=== PATIENT | male | born 1990 | race Caucasian/White ===

== ENCOUNTER 2016-06-24 23:31 | Inpatient (IN) | payer BC, OTHER ==
[~2016-06-24] VITALS: Ht 165.1 cm; Wt 85.9 kg
[~2016-06-24 23:31] MED LIST: FOLI800T PO
[2016-06-24] MEDS ORDERED: CEFTRIAXONE SOD INJ 1 GM ADDVIAL IV STA (23:57)
[2016-06-24] MEDS ORDERED: SODIUM CHLORIDE 0.9% 1000ML 1,000 ML IV STA (23:57)
[2016-06-25] VITALS (11 sets, daily range): BP systolic 73–119; BP diastolic 44–70; PULSE 95–119; TEMP 36.9–38.2; O2SAT 95–99; Ht 165.1 cm; Wt 85.9 kg
[2016-06-25 01:38] LABS: HEMATOCRIT 24.1 % (42-52); MEAN CELL VOLUME 95.3 fL (80-100)
[2016-06-25 01:39] LABS: MEAN CORPUSCULAR HEMOGLOBIN 32.4 pg (25-34); PLATELET COUNT 212 K/uL (130-400)
[2016-06-25 01:40] LABS: MEAN PLATELET VOLUME 10.2 fL (7.4-10.4); RED BLOOD COUNT 2.53 M/uL (4.7-6.1)
[2016-06-25 01:42] LABS: ALKALINE PHOSPHATASE 59 U/L (45-117); ALT/SGPT 25 U/L (12-78); AST/SGOT 57 U/L (15-37); BLOOD UREA NITROGEN 17 mg/dl (7-18); BUN/CREATININE RATIO 16.7 (10-20); C-REACTIVE PROTEIN 7.83 mg/dl (0-0.29); CALCIUM 8.1 mg/dl (8.5-10.1); CARBON DIOXIDE 24 mmol/L (21-32); CHLORIDE 102 mmol/L (98-107); GLUCOSE 110 mg/dl (70-99); POTASSIUM 3.4 mmol/L (3.5-5.1); SODIUM 134 mmol/L (136-145)
[2016-06-25] MEDS ORDERED: IBUPROFEN 800 MG TAB PO STA (01:48)
[2016-06-25] MEDS ORDERED: IBUPROFEN 200 MG TAB ONE (01:49)
[2016-06-25] MEDS ORDERED: IBUPROFEN 600 MG TAB ONE (01:49)
[2016-06-25] MEDS ORDERED: PIPERACILLIN/TAZOBACTAM 3.375 GM/100ML D5W IV STA (01:51)
[2016-06-25 02:07] LABS: ANISOCYTOSIS PRESENT; BASO % 0.2 %; BASO ABS # 0.04 K/uL (0-0.2); COMPLETE YES; EOS % 0.2 %; HOWELL-JOLLY BODIES OCCASIONAL; IG% 0.6 %; LYMPH % 13.2 %; MONO % 11.1 %; NEUT % 74.7 %; POLYCHROMASIA 3+; SPHEROCYTE 3+; VACUOLIZATION 1+
[2016-06-25] MEDS ORDERED: PIPERACILL/TAZOBAC IV 3.375 GM in DEXTROSE 5% 100ML IV STA (02:08)
--- NOTE | 2016-06-25 02:26 | EMERGENCY ROOM VISIT NOTE ---
History Report prepared by Dilcia: Kofi Sanders Under the Supervision of: Dr. Jeffrey Steiner D.O. First contact with patient: 23:49 Chief Complaint: FEVER Stated Complaint: FEVER,WEAKNESS,HEMOLIC ANEMIA History of Present Illness The patient is a 25 year old male who presents to the Emergency Room with complaints of a persistent fever beginning 2 days ago. The patient reports his symptoms have worsened today. He notes that he has hemolytic anemia. He notes having weakness, sore throat, swollen lymph nodes, and sharp pain near his sternum when drinking water. The patient denies having any abdominal pain. He adds that he had a blister on his lip that cut, and he did not cover it until today. He believes it may have become infected. The patient notes he is jaundice on a regular basis, and that it is worse now that he is sick. Source of History: patient Onset: this evening Position: other (global) Quality: other (fever) Timing: other (persistent) Associated Symptoms: + chest pain (upon drinking water), + sorethroat, + weakness, No abdominal pain Note: The patient reports being jaundice. Review of Systems See HPI for pertinent positives & negatives. A total of 10 systems reviewed and were otherwise negative. Past Medical & Surgical Medical Problems: (1) History of hemolytic anemia (2) History of hereditary spherocytosis Family History No pertinent family history stated. Social History Smoking Status: Never Smoker Marital Status: single Occupation Status: student Current/Historical Medications Scheduled Folic Acid (Folic Acid), 800 MCG PO DAILY Allergies Coded Allergies: No Known Allergies (Unverified , 06/25/16) Physical Exam Vital Signs Date Time Temp Pulse Resp B/P Pulse Ox O2 Delivery O2 Flow Rate FiO2 06/25/16 01:46 39.5 06/25/16 01:42 127 20 112/57 96 Room Air 06/25/16 00:01 139 06/24/16 23:37 38.3 141 20 106/41 99 Room Air Physical Exam CONSTITUTIONAL/VITAL SIGNS: Reviewed / noted above. GENERAL: Non-toxic in appearance. INTEGUMENTARY: Warm, dry, and Nitro. HEAD: Normocephalic. EYES: scleral icterus noted. ENT/OROPHARYNX: clear and moist. THROAT: Mild erythematous with few small exudates. LYMPHADENOPATHY/NECK: Is supple without lymphadenopathy or meningismus. RESPIRATORY: Lungs clear and equal. CARDIOVASCULAR: Tachycardic. GI/ABDOMEN: Soft and nontender. No organomegaly or pulsatile mass. No rebound or guarding. Normal bowel sounds. EXTREMITIES: Warm and well perfused. BACK: No CVA tenderness. NEUROLOGICAL: Intact without focal deficits. PSYCHIATRIC: normal affect. MUSCULOSKELETAL: Normally developed with good muscle tone. SKIN: Jaundice. Medical Decision & Procedures ER Provider Diagnostic Interpretation: X ray results and stated below per my interpretation: CHEST X-RAY: No acute disease; no pneumothorax; no pneumonia. Laboratory Results 06/25/16 01:00 Red Blood Count 2.53, Mean Corpuscular Volume 95.3, Mean Corpuscular Hemoglobin 32.4, Mean Corpuscular Hemoglobin Concent 34.0, Mean Platelet Volume 10.2, Neutrophils (%) (Auto) 74.7, Lymphocytes (%) (Auto) 13.2, Monocytes (%) (Auto) 11.1, Eosinophils (%) (Auto) 0.2, Basophils (%) (Auto) 0.2, Neutrophils # (Auto ) 19.31, Lymphocytes # (Auto) 3.40, Monocytes # (Auto) 2.86, Eosinophils # (Auto ) 0.04, Basophils # (Auto) 0.04 06/25/16 01:00 Test 06/25/16 00:10 06/25/16 01:00 Influenza Type A Antigen Neg for Influ A (NEG) Influenza Type B Antigen Neg for Influ B (NEG) White Blood Count 25.80 K/uL (4.8-10.8) Red Blood Count 2.53 M/uL (4.7-6.1) Hemoglobin 8.2 g/dL (14.0-18.0) Hematocrit 24.1 % (42-52) Mean Corpuscular Volume 95.3 fL (80-100) Mean Corpuscular Hemoglobin 32.4 pg (25-34) Mean Corpuscular Hemoglobin Concent 34.0 g/dl (32-36) Platelet Count 212 K/uL (130-400) Mean Platelet Volume 10.2 fL (7.4-10.4) Neutrophils (%) (Auto) 74.7 % Lymphocytes (%) (Auto) 13.2 % Monocytes (%) (Auto) 11.1 % Eosinophils (%) (Auto) 0.2 % Basophils (%) (Auto) 0.2 % Neutrophils # (Auto) 19.31 K/uL (1.4-6.5) Lymphocytes # (Auto) 3.40 K/uL (1.2-3.4) Monocytes # (Auto) 2.86 K/uL (0.11-0.59) Eosinophils # (Auto) 0.04 K/uL (0-0.5) Basophils # (Auto) 0.04 K/uL (0-0.2) RDW Standard Deviation 68.3 fL (36.4-46.3) RDW Coefficient of Variation 20.4 % (11.5-14.5) Immature Granulocyte % (Auto) 0.6 % Immature Granulocyte # (Auto) 0.15 K/uL (0.00-0.02) Nucleated RBC Absolute Count (auto) 0.21 K/uL (0-0) Nucleated Red Blood Cells % 0.8 % Toxic Vacuolation 1+ Polychromasia 3+ Anisocytosis PRESENT Spherocytes 3+ Pappenheimer Bodies 3+ Messina-Cotati Bodies OCCASIONAL Anion Gap 8.0 mmol/L (3-11) Est Creatinine Clear Calc Drug Dose 118.1 ml/min Estimated GFR () 122.4 Estimated GFR (Non- 105.6 BUN/Creatinine Ratio 16.7 (10-20) Lactic Acid Level 0.9 mmol/L (0.4-2.0) Calcium Level 8.1 mg/dl (8.5-10.1) Total Bilirubin 11.8 mg/dl (0.2-1) Direct Bilirubin 1.8 mg/dl (0-0.2) Aspartate Amino Transf (AST/SGOT) 57 U/L (15-37) Alanine Aminotransferase (ALT/SGPT) 25 U/L (12-78) Alkaline Phosphatase 59 U/L (45-117) Total Creatine Kinase 42 U/L (39-308) Creatine Kinase MB < 0.5 ng/ml (0.5-3.6) Creatine Kinase MB Ratio (0-3.0) C-Reactive Protein 7.83 mg/dl (0-0.29) Total Protein 6.9 gm/dl (6.4-8.2) Albumin 4.1 gm/dl (3.4-5.0) Monoscreen NEG (NEG) Laboratory results as stated above per my review. Medications Administered Medications (Trade) Dose Ordered Sig/Juan Pablo Route Start Time Stop Time Status Last Admin Dose Admin Sodium Chloride (Nss 1000ml) 1,000 ml @ 999 mls/hr Q1H1M STAT IV 06/24/16 23:57 06/25/16 00:57 DC 06/25/16 00:15 999 MLS/HR Ceftriaxone Sodium (Rocephin Inj) 1 gm NOW STAT IV 06/24/16 23:57 06/25/16 00:00 DC 06/25/16 00:59 1 GM Ibuprofen (Advil Tab) 200 mg STK-MED ONCE .ROUTE 06/25/16 01:49 06/25/16 01:50 DC 06/25/16 01:53 200 MG Ibuprofen 600 mg 600 mg STK-MED ONCE .ROUTE 06/25/16 01:49 06/25/16 01:50 DC 06/25/16 01:53 600 MG Piperacillin Sod/ Tazobactam Sod/ Dextrose (Zosyn Iv/D5 100ml) 115 ml @ 230 mls/hr NOW STAT IV 06/25/16 02:08 06/25/16 02:37 06/25/16 02:22 230 MLS/HR ECG Indication: other (fever) Rate (beats per minute): 134 Rhythm: sinus tachycardia Findings: T-wave inversion (Inferior), no acute ischemic change, no ectopy ED Course 2350: Previous medical records were reviewed. The patient was evaluated in room A9B. A complete history and physical examination was performed. 2357: Ordered Rocephin Inj 1 gm IV, and NSS 1,000 ml @ 999 mls/hr IV. 0148: Ordered Ibuprofen 800 mg PO. 0151: Ordered Zosyn Iv 3.375 gm IV. 0208: Ordered Piperacillin Sod/Tazobactam Sod 3.375 gm/Dextrose 115 ml @ 230 mls /hr Protocol IV. 0220: Discussed the patient's case with Dr. Major. The patient will be evaluated for further treatment and disposition. 0225: On reevaluation, the patient is hemodynamically stable. I discussed the results and findings with the patient. He verbalized agreement of the treatment plan. I spoke with Dr. Major of the [facility]. The patient will be evaluated for further management and care. Medical Decision Differential includes viral illness, influenza, streptococcal pharyngitis, meningitis, pneumonia, sinusitis, UTI, pyelonephritis, otitis media. This is a 25-year-old male who presents to the ED with a chief complaint of a fever. The patient states that he has a history of hereditary spherocytosis. He states that he has noticed some increase in jaundice. He reports a blister on his lower lip. The patient states that his nose and his throat felt little swollen and he has a slight sore throat. The patient reports that his hemoglobin is usually around 11.5-12.5. The patient feels like he is having anemia symptoms. His temperatures here is 38.3. His heart rate was 141. His exam reveals tachycardia. His throat is mildly erythematous with a few small exudates. Strep test was negative. He does have some mild anterior lymphadenopathy. Exam was otherwise unremarkable. EKG shows a sinus tach at a rate of 134. There are some inferior T-wave inversions. White blood cell count was 25.8. Hemoglobin is 8.2. Flu swab was negative. Chest x-ray did not show acute disease. Lactate was normal. I spoke with the hospitalist, who will see the patient for further inpatient evaluation and care. The patient was treated with IV Rocephin, IV Zosyn and IV fluids. He was given by mouth Motrin. Consults Time Called: 214 Consulting Physician: Dr. Major, [facility] [place] Returned Call: [phone] Discussed the patient's case with Dr. Major. The patient will be evaluated for further treatment and disposition. Impression Primary Impression: Fever Additional Impressions: Anemia Sepsis History of hereditary spherocytosis Scribe Attestation The scribe's documentation has been prepared under my direction and personally reviewed by me in its entirety. I confirm that the note above accurately reflects all work, treatment, procedures, and medical decision making performed by me. Departure Information Referrals No Doctor, Assigned (PCP) Patient Instructions [facility] Problem Qualifiers Primary Impression: Fever Fever type: fever of unknown origin following delivery Qualified Codes: O86.4 - Pyrexia of unknown origin following delivery
[2016-06-25] MEDS ORDERED: ACETAMINOPHEN 325 MG TAB PO PRN (02:45)
[2016-06-25] MEDS ORDERED: ZOLPIDEM TARTRATE 5 MG TAB PO PRN (02:45)
[2016-06-25] MEDS ORDERED: VANCOMYCIN INJ 1,000 MG in SODIUM CHLORIDE 0.9% 250ML 250 ML IV STA (02:48)
[2016-06-25] MEDS ORDERED: LEVALBUTEROL/IPRATROPIUM NEB INH SCH (03:00)
[2016-06-25] MEDS ORDERED: ONDANSETRON INJ 2 MG/ML 2 ML VIAL IV PRN (03:00)
[2016-06-25] MEDS ORDERED: LEVALBUTEROL 1.25MG/0.5ML NEB INH PRN (03:15)
[2016-06-25] MEDS ORDERED: IPRATROPIUM BROMIDE NEB SOLN 0.02% 2.5 ML VIAL INH PRN (03:15)
[2016-06-25] MEDS ORDERED: VANCOMYCIN INJ 2,200 MG in SODIUM CHLORIDE 0.9% 500ML 500 ML IV SCH (04:00)
[2016-06-25] MEDS ORDERED: PIPERACILL/TAZOBAC CONSULT ACTIVE PRN (04:00)
[2016-06-25] MEDS ORDERED: VANCOMYCIN CONSULT ACTIVE PRN (04:00)
[2016-06-25] MEDS: METHYLPREDNISOLONE IV 60 MG in SYRINGE 0 ML IV SCH ×4 (04:34→22:37)
--- NOTE | 2016-06-25 05:08 | History and Physical ---
History & Physical Date & Time of Service: Jun 25, 2016 at 04:56 Chief Complaint: Hx Of Hereditary Spherocytosis, Sirs Primary Care Physician: Imelda Medrano D.O. History of Present Illness Source: patient The patient is a 25-year-old male with a history of hereditary spherocytosis and hemolytic anemia, who noted a temperature, sore throat, generalized weakness , swollen lymph nodes and a lower lip lesion at began about 2 days prior to arrival. He is also noted epigastric area discomfort when drinking water, but does not have generalized abdominal pain or nausea or vomiting. The lesion on his lip initially began as what he thought was a blister, which he manipulated and is concerned is become secondarily infected. He does note that he has baseline jaundice, which typically gets worse when he is sick. Social History Smoking Status: Never Smoker Smokeless Tobacco Use: No Alcohol Use: none Drug Use: none Marital Status: single Occupational Status: student Multi-Drug Resistant Organisms History of MDRO: No Allergies Coded Allergies: No Known Allergies (Unverified , 06/25/16) Home Medications Scheduled Folic Acid (Folic Acid), 800 MCG PO DAILY Review of Systems The patient denies chest pain, palpitations, shortness of breath, cough, lower extremity swelling, vision change, hearing change, weight change, nausea, vomiting, abdominal pain, pelvic pain, blood in urine or stool, dysuria, urinary frequency or urgency, headache, memory loss, rash, abnormal bruising or bleeding, imbalance, focal weakness, numbness or tingling in arms or legs, arthralgias or myalgias, back or neck pain. The review of systems is otherwise negative other than for that already noted above, and at least 10 systems have been reviewed. Physical Exam Vital Signs Date Time Temp Pulse Resp B/P Pulse Ox O2 Delivery O2 Flow Rate FiO2 06/25/16 03:37 117 98 06/25/16 03:07 119 06/25/16 02:21 121 23 96 06/25/16 02:16 124 22 96 06/25/16 02:11 127 21 96 06/25/16 02:01 126 23 96 06/25/16 01:58 106/52 06/25/16 01:56 125 19 98 06/25/16 01:51 130 23 98 06/25/16 01:46 39.5 06/25/16 01:46 135 22 97 06/25/16 01:42 127 20 112/57 96 Room Air 06/25/16 01:41 127 23 112/57 96 06/25/16 01:36 130 96 06/25/16 01:31 133 96 06/25/16 01:21 131 22 97 06/25/16 01:16 128 23 98 06/25/16 01:11 125 23 98 06/25/16 01:06 128 22 98 06/25/16 01:01 128 24 97 06/25/16 00:56 130 21 99 06/25/16 00:51 129 23 06/25/16 00:46 129 22 97 06/25/16 00:41 130 20 100 06/25/16 00:36 128 22 99 06/25/16 00:31 126 20 97 06/25/16 00:26 126 21 97 06/25/16 00:21 130 22 95 06/25/16 00:16 131 23 96 06/25/16 00:11 129 23 97 06/25/16 00:06 134 24 97 06/25/16 00:01 139 06/25/16 00:01 134 23 06/24/16 23:56 137 21 95 06/24/16 23:51 142 24 06/24/16 23:37 38.3 141 20 106/41 99 Room Air The patient is awake, well-developed and adequately nourished, alert and oriented 3, appears jaundiced, normocephalic and atraumatic, lying in bed and in no acute distress. HEENT--PERRL, EOMI, mucous membranes and oropharynx dry. Scleral icterus Neck--supple, no JVD or bruits, thyroid normal, trachea midline, no adenopathy. Heart--normal S1 and S2, no extra beats, no murmurs, rubs or gallops. Lungs--clear bilaterally with good air movement, no respiratory distress, no accessory muscle use. Abdomen--normal bowel sounds and soft, nontender and nondistended, no hernias or masses, no organomegaly. Extremities--no cyanosis, clubbing or edema. There are good distal pulses b/l. Dermatologic--normal skin turgor, jaundiced, warm and dry, no abnormal lymph nodes, no rash. Neurologic--cranial nerves II through XII grossly intact, motor and sensory examination normal. Rheumatologic--normal range of motion, nontender, muscles and joints. Psychiatric--normal affect. Diagnostics Laboratory Results Results Past 24 Hours Test 06/25/16 00:10 06/25/16 01:00 06/25/16 03:45 Range/Units Influenza Type A Antigen Neg for Influ A NEG Influenza Type B Antigen Neg for Influ B NEG White Blood Count 25.80 4.8-10.8 K/uL Red Blood Count 2.53 4.7-6.1 M/uL Hemoglobin 8.2 14.0-18.0 g/dL Hematocrit 24.1 42-52 % Mean Corpuscular Volume 95.3 80-100 fL Mean Corpuscular Hemoglobin 32.4 25-34 pg Mean Corpuscular Hemoglobin Concent 34.0 32-36 g/dl Platelet Count 212 130-400 K/uL Mean Platelet Volume 10.2 7.4-10.4 fL Neutrophils (%) (Auto) 74.7 % Lymphocytes (%) (Auto) 13.2 % Monocytes (%) (Auto) 11.1 % Eosinophils (%) (Auto) 0.2 % Basophils (%) (Auto) 0.2 % Neutrophils # (Auto) 19.31 1.4-6.5 K/uL Lymphocytes # (Auto) 3.40 1.2-3.4 K/uL Monocytes # (Auto) 2.86 0.11-0.59 K/uL Eosinophils # (Auto) 0.04 0-0.5 K/uL Basophils # (Auto) 0.04 0-0.2 K/uL RDW Standard Deviation 68.3 36.4-46.3 fL RDW Coefficient of Variation 20.4 11.5-14.5 % Immature Granulocyte % (Auto) 0.6 % Immature Granulocyte # (Auto) 0.15 0.00-0.02 K/uL Nucleated RBC Absolute Count (auto) 0.21 0-0 K/uL Nucleated Red Blood Cells % 0.8 % Toxic Vacuolation 1+ Polychromasia 3+ Anisocytosis PRESENT Spherocytes 3+ Pappenheimer Bodies 3+ Messina-Mcintire Bodies OCCASIONAL Sodium Level 134 136-145 mmol/L Potassium Level 3.4 3.5-5.1 mmol/L Chloride Level 102 98-107 mmol/L Carbon Dioxide Level 24 21-32 mmol/L Anion Gap 8.0 3-11 mmol/L Blood Urea Nitrogen 17 7-18 mg/dl Creatinine 1.00 0.60-1.40 mg/dl Est Creatinine Clear Calc Drug Dose 118.1 ml/min Estimated GFR () 122.4 Estimated GFR (Non- 105.6 BUN/Creatinine Ratio 16.7 10-20 Random Glucose 110 70-99 mg/dl Lactic Acid Level 0.9 0.4-2.0 mmol/L Calcium Level 8.1 8.5-10.1 mg/dl Total Bilirubin 11.8 0.2-1 mg/dl Direct Bilirubin 1.8 0-0.2 mg/dl Aspartate Amino Transf (AST/SGOT) 57 15-37 U/L Alanine Aminotransferase (ALT/SGPT) 25 12-78 U/L Alkaline Phosphatase 59 45-117 U/L Total Creatine Kinase 42 39-308 U/L Creatine Kinase MB < 0.5 0.5-3.6 ng/ml Creatine Kinase MB Ratio 0-3.0 C-Reactive Protein 7.83 0-0.29 mg/dl Total Protein 6.9 6.4-8.2 gm/dl Albumin 4.1 3.4-5.0 gm/dl Monoscreen NEG NEG Microbiology Results 06/25/16 Blood Culture, Received Pending 06/24/16 Blood Culture, Received Pending EKG EKG shows sinus tachycardia at 134 bpm, with T-wave inversions in leads 3 and aVF. Impression Assessment and Plan Hemolytic anemia, history of hereditary spherocytosis, worsening jaundice by history, with febrile illness, and SIRS--the patient will be admitted, placed on Solu-Medrol 60 mg IV every 6 hours, vancomycin IV per renal dosing, Zosyn 3.375 mg IV every 6 hours. We'll consult infectious disease and hematology. Continue folic acid 800 g by mouth daily. He does still have his spleen. EKG with signs of inferior ischemia, with normal cardiac enzymes, with probable supply demand mismatch--the patient be admitted to the telemetry unit, for serial cardiac enzymes, cardiac rhythm monitoring and a 2-D echocardiogram with Dopplers. We'll consult cardiology see patient. We'll give patient potassium chloride 40 mEq by mouth, to correct potassium level of 3.4. Level of Care Telemetry Advanced Directives Existing Advance Directive: No Existing Living Will: No Existing Power of Performance Test Engineer: No Resuscitation Status FULL RESUSCITATION VTE Prophylaxis VTE Risk Assessment Done? Y/N: Yes Risk Level: Moderate Social Service Consult None Apply
[2016-06-25] MEDS: PIPERACILL/TAZOBAC IV 3.375 GM in DEXTROSE 5% 100ML 100 ML IV SCH ×3 (06:18→22:37)
--- NOTE | 2016-06-25 06:39 | DIAGNOSTIC IMAGING REPORT ---
CHEST ONE VIEW PORTABLE CLINICAL HISTORY: Fever and sepsis COMPARISON STUDY: 02/06/2015 FINDINGS: The cardiac and mediastinal contours are normal. There is no evidence of focal pulmonary consolidation. There is no evidence of failure. No pleural effusions are visualized.[ IMPRESSION: No active disease in the chest. Electronically signed by: Zachariah Messina M.D. 06/25/2016 6:38 AM Dictated Date/Time: 06/25/2016 6:38 AM
--- NOTE | 2016-06-25 06:49 | Pharmacy Progress Note ---
Pharmacy Antibiotic Consult Date of Service: Jun 25, 2016. Pharmacy Dosing Scope Pharmacy is consulted to initiate Vancomycin IV dosing therapy, order appropriate labs and adjust drug dose/frequency. Subjective The patient is a 25 year old male admitted on Jun 25, 2016 at 02:44. Objective Height (Feet): 5 Height (Inches): 5.00 Weight (Kilograms): 89.500 Lab Results (24hrs): Laboratory Tests Test 06/25/16 01:00 BUN/Creatinine Ratio 16.7 Blood Urea Nitrogen 17 mg/dl Creatinine 1.00 mg/dl White Blood Count 25.80 K/uL Red Blood Count 2.53 M/uL Hemoglobin 8.2 g/dL Hematocrit 24.1 % Mean Corpuscular Volume 95.3 fL Mean Corpuscular Hemoglobin 32.4 pg Mean Corpuscular Hemoglobin Concent 34.0 g/dl Platelet Count 212 K/uL Mean Platelet Volume 10.2 fL Neutrophils (%) (Auto) 74.7 % Lymphocytes (%) (Auto) 13.2 % Monocytes (%) (Auto) 11.1 % Eosinophils (%) (Auto) 0.2 % Basophils (%) (Auto) 0.2 % Neutrophils # (Auto) 19.31 K/uL Lymphocytes # (Auto) 3.40 K/uL Monocytes # (Auto) 2.86 K/uL Eosinophils # (Auto) 0.04 K/uL Basophils # (Auto) 0.04 K/uL Micro Results: * Blood and throat cultures are pending Recent Pertinent Medications * Pt is also receiving Zosyn 3.375gm IV every 8 hours and Levaquin 500mg IV every 24 hours Assessment & Plan Loading dose: 2200mg (~ 25mg/kg) then 1350mg (~ 15mg/kg) IV every 10 hours. Goal trough level estimate: between 15-18 mcg/mL. Trough level is ordered for 1000 on 06/26/16. Pharmacy will continue to follow and will adjust dose/frequency as necessary. Thank you
[2016-06-25] MEDS: LEVALBUTEROL 1.25MG/0.5ML NEB INH SCH ×3 (07:12→19:55)
[2016-06-25] MEDS: IPRATROPIUM BROMIDE NEB SOLN 0.02% 2.5 ML VIAL INH SCH ×3 (07:12→19:54)
[2016-06-25] MEDS: FoLIC ACID TAB 400 MCG TAB PO SCH (07:56)
[2016-06-25] MEDS: LEVOFLOXACIN / D5W 500 MG in PREMIXED IN D5W 100 ML IV SCH (09:51)
[2016-06-25 09:53] LABS: HEMATOCRIT 22.5 % (42-52); MEAN CELL VOLUME 97.4 fL (80-100); MEAN CORPUSCULAR HEMOGLOBIN 32.5 pg (25-34); MEAN CORPUSCULAR HGB CONC 33.3 g/dl (32-36); MEAN PLATELET VOLUME 10.4 fL (7.4-10.4); PLATELET COUNT 186 K/uL (130-400); RED BLOOD COUNT 2.31 M/uL (4.7-6.1); WHITE BLOOD COUNT 19.79 K/uL (4.8-10.8)
[2016-06-25 10:29] LABS: BLOOD UREA NITROGEN 14 mg/dl (7-18); BUN/CREATININE RATIO 14.6 (10-20); CALCIUM 8.5 mg/dl (8.5-10.1); CARBON DIOXIDE 21 mmol/L (21-32); CHLORIDE 105 mmol/L (98-107); CREATININE 0.99 mg/dl (0.60-1.40); GLUCOSE 198 mg/dl (70-99); POTASSIUM 3.5 mmol/L (3.5-5.1); SODIUM 138 mmol/L (136-145)
[2016-06-25 10:30] LABS: ANISOCYTOSIS PRESENT; BASO % 0.1 %; BASO ABS # 0.01 K/uL (0-0.2); COMPLETE YES; IG% 0.3 %; LYMPH ABS # 1.39 K/uL (1.2-3.4); MONO % 1.8 %; NEUT % 90.8 %; POLYCHROMASIA 3+; SPHEROCYTE 3+
--- NOTE | 2016-06-25 11:03 | CARDIOLOGY CONSULTATION ---
DATE OF CONSULTATION: 06/25/2016 DATE OF CONSULTATION: 06/25/2016. REASON FOR CONSULTATION: Abnormal EKG. CONSULTATION REQUESTED BY: Dr. Major. HISTORY OF PRESENT ILLNESS: Mr. Brumfield is a pleasant 25-year-old with a history of hereditary spherocytosis, who was admitted overnight in the setting of persistent fevers, weakness and sore throat. He was noted to be anemic, jaundiced and on EKG there was suggestion of inferior T-waves. Cardiology consulted for further management recommendations regarding abnormal EKG. The patient has no significant cardiac history or family history of premature coronary artery disease or sudden cardiac . At baseline he is active, exercising frequently without chest pain, palpitations , presyncope. He has had hemolytic anemia diagnosed since he was 11, episodes of anemia and hemohemolysis in the past have been precipitated by illness. Currently, the patient states that noticed fevers approximately 2 days ago with gradual progression of weakness and sore throat as well as swelling in his lymph nodes. He denied any marivel chest pain. He did feel a sharp discomfort near his sternum when he was drinking water. He also noted a small cut on his lip which he feels has progressed in the setting of this illness. Upon reaching the Emergency Department, the patient was initially in sinus tachycardia with heart rates to the 130s. He was febrile to a temperature of 39.5. His lab work was remarkable for a white blood cell count of 25, a hemoglobin of 8.2 and an elevated total bilirubin of 11.8. He had a chest x-ray which showed no acute cardiopulmonary process and an EKG which showed sinus tachycardia with T-wave inversions inferior leads. Initial CK-MB was negative. He was admitted to telemetry overnight, was started on IV fluids and broad spectrum antibiotics as well as IV steroids. This morning patient states he is feeling better. His heart rate has trended down to the 90s. He continues to deny any significant chest pain, palpitations or presyncope. PAST MEDICAL HISTORY: Hereditary spherocytosis. SOCIAL HISTORY: He is a never smoker, drinks on occasion. 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 ALLERGIES: He has no known drug allergies. HOME MEDICATIONS: Include folic acid. REVIEW OF SYSTEMS: A 10-point review of systems completed and otherwise negative unless listed in HPI. PHYSICAL EXAMINATION: VITAL SIGNS: Temperature 37.8, pulse 95, blood pressure 100/66, satting 99% on room air. GENERAL: The patient appears comfortable in no acute distress. HEAD, EYES, EARS, NOSE, AND THROAT: Sclerae are mildly icteric. Oropharynx is clear. Mucous membranes are moist. He has mild lymphadenopathy in his neck, but otherwise supple. He has no jugular venous distention. LUNGS: Clear to auscultation bilaterally. HEART: Tachycardic but regular with no appreciable murmurs, rubs or gallops. ABDOMEN: Soft, nontender, nondistended with positive bowel sounds, no hepatosplenomegaly. SKIN: He is jaundiced, but no other significant rashes or lesions. He has intact distal pulses. NEUROLOGIC: Cranial nerves II-XII are grossly intact. PSYCHIATRIC: Alert and oriented x3 with normal appropriate mood and affect. Chest x-ray showed no active disease. Labs as discussed in the HPI. ECHOCARDIOGRAM: Echo reviewed at bedside which showed preserved LV function with no significant valvular pathology and no regional wall motion abnormalities. Telemetry reviewed, sinus tachycardia with no other significant arrhythmia. IMPRESSION AND PLAN: 1. Hereditary spherocytosis with anemia. 2. Sepsis. 3. Inferior T-wave inversions on EKG. 4. Sinus tachycardia. Overall from a cardiovascular standpoint low suspicion that EKG findings represent hemodynamically significant coronary disease in this 25 year old. No evidence of acute coronary syndrome. Have reviewed patient's echo today at bedside and no regional wall motion abnormalities or significant valvular pathology. From a cardiac standpoint, would continue to treat possible infectious source as well as anemia. No further cardiac workup necessary at this time. If new issues arise, we will revisit but otherwise cardiology to follow from a distance. Thank you for allowing us to participate in the care of this patient. Please contact with any questions. CARLOS
--- NOTE | 2016-06-25 14:16 | Oncology Consultation ---
Oncology/Heme Consultation Date of Consultation: Jun 25, 2016. Attending Physician: Isaias Ricks D.O. 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 He describes that at the age of 10 he needed a transfusion in a second transfusion was given at the age of 12 because of anemia and presumed hemolysis. He has been told that he has hereditary spherocytosis. His care at [facility] has been primarily at [facility]. He can't recall seeing a particular incinerator attendant in the past however he states that he has seen some hematologists in that from time to time there is the speculation that a splenectomy may be needed. He is status post cholecystectomy a few years ago for gallstones. He states that no one else in the family has HS that he is aware of. He is now admitted with a febrile process. He states that he felt he was getting anemic a few days ago and he has grown more jaundiced he feels. He denies shortness of breath however he does feel that he has some lung congestion. His urine has been a little darker than usual. He denies any abdominal pain. Past Medical/Surgical History Medical Problems: (1) Anemia Status: Acute (2) Fever Status: Acute (3) Sepsis Status: Acute Social History Smoking Status: Never Smoker Smokeless Tobacco Use: No Alcohol Use: none Drug Use: none Marital Status: single Occupation Status: student Allergies Coded Allergies: No Known Allergies (Unverified , 06/25/16) Home Medications Scheduled Folic Acid (Folic Acid), 800 MCG PO DAILY Current Inpatient Medications Current Inpatient Medications Medications (Trade) Dose Ordered Sig/Juan Pablo Route Start Time Stop Time Status Last Admin Dose Admin Acetaminophen (Tylenol Tab) 650 mg Q4H PRN PO 06/25/16 02:45 07/25/16 02:44 06/25/16 04:48 650 MG Zolpidem Tartrate (Ambien Tab) 5 mg HSZ PRN PO 06/25/16 02:45 07/25/16 02:44 Folic Acid 800 mcg 800 mcg QAM PO 06/25/16 09:00 07/25/16 08:59 06/25/16 07:56 800 MCG Piperacillin Sod/ Tazobactam Sod 3.375 gm/Dextrose 115 ml @ 28 mls/hr Q8H IV 06/25/16 06:30 07/05/16 06:29 06/25/16 06:18 28 MLS/HR Methylprednisolone Sodium Succinate/ Syringe (Solu-Medrol IV/ Syringe) 0.96 ml @ 1.5 mls/min Q6H IV 06/25/16 04:30 07/25/16 04:29 06/25/16 09:51 1.5 MLS/MIN Ondansetron HCl 4 mg 4 mg Q6H PRN IV 06/25/16 03:00 07/25/16 02:59 Levofloxacin/Prmx (Levaquin / D5W/ Premixed D5W) 100 ml @ 100 mls/hr Q24H IV 06/25/16 08:00 07/05/16 07:59 06/25/16 09:51 100 MLS/HR Ipratropium [place] (Atrovent 0.02% 0.5MG/2.5ML Neb) 0.5 mg Q6R INH 06/25/16 09:00 07/25/16 08:59 06/25/16 07:12 0.5 MG Levalbuterol (Xopenex 1.25MG/ 0.5ML Neb) 1.25 mg Q6R INH 06/25/16 09:00 07/25/16 08:59 06/25/16 07:12 1.25 MG Ipratropium [place] (Atrovent 0.02% 0.5MG/2.5ML Neb) 0.5 mg Q2H PRN INH 06/25/16 03:15 07/25/16 03:14 Levalbuterol (Xopenex 1.25MG/ 0.5ML Neb) 1.25 mg Q2H PRN INH 06/25/16 03:15 07/25/16 03:14 Piperacillin Sod/ Tazobactam Sod (Consult) 1 ea UD PRN N/A 06/25/16 04:00 07/25/16 03:59 Vancomycin HCl 1 ea 1 ea UD PRN N/A 06/25/16 04:00 07/25/16 03:59 Vancomycin HCl/ Sodium Chloride (Vancomycin Inj/ Nss 250ml) 277 ml @ 125 mls/hr Q10H IV 06/25/16 14:30 07/05/16 14:29 Review of Systems Constitutional: Negative for weight loss, or night sweats, Eyes: Negative for event change of vision ENT: Negative for epistaxis, nasal discharge, sore throat, or deafness Cardiovascular: Negative for chest pain, palpitations, dizziness, diaphoresis Respiratory: Negative for new shortness of breath,hemoptysis, has had a nonproductive cough Gastrointestinal: Negative for diarrhea, hematemesis, melena, nausea, vomiting , or dyspepsia Integumentary (skin): Negative for rash or jaundice discoloration Genitourinary: Negative for urinary frequency, hematuria, or dysuria Neurological: Negative for weakness, seizure activity, headache, or dizziness Lymphatic/Hematologic: Negative for petechiae, bleeding or new adenopathy Musculoskeletal: Negative for new joint or back pain Allergic/Immunologic: Negative for unusual rash or pruritis. Physical Exam Date Time Temp Pulse Resp B/P Pulse Ox O2 Delivery O2 Flow Rate FiO2 06/25/16 12:28 36.9 98 16 105/64 97 Room Air 06/25/16 08:00 Room Air 06/25/16 07:58 37.0 108 16 100/66 95 Room Air 06/25/16 07:12 95 20 99 Room Air 06/25/16 03:57 38.2 113 17 117/70 97 Room Air 06/25/16 03:37 117 98 06/25/16 03:07 119 06/25/16 02:21 121 23 96 06/25/16 02:16 124 22 96 06/25/16 02:11 127 21 96 06/25/16 02:01 126 23 96 06/25/16 01:58 106/52 06/25/16 01:56 125 19 98 06/25/16 01:51 130 23 98 06/25/16 01:46 39.5 06/25/16 01:46 135 22 97 06/25/16 01:42 127 20 112/57 96 Room Air 06/25/16 01:41 127 23 112/57 96 06/25/16 01:36 130 96 06/25/16 01:31 133 96 06/25/16 01:21 131 22 97 06/25/16 01:16 128 23 98 06/25/16 01:11 125 23 98 06/25/16 01:06 128 22 98 06/25/16 01:01 128 24 97 06/25/16 00:56 130 21 99 06/25/16 00:51 129 23 06/25/16 00:46 129 22 97 06/25/16 00:41 130 20 100 06/25/16 00:36 128 22 99 06/25/16 00:31 126 20 97 06/25/16 00:26 126 21 97 06/25/16 00:21 130 22 95 06/25/16 00:16 131 23 96 06/25/16 00:11 129 23 97 06/25/16 00:06 134 24 97 06/25/16 00:01 139 06/25/16 00:01 134 23 06/24/16 23:56 137 21 95 06/24/16 23:51 142 24 06/24/16 23:37 38.3 141 20 106/41 99 Room Air Constitutional: vitals are stable. Jaundiced appearing young man Eyes: Eyes are JUVENCIO EOMI without conjuctival erythema or icterus. ENT: External examination was negative for masses. Neck: Negative for masses or palpable thyromegaly Respiratory: Lung sounds were generally clear bilaterally Cardiovascular: Heart was RRR without significant murmur, gallops or rubs Gastrointestinal: No palpable hepatomegaly the spleen is palpable approximate 4 cm below the left costal margin and nontender Lymphatic system: there was no palpable peripheral lymphadenopathy Musculoskeletal System: The musculoskeletal system seemed concordant with age. Skin: The skin was negative for jaundice. Neurologic exam: The exam was negative for any focal findings. Deep tendon reflexes were equal and symmetrical. Psychiatric exam: Was essentially negative with normal mood and effect. Extremities: Negative for edema erythema Laboratory Results Last 24 Hours Test 06/25/16 00:10 06/25/16 01:00 06/25/16 03:45 06/25/16 09:10 Influenza Type A Antigen Neg for Influ A Influenza Type B Antigen Neg for Influ B White Blood Count 25.80 K/uL 19.79 K/uL Red Blood Count 2.53 M/uL 2.31 M/uL Hemoglobin 8.2 g/dL 7.5 g/dL Hematocrit 24.1 % 22.5 % Mean Corpuscular Volume 95.3 fL 97.4 fL Mean Corpuscular Hemoglobin 32.4 pg 32.5 pg Mean Corpuscular Hemoglobin Concent 34.0 g/dl 33.3 g/dl Platelet Count 212 K/uL 186 K/uL Mean Platelet Volume 10.2 fL 10.4 fL Neutrophils (%) (Auto) 74.7 % 90.8 % Lymphocytes (%) (Auto) 13.2 % 7.0 % Monocytes (%) (Auto) 11.1 % 1.8 % Eosinophils (%) (Auto) 0.2 % 0.0 % Basophils (%) (Auto) 0.2 % 0.1 % Neutrophils # (Auto) 19.31 K/uL 17.98 K/uL Lymphocytes # (Auto) 3.40 K/uL 1.39 K/uL Monocytes # (Auto) 2.86 K/uL 0.36 K/uL Eosinophils # (Auto) 0.04 K/uL 0.00 K/uL Basophils # (Auto) 0.04 K/uL 0.01 K/uL RDW Standard Deviation 68.3 fL 75.2 fL RDW Coefficient of Variation 20.4 % 21.5 % Immature Granulocyte % (Auto) 0.6 % 0.3 % Immature Granulocyte # (Auto) 0.15 K/uL 0.05 K/uL Nucleated RBC Absolute Count (auto) 0.21 K/uL 0.13 K/uL Nucleated Red Blood Cells % 0.8 % 0.7 % Toxic Vacuolation 1+ Polychromasia 3+ 3+ Anisocytosis PRESENT PRESENT Spherocytes 3+ 3+ Pappenheimer Bodies 3+ 1+ [place] Bodies OCCASIONAL Sodium Level 134 mmol/L 138 mmol/L Potassium Level 3.4 mmol/L 3.5 mmol/L Chloride Level 102 mmol/L 105 mmol/L Carbon Dioxide Level 24 mmol/L 21 mmol/L Anion Gap 8.0 mmol/L 12.0 mmol/L Blood Urea Nitrogen 17 mg/dl 14 mg/dl Creatinine 1.00 mg/dl 0.99 mg/dl Est Creatinine Clear Calc Drug Dose 118.1 ml/min 119.3 ml/min Estimated GFR () 122.4 123.9 Estimated GFR (Non- 105.6 106.9 BUN/Creatinine Ratio 16.7 14.6 Random Glucose 110 mg/dl 198 mg/dl Lactic Acid Level 0.9 mmol/L Calcium Level 8.1 mg/dl 8.5 mg/dl Total Bilirubin 11.8 mg/dl Direct Bilirubin 1.8 mg/dl Aspartate Amino Transf (AST/SGOT) 57 U/L Alanine Aminotransferase (ALT/SGPT) 25 U/L Alkaline Phosphatase 59 U/L Total Creatine Kinase 42 U/L Creatine Kinase MB < 0.5 ng/ml Creatine Kinase MB Ratio C-Reactive Protein 7.83 mg/dl Total Protein 6.9 gm/dl Albumin 4.1 gm/dl Monoscreen NEG Troponin I < 0.015 ng/ml Assessment & Plan Peripheral smear reviewed. I suspect he does have hereditary spherocytosis however we will need to get records to document this and apparently they are at [facility]. His hemoglobin is 7.5. We will check an LDH as well as a reticulocyte count. A direct Armand should also be checked. I suspect that if it drops any further then he will need transfused. We will see how this settles out but if transfusion is become a repeated necessity then splenectomy down the road would need to be entertained once again.
--- NOTE | 2016-06-25 15:00 | ECHOCARDIOGRAM REPORT ---
*NOTICE TO RECEIVING CONSTITUTION PARTY AGENCY This information is strictly Confidential and protected under [place] law. [place] law prohibits you from making any further disclosure of this information unless further disclosure is expressly permitted by the written consent of the person to whom it pertains or is authorized by law. A general authorization for the release of medical or other information is not sufficient for this purpose. Hospital accepts no responsibility if the information is made available to any other person, INCLUDING THE PATIENT. Interpretation Summary * Name: ASAEL NIETO Study Date: 06/25/2016 09:23 AM BP: 117/70 mmHg * Patient Location: .2\S\S239\S\1 HR: 102 * : 1990 (M/d/yyyy) Gender: Male Height: 65 in * Age: 25 yrs Ethnicity: CA Weight: 197 lb * Ordering Physician: Quan Major * Referring Physician: Self, Referred * Performed By: Hoa Hoyt RDCS * * Reason For Study: Abnormal EKG, hemolytic anemia, hereditary spherocytosis * BSA: 2.0 m2 * -- Conclusions -- * 1. Normal LV size. Normal LV wall thickness. * 2. Normal LV systolic function. LVEF 60-70 %. No regional wall motion abnormalities. * 3. Normal RV size and function. * 4. No significant valvular pathology. * 5. Normal estimated PA and RA pressures. * 6. No prior studies for comparison. Procedure Details * A complete two-dimensional transthoracic echocardiogram was performed (2D, M-mode, Doppler and color flow Doppler). * The study was technically adequate. Left Ventricle * The left ventricle is grossly normal size. * There is normal left ventricular wall thickness. * Ejection Fraction = 65-70%. Right Ventricle * The right ventricle is grossly normal size. * The right ventricular systolic function is normal as assessed by tricuspid annular plane systolic excursion (TAPSE) (normal >1.5 cm). Atria * The left atrial size is normal. * Right atrial size is normal. * No ASD detected; PFO is not assessed. Mitral Valve * The mitral valve is grossly normal. * There is no mitral valve stenosis. * Significant mitral regurgitation is absent. Tricuspid Valve * The tricuspid valve is not well visualized, but is grossly normal. * There is trace tricuspid regurgitation. Aortic Valve * The aortic valve opens well. * The aortic valve is trileaflet. * No hemodynamically significant valvular aortic stenosis. * There is no significant aortic regurgitation. Pulmonic Valve * The pulmonary valve is inadequately visualized, but the Doppler data is adequate for interpretation. * There is no pulmonic valvular stenosis. * There is no significant pulmonary regurgitation. Great Vessels * The aortic root and proximal ascending aorta are normal sized. * No Doppler or imaging evidence of an aortic coarctation. Pericardium/Pleural * There is no pericardial effusion. Great Vessels * Normal inferior vena cava size and collapsability with sniff indicates a normal right atrial pressure of 3 mmHg MMode 2D Measurements and Calculations IVSd 10 cm IVSs 1.5 cm LVIDd 4.7 cm LVIDs 3.4 cm LVPWd 1.0 cm LVPWs 1.5 cm IVS/LVPW 0.99 FS 27.9 % EDV(Teich) 102.5 ml ESV(Teich) 47.1 ml EF(Teich) 54.1 % EDV(cubed) 104.0 ml ESV(cubed) 38.9 ml EF(cubed) 62.6 % % IVS thick 54.7 % % LVPW thick 49.7 % LV mass(C)d 165.9 grams LV mass(C)dI 84.4 grams/m\S\2 LV mass(C)s 191.4 grams LV mass(C)sI 97.4 grams/m\S\2 SV(Teich) 55.5 ml SI(Teich) 28.2 ml/m\S\2 SV(cubed) 65.1 ml SI(cubed) 33.1 ml/m\S\2 EPSS 0.73 cm Ao root diam 3.0 cm Ao root area 7.3 cm\S\2 ACS 1.8 cm LA dimension 4.1 cm asc Aorta Diam 3.2 cm LA/Ao 1.3 LVOT diam 2.1 cm LVOT area 3.4 cm\S\2 LVAd ap4 25.4 cm\S\2 LVLd ap4 8.7 cm EDV(MOD-sp4) 62.0 ml LVAs ap4 13.3 cm\S\2 LVLs ap4 6.9 cm ESV(MOD-sp4) 21.0 ml EF(MOD-sp4) 66.1 % LVAd ap2 33.2 cm\S\2 LVLd ap2 9.2 cm EDV(MOD-sp2) 101.0 ml LVAs ap2 16.0 cm\S\2 LVLs ap2 6.8 cm ESV(MOD-sp2) 32.0 ml EF(MOD-sp2) 68.3 % SV(MOD-sp4) 41.0 ml SI(MOD-sp4) 20.9 ml/m\S\2 SV(MOD-sp2) 69.0 ml SI(MOD-sp2) 35.1 ml/m\S\2 Doppler Measurements and Calculations MV E max samantha 137.8 cm/sec MV A max samantha 76.1 cm/sec MV E/A 1.8 MV dec time 0.17 sec Ao V2 max 198.2 cm/sec Ao max PG 15.7 mmHg Ao max PG (full) 6.3 mmHg TEMI(V,A) 2.6 cm\S\2 TEMI(V,D) 2.6 cm\S\2 LV V1 max PG 9.4 mmHg LV V1 max 153.6 cm/sec PA V2 max 177.8 cm/sec PA max PG 12.7 mmHg TR max samantha 240.3 cm/sec
[2016-06-25] MEDS: VANCOMYCIN INJ 1,350 MG in SODIUM CHLORIDE 0.9% 250ML 250 ML IV SCH (15:17)
--- NOTE | 2016-06-25 16:45 | Medical Consult ---
Consultation Date of Consultation: Jun 25, 2016. Attending Physician: Isaias Ricks D.O. Reason for Consultation: hereditary spherocytosis, SIRS History of Present Illness 25-year-old male with known history of hereditary spherocytosis, with history of transfusions in the past, who is also status post cholecystectomy for gallstones several years ago, was in usual state of health until several days ago, when he became somewhat weaker in fatigue consistent with times when he became anemic. He then developed fever and shaking chills, and was brought to the hospital for further management. He has been started on broad-spectrum antibiotics with vancomycin, Zosyn, and levofloxacin. Cultures are negative to date. Patient currently complaining of sore throat, weakness and fatigue, slightly tender right cervical lymph node, mild cough, and now notes mid to distal esophageal discomfort while eating. No obvious ill contacts. Rapid influenza antigen testing has been negative, no obvious infiltrate on chest x- ray, read by me. Past Medical/Surgical History Medical Problems: (1) Anemia Status: Acute (2) Fever Status: Acute (3) Sepsis Status: Acute Medical Problems: (1) History of hemolytic anemia (2) History of hereditary spherocytosis (3) SIRS (systemic inflammatory response syndrome) Family History Noncontributory Social History Smoking Status: Never Smoker Smokeless Tobacco Use: No Alcohol Use: none Drug Use: none Marital Status: single Occupation Status: student Allergies Coded Allergies: No Known Allergies (Unverified , 06/25/16) Current Inpatient Medications Current Inpatient Medications Medications (Trade) Dose Ordered Sig/Juan Pablo Route Start Time Stop Time Status Last Admin Dose Admin Acetaminophen (Tylenol Tab) 650 mg Q4H PRN PO 06/25/16 02:45 07/25/16 02:44 06/25/16 04:48 650 MG Zolpidem Tartrate (Ambien Tab) 5 mg HSZ PRN PO 06/25/16 02:45 07/25/16 02:44 Folic Acid 800 mcg 800 mcg QAM PO 06/25/16 09:00 07/25/16 08:59 06/25/16 07:56 800 MCG Piperacillin Sod/ Tazobactam Sod 3.375 gm/Dextrose 115 ml @ 28 mls/hr Q8H IV 06/25/16 06:30 07/05/16 06:29 06/25/16 15:16 28 MLS/HR Methylprednisolone Sodium Succinate/ Syringe (Solu-Medrol IV/ Syringe) 0.96 ml @ 1.5 mls/min Q6H IV 06/25/16 04:30 07/25/16 04:29 06/25/16 15:20 1.5 MLS/MIN Ondansetron HCl 4 mg 4 mg Q6H PRN IV 06/25/16 03:00 07/25/16 02:59 Levofloxacin/Prmx (Levaquin / D5W/ Premixed D5W) 100 ml @ 100 mls/hr Q24H IV 06/25/16 08:00 07/05/16 07:59 06/25/16 09:51 100 MLS/HR Ipratropium [place] (Atrovent 0.02% 0.5MG/2.5ML Neb) 0.5 mg Q6R INH 06/25/16 09:00 07/25/16 08:59 06/25/16 07:12 0.5 MG Levalbuterol (Xopenex 1.25MG/ 0.5ML Neb) 1.25 mg Q6R INH 06/25/16 09:00 07/25/16 08:59 06/25/16 07:12 1.25 MG Ipratropium [place] (Atrovent 0.02% 0.5MG/2.5ML Neb) 0.5 mg Q2H PRN INH 06/25/16 03:15 07/25/16 03:14 Levalbuterol (Xopenex 1.25MG/ 0.5ML Neb) 1.25 mg Q2H PRN INH 06/25/16 03:15 07/25/16 03:14 Piperacillin Sod/ Tazobactam Sod (Consult) 1 ea UD PRN N/A 06/25/16 04:00 07/25/16 03:59 Vancomycin HCl 1 ea 1 ea UD PRN N/A 06/25/16 04:00 07/25/16 03:59 Vancomycin HCl/ Sodium Chloride (Vancomycin Inj/ Nss 250ml) 277 ml @ 125 mls/hr Q10H IV 06/25/16 14:30 07/05/16 14:29 06/25/16 15:17 125 MLS/HR Review of Systems Constitutional: + chills, + fatigue, + fever, + weakness Eyes: No problem reported ENT: + sore throat Respiratory: + cough, No hemoptysis Cardiovascular: No problem reported Abdomen: + problem reported ( dysphagia) Musculoskeletal: No problem reported Genitourinary - Male: No problem reported Neurologic: No problem reported Psychiatric: No problem reported Endocrine: No problem reported Hematologic / Lymphatic: No problem reported Integumentary: No problem reported Allergic / Immunologic: No problem reported Physical Exam Date Time Temp Pulse Resp B/P Pulse Ox O2 Delivery O2 Flow Rate FiO2 06/25/16 15:12 38.0 119 20 117/65 99 Room Air 06/25/16 12:28 36.9 98 16 105/64 97 Room Air 06/25/16 12:00 Room Air 06/25/16 08:00 Room Air 06/25/16 07:58 37.0 108 16 100/66 95 Room Air 06/25/16 07:12 95 20 99 Room Air 06/25/16 03:57 38.2 113 17 117/70 97 Room Air 06/25/16 03:37 117 98 06/25/16 03:07 119 06/25/16 02:21 121 23 96 06/25/16 02:16 124 22 96 06/25/16 02:11 127 21 96 06/25/16 02:01 126 23 96 06/25/16 01:58 106/52 06/25/16 01:56 125 19 98 06/25/16 01:51 130 23 98 06/25/16 01:46 39.5 06/25/16 01:46 135 22 97 06/25/16 01:42 127 20 112/57 96 Room Air 06/25/16 01:41 127 23 112/57 96 06/25/16 01:36 130 96 06/25/16 01:31 133 96 06/25/16 01:21 131 22 97 06/25/16 01:16 128 23 98 06/25/16 01:11 125 23 98 06/25/16 01:06 128 22 98 06/25/16 01:01 128 24 97 06/25/16 00:56 130 21 99 06/25/16 00:51 129 23 06/25/16 00:46 129 22 97 06/25/16 00:41 130 20 100 06/25/16 00:36 128 22 99 06/25/16 00:31 126 20 97 06/25/16 00:26 126 21 97 06/25/16 00:21 130 22 95 06/25/16 00:16 131 23 96 06/25/16 00:11 129 23 97 06/25/16 00:06 134 24 97 06/25/16 00:01 139 06/25/16 00:01 134 23 06/24/16 23:56 137 21 95 06/24/16 23:51 142 24 06/24/16 23:37 38.3 141 20 106/41 99 Room Air General Appearance: WD/WN, no apparent distress Head: normocephalic, atraumatic Eyes: PERRL, EOMI, + abnormal sclerae exam ( icteric) ENT: normal ENT inspection, hearing grossly normal, pharynx normal Neck: supple, thyroid normal, trachea midline, + adenopathy present Respiratory/Chest: chest non-tender, lungs clear, normal breath sounds, no respiratory distress Cardiovascular: regular rate, rhythm, no gallop, no murmur Abdomen/GI: normal bowel sounds, non tender, soft, no organomegaly Back: normal inspection, no CVA tenderness Extremities/Musculoskelatal: no calf tenderness, normal capillary refill, non- tender Neurologic/Psych: alert, normal mood/affect, oriented x 3 Skin: normal color, warm/dry, no rash Lymphatic: + cervical node abnormality Laboratory Results Date/Time Source Procedure Growth Status 06/25/16 01:00 Blood Blood Culture Pending Received 06/24/16 23:55 Blood Blood Culture Pending Received Last 24 Hours Test 06/25/16 00:10 06/25/16 01:00 06/25/16 03:45 06/25/16 09:10 Influenza Type A Antigen Neg for Influ A Influenza Type B Antigen Neg for Influ B White Blood Count 25.80 K/uL 19.79 K/uL Red Blood Count 2.53 M/uL 2.31 M/uL Hemoglobin 8.2 g/dL 7.5 g/dL Hematocrit 24.1 % 22.5 % Mean Corpuscular Volume 95.3 fL 97.4 fL Mean Corpuscular Hemoglobin 32.4 pg 32.5 pg Mean Corpuscular Hemoglobin Concent 34.0 g/dl 33.3 g/dl Platelet Count 212 K/uL 186 K/uL Mean Platelet Volume 10.2 fL 10.4 fL Neutrophils (%) (Auto) 74.7 % 90.8 % Lymphocytes (%) (Auto) 13.2 % 7.0 % Monocytes (%) (Auto) 11.1 % 1.8 % Eosinophils (%) (Auto) 0.2 % 0.0 % Basophils (%) (Auto) 0.2 % 0.1 % Neutrophils # (Auto) 19.31 K/uL 17.98 K/uL Lymphocytes # (Auto) 3.40 K/uL 1.39 K/uL Monocytes # (Auto) 2.86 K/uL 0.36 K/uL Eosinophils # (Auto) 0.04 K/uL 0.00 K/uL Basophils # (Auto) 0.04 K/uL 0.01 K/uL RDW Standard Deviation 68.3 fL 75.2 fL RDW Coefficient of Variation 20.4 % 21.5 % Immature Granulocyte % (Auto) 0.6 % 0.3 % Immature Granulocyte # (Auto) 0.15 K/uL 0.05 K/uL Nucleated RBC Absolute Count (auto) 0.21 K/uL 0.13 K/uL Nucleated Red Blood Cells % 0.8 % 0.7 % Toxic Vacuolation 1+ Polychromasia 3+ 3+ Anisocytosis PRESENT PRESENT Spherocytes 3+ 3+ Pappenheimer Bodies 3+ 1+ Mess[place] Bodies OCCASIONAL Sodium Level 134 mmol/L 138 mmol/L Potassium Level 3.4 mmol/L 3.5 mmol/L Chloride Level 102 mmol/L 105 mmol/L Carbon Dioxide Level 24 mmol/L 21 mmol/L Anion Gap 8.0 mmol/L 12.0 mmol/L Blood Urea Nitrogen 17 mg/dl 14 mg/dl Creatinine 1.00 mg/dl 0.99 mg/dl Est Creatinine Clear Calc Drug Dose 118.1 ml/min 119.3 ml/min Estimated GFR () 122.4 123.9 Estimated GFR (Non- 105.6 106.9 BUN/Creatinine Ratio 16.7 14.6 Random Glucose 110 mg/dl 198 mg/dl Lactic Acid Level 0.9 mmol/L Calcium Level 8.1 mg/dl 8.5 mg/dl Total Bilirubin 11.8 mg/dl Direct Bilirubin 1.8 mg/dl Aspartate Amino Transf (AST/SGOT) 57 U/L Alanine Aminotransferase (ALT/SGPT) 25 U/L Alkaline Phosphatase 59 U/L Total Creatine Kinase 42 U/L Creatine Kinase MB < 0.5 ng/ml Creatine Kinase MB Ratio C-Reactive Protein 7.83 mg/dl Total Protein 6.9 gm/dl Albumin 4.1 gm/dl Monoscreen NEG Troponin I < 0.015 ng/ml Test 06/25/16 14:45 06/25/16 14:52 Absolute Reticulocyte Count 0.41 10^6/uL Percent Reticulocyte Count 15.7 % Lactate Dehydrogenase 564 U/L CHEST ONE VIEW PORTABLE CLINICAL HISTORY: Fever and sepsis COMPARISON STUDY: 02/06/2015 FINDINGS: The cardiac and mediastinal contours are normal. There is no evidence of focal pulmonary consolidation. There is no evidence of failure. No pleural effusions are visualized.[ IMPRESSION: No active disease in the chest. Electronically signed by: Zachariah Messina M.D. 06/25/2016 6:38 AM Dictated Date/Time: 06/25/2016 6:38 AM The status of this report is Signed. Draft = Not yet reviewed or approved by Radiologist. Signed Assessment & Plan 25-year-old male with hereditary spherocytosis now febrile illness with worsening anemia. Given the prevalence of influenza in the community, and worried about the possibility of influenza infection. I have ordered additional testing with PCR given problems with antigen testing during this outbreak. For now, agree that patient should be continued on broad-spectrum antibiotics pending further culture results. Given new onset dysphagia, may want to consider possible endoscopy if fever and symptoms persist. Will follow.
[2016-06-25 16:55] LABS: INFLUENZA A PCR Neg for Influ A (NEG); INFLUENZA B PCR Neg for Influ B (NEG)
--- NOTE | 2016-06-25 18:58 | Progress Note ---
Progress Note seen in f/u from early AM admission generally feels OK - just notes that sore throat is progressing, cough ongoing, no focal chest pain, breathing feeling a little more labored but still not truly dyspnic. ongoing fevers but not really feeling all that much. guessed his bili would be around 11, notes he always runs 7-8. notes hasn't needed transfused in a while. technical marketing consultant input noted, appreciated vitals noted, nad, breathing unlabored, lungs coarse but cta b/l no focal findings. neck supple but ongoing adenopathy febrile illness - abx per ID pending further cx, agree w repeat flu testing, ongoing supportive care. hemolytic anemia w hereditary spherocytosis - asymptomatic from anemia standpoint - continue to follow, transfuse if needed but right now need not apparent abnormal EKG - echo and enzymes reassuring. stable for transfer to med/surg DVT proph - ambulation
[2016-06-26 00:05] VITALS: O2SAT 95
[2016-06-26] MEDS: VANCOMYCIN INJ 1,350 MG in SODIUM CHLORIDE 0.9% 250ML 250 ML IV SCH ×4 (00:30→21:13)
[2016-06-26] MEDS: IPRATROPIUM BROMIDE NEB SOLN 0.02% 2.5 ML VIAL INH SCH ×2 (02:31→07:13)
[2016-06-26] MEDS: LEVALBUTEROL 1.25MG/0.5ML NEB INH SCH ×2 (02:31→07:13)
[2016-06-26] MEDS: METHYLPREDNISOLONE IV 60 MG in SYRINGE 0 ML IV SCH ×2 (04:16→10:34)
[2016-06-26] MEDS ORDERED: NURSING VERBAL MED ORDER ONE (05:00)
[2016-06-26] MEDS: CALCIUM CARBONATE 500 MG CHEWABLE PO PRN (05:52)
[2016-06-26] MEDS: PIPERACILL/TAZOBAC IV 3.375 GM in DEXTROSE 5% 100ML 100 ML IV SCH ×3 (05:53→23:38)
[2016-06-26 07:15] VITALS: PULSE 83; O2SAT 97
[2016-06-26 08:04] LABS: BASO % 0.1 %; BASO ABS # 0.02 K/uL (0-0.2); HEMATOCRIT 26.4 % (42-52); IG% 0.3 %; LYMPH % 3.3 %; LYMPH ABS # 0.59 K/uL (1.2-3.4); MEAN CELL VOLUME 96.4 fL (80-100); MEAN CORPUSCULAR HEMOGLOBIN 32.1 pg (25-34); MEAN CORPUSCULAR HGB CONC 33.3 g/dl (32-36); MEAN PLATELET VOLUME 9.9 fL (7.4-10.4); MONO % 7.6 %; NEUT % 88.7 %; PLATELET COUNT 202 K/uL (130-400); RED BLOOD COUNT 2.74 M/uL (4.7-6.1); WHITE BLOOD COUNT 17.78 K/uL (4.8-10.8)
[2016-06-26 08:13] VITALS: BP 113/70; PULSE 83; TEMP 36.7; O2SAT 97
[2016-06-26 08:26] LABS: C-REACTIVE PROTEIN 4.88 mg/dl (0-0.29); CREATININE 0.8 mg/dl (0.60-1.40)
[2016-06-26 08:28] LABS: ANISOCYTOSIS PRESENT; COMPLETE YES; POLYCHROMASIA 3+; SPHEROCYTE 3+
[2016-06-26] MEDS: PANTOprazole SOD 40 MG TAB PO SCH (09:45)
[2016-06-26] MEDS: FoLIC ACID TAB 400 MCG TAB PO SCH (09:45)
[2016-06-26] MEDS ORDERED: VANCOMYCIN TROUGH SCH (10:00)
[2016-06-26] MEDS: LEVOFLOXACIN / D5W 500 MG in PREMIXED IN D5W 100 ML IV SCH (10:37)
--- NOTE | 2016-06-26 11:06 | Hematology/Oncology Prog Note ---
Hematology/Onc Progress Note Date of Service Jun 26, 2016. Diagnoses Febrile illness Hereditary spherocytosis Medications Medications Administered Medications (Trade) Dose Ordered Sig/Juan Pablo Route Start Time Stop Time Status Last Admin Dose Admin Sodium Chloride (Nss 1000ml) 1,000 ml @ 999 mls/hr Q1H1M STAT IV 06/24/16 23:57 06/25/16 00:57 DC 06/25/16 00:15 999 MLS/HR Ceftriaxone Sodium (Rocephin Inj) 1 gm NOW STAT IV 06/24/16 23:57 06/25/16 00:00 DC 06/25/16 00:59 1 GM Ibuprofen (Advil Tab) 200 mg STK-MED ONCE .ROUTE 06/25/16 01:49 06/25/16 01:50 DC 06/25/16 01:53 200 MG Ibuprofen 600 mg 600 mg STK-MED ONCE .ROUTE 06/25/16 01:49 06/25/16 01:50 DC 06/25/16 01:53 600 MG Piperacillin Sod/ Tazobactam Sod/ Dextrose (Zosyn Iv/D5 100ml) 115 ml @ 230 mls/hr NOW STAT IV 06/25/16 02:08 06/25/16 02:37 DC 06/25/16 02:22 230 MLS/HR Acetaminophen (Tylenol Tab) 650 mg Q4H PRN PO 06/25/16 02:45 07/25/16 02:44 06/25/16 04:48 650 MG Folic Acid 800 mcg 800 mcg QAM PO 06/25/16 09:00 07/25/16 08:59 06/26/16 09:45 800 MCG Piperacillin Sod/ Tazobactam Sod 3.375 gm/Dextrose 115 ml @ 28 mls/hr Q8H IV 06/25/16 06:30 07/05/16 06:29 06/26/16 05:53 28 MLS/HR Methylprednisolone Sodium Succinate 60 mg/Syringe 0.96 ml @ 1.5 mls/min Q6H IV 06/25/16 04:30 07/25/16 04:29 06/26/16 10:34 1.5 MLS/MIN Levofloxacin/Prmx (Levaquin / D5W/ Premixed D5W) 100 ml @ 100 mls/hr Q24H IV 06/25/16 08:00 07/05/16 07:59 06/26/16 10:37 100 MLS/HR Ipratropium [place] (Atrovent 0.02% 0.5MG/2.5ML Neb) 0.5 mg Q6R INH 06/25/16 09:00 06/26/16 08:49 DC 06/25/16 19:54 0.5 MG Levalbuterol 1.25 mg 1.25 mg Q6R INH 06/25/16 09:00 06/26/16 08:50 DC 06/25/16 19:55 1.25 MG Vancomycin HCl 2200 mg/Sodium Chloride 544 ml @ 200 mls/hr TODAY@0400 IV 06/25/16 04:00 06/25/16 06:44 DC 06/25/16 04:34 200 MLS/HR Vancomycin HCl/ Sodium Chloride (Vancomycin Inj/ Nss 250ml) 277 ml @ 125 mls/hr Q10H IV 06/25/16 14:30 07/05/16 14:29 06/26/16 10:33 125 MLS/HR Calcium Carbonate (Tums Chew Tab) 1-2 TABS Q4H PRN PO 06/26/16 05:00 07/26/16 04:59 06/26/16 05:52 1,000 MG Pantoprazole Sodium (Protonix Tab) 40 mg QAM PO 06/26/16 08:00 07/26/16 07:59 06/26/16 09:45 40 MG Subjective Mr. Brumfield feels better today. He is afebrile and his energy is improving. His urine has also been greenskeeper head, though in part due to aggressive hydration. Review of Systems: Constitutional: No chills, No fever, No sweats Eyes: No worsening of vision ENT: No unusual epistaxis Respiratory: No cough, No shortness of breath Cardiovascular: No chest pain Abdomen: No nausea, No pain, No vomiting Musculoskeletal: No joint pain, No muscle pain Male : No dysuria Neurologic: No numbness/tingling, No weakness Heme: No abnormal bleeding/bruising Skin: No rash Vital Signs Vital Signs Past 12 Hours Date Time Temp Pulse Resp B/P Pulse Ox O2 Delivery O2 Flow Rate FiO2 06/26/16 08:13 36.7 83 18 113/70 97 Room Air 06/26/16 07:15 83 14 97 Room Air 06/26/16 00:05 95 Room Air 06/25/16 23:18 36.9 98 20 73/44 99 Room Air Physical Exam Constitutional: General Apperance: heathly-appearing Level of Distress: NAD Psychiatric: Mental Status: active & alert Orientation: oriented except where noted Eyes: EOM: EOMI Lungs: Auscuitation: CTA except as noted Cardiovascular: Heart Auscultation: RRR Abdomen: Inspection & Palpation: soft, no tenderness, guarding & rebound Extremities: no edema Neurologic: Cranial Nerves: grossly intact Laboratory Last 24 Hours Test 06/25/16 14:45 06/25/16 14:52 06/26/16 07:20 06/26/16 10:24 Influenza Type A (RT-PCR) Neg for Influ A Influenza Type B (RT-PCR) Neg for Influ B Absolute Reticulocyte Count 0.41 10^6/uL Percent Reticulocyte Count 15.7 % Lactate Dehydrogenase 564 U/L White Blood Count 17.78 K/uL Red Blood Count 2.74 M/uL Hemoglobin 8.8 g/dL Hematocrit 26.4 % Mean Corpuscular Volume 96.4 fL Mean Corpuscular Hemoglobin 32.1 pg Mean Corpuscular Hemoglobin Concent 33.3 g/dl Platelet Count 202 K/uL Mean Platelet Volume 9.9 fL Neutrophils (%) (Auto) 88.7 % Lymphocytes (%) (Auto) 3.3 % Monocytes (%) (Auto) 7.6 % Eosinophils (%) (Auto) 0.0 % Basophils (%) (Auto) 0.1 % Neutrophils # (Auto) 15.77 K/uL Lymphocytes # (Auto) 0.59 K/uL Monocytes # (Auto) 1.35 K/uL Eosinophils # (Auto) 0.00 K/uL Basophils # (Auto) 0.02 K/uL RDW Standard Deviation 67.8 fL RDW Coefficient of Variation 19.8 % Immature Granulocyte % (Auto) 0.3 % Immature Granulocyte # (Auto) 0.05 K/uL Nucleated RBC Absolute Count (auto) 0.21 K/uL Nucleated Red Blood Cells % 1.2 % Polychromasia 3+ Anisocytosis PRESENT Spherocytes 3+ Creatinine 0.80 mg/dl Est Creatinine Clear Calc Drug Dose 145.5 ml/min Estimated GFR () 145.9 Estimated GFR (Non- 125.9 C-Reactive Protein 4.88 mg/dl Assessment & Plan Mr. Brumfield has a history of hereditary spherocytosis. He was admitted with a febrile illness and was noted to have a hemoglobin of 7.5. It is up today to 8.8 without transfusion. This likely reflects improvement of his acute inflammatory state. His ROSARIO was negative, so he does not have a red cell antibody. His acute decline in his hemoglobin likely was attributable to stress related to his infection. His hemoglobin should continue to improve as his inflammation subsides and his marrow has time to produce new RBCs. We can see him in clinic in about a month or so, as he does not have a lsat instructor that he follows with regularly.
--- NOTE | 2016-06-26 12:03 | Pharmacy Progress Note ---
Pharmacy Antibiotic Prog Note Date of Service: Jun 26, 2016. Subjective: The patient is currently receiving Vancomycin 1350 mg IV every 10 hours. The patient is currently on day # 2 of Vancomycin IV therapy. Objective: Height (Feet): 5 Height (Inches): 5.00 Weight (Kilograms): 86.800 Levels: Item Value Date Time Vancomycin Level Trough 7.4 mcg/ml 06/26/16 1024 Lab Results (24hrs): Laboratory Tests Test 06/26/16 07:20 Creatinine 0.80 mg/dl White Blood Count 17.78 K/uL Red Blood Count 2.74 M/uL Hemoglobin 8.8 g/dL Hematocrit 26.4 % Mean Corpuscular Volume 96.4 fL Mean Corpuscular Hemoglobin 32.1 pg Mean Corpuscular Hemoglobin Concent 33.3 g/dl Platelet Count 202 K/uL Mean Platelet Volume 9.9 fL Neutrophils (%) (Auto) 88.7 % Lymphocytes (%) (Auto) 3.3 % Monocytes (%) (Auto) 7.6 % Eosinophils (%) (Auto) 0.0 % Basophils (%) (Auto) 0.1 % Neutrophils # (Auto) 15.77 K/uL Lymphocytes # (Auto) 0.59 K/uL Monocytes # (Auto) 1.35 K/uL Eosinophils # (Auto) 0.00 K/uL Basophils # (Auto) 0.02 K/uL Micro Results: Item Value Date Time Group A Streptococcus Screen - Preliminary Resulted 06/24/16 0000 Throat Blood Culture - Preliminary Resulted 06/24/16 2355 Blood NO GROWTH TO DATE. Blood Culture - Preliminary Resulted 06/25/16 0100 Blood NO GROWTH TO DATE. Assessment & Plan: Assessment * 25 y/o M with unknown febrile illness, SIRS on empiric IV Vancomycin, Zosyn, and Levaquin (not a consult). ID is also following the patient. Cultures show no growth to date. * Goal Vancomycin trough ~15 mcg/mL * Trough level on 06/26 @ 1024 (appropriately drawn) of 7.4 mcg/mL is subtherapeutic. Due to patient's young age without any renal impairment, he is clearing the drug rapidly. Will need to decrease dosing interval to target a higher trough. Plan * Increase Vancomycin to 1350mg (~15mg/kg) IV q6 * Recheck trough level on 06/27 @ 0930 (prior to the 4th dose and therefore should be reflective of steady state) Pharmacy will continue to follow and will adjust dose/frequency as necessary. Thank you
[2016-06-26] MEDS: IPRATROPIUM BROMIDE HFA INHALER INH SCH ×2 (12:24→19:07)
[2016-06-26] MEDS: LEValbuterol HFA 15GM INHALER INH SCH ×2 (12:25→19:07)
--- NOTE | 2016-06-26 15:37 | Progress Note ---
Subjective Date of Service: Jun 26, 2016. Subjective Pt evaluation today including: conversation w/ patient, conversation w/ family , physical exam, chart review, lab review, conversation w/ business system consultant, review of inpatient medication list feeling better overall. last true fever yesterday. sore throat, cough, breathing all feeling better. notes new (or progressed from yesterday) is chest tightness substernal after eating "like when you swallow an ice cube and it gets stuck" although not constant, is somewhat positional. no nausea/ vomiting, no regurgitation. denies lightheaded. "i don't have any anemia symptoms at all" Problem List Medical Problems: (1) Anemia Status: Acute (2) Fever Status: Acute (3) Sepsis Status: Acute Review of Systems Constitutional: No fever ENT: + sore throat (improving) Respiratory: + shortness of breath (improving) Abdomen: + see HPI ros otherwise negative except for as above Objective Vital Signs Date Time Temp Pulse Resp B/P Pulse Ox O2 Delivery O2 Flow Rate FiO2 06/26/16 08:13 36.7 83 18 113/70 97 Room Air 06/26/16 08:00 Room Air 06/26/16 07:15 83 14 97 Room Air 06/26/16 00:05 95 Room Air 06/25/16 23:18 36.9 98 20 73/44 99 Room Air 06/25/16 20:10 37.9 95 20 98 06/25/16 20:00 98 Room Air 06/25/16 19:55 95 20 98 Room Air 06/25/16 19:16 37.9 119 18 119/64 98 Room Air 06/25/16 16:00 Room Air Physical Exam General Appearance: no apparent distress Eyes: EOMI ENT: hearing grossly normal, + pertinent finding (no white plaques on tongue/ roof of mouth/palate/oropharynx) Neck: trachea midline Respiratory/Chest: lungs clear, normal breath sounds, no respiratory distress, no accessory muscle use Cardiovascular: regular rate, rhythm Abdomen: non tender, soft Extremities: normal range of motion Neurologic/Psychiatric: assembler latches and springs II-XII nml as tested, alert Skin: normal color, warm/dry Laboratory Results Last 24 Hours Test 06/26/16 07:20 06/26/16 10:24 White Blood Count 17.78 K/uL Red Blood Count 2.74 M/uL Hemoglobin 8.8 g/dL Hematocrit 26.4 % Mean Corpuscular Volume 96.4 fL Mean Corpuscular Hemoglobin 32.1 pg Mean Corpuscular Hemoglobin Concent 33.3 g/dl Platelet Count 202 K/uL Mean Platelet Volume 9.9 fL Neutrophils (%) (Auto) 88.7 % Lymphocytes (%) (Auto) 3.3 % Monocytes (%) (Auto) 7.6 % Eosinophils (%) (Auto) 0.0 % Basophils (%) (Auto) 0.1 % Neutrophils # (Auto) 15.77 K/uL Lymphocytes # (Auto) 0.59 K/uL Monocytes # (Auto) 1.35 K/uL Eosinophils # (Auto) 0.00 K/uL Basophils # (Auto) 0.02 K/uL RDW Standard Deviation 67.8 fL RDW Coefficient of Variation 19.8 % Immature Granulocyte % (Auto) 0.3 % Immature Granulocyte # (Auto) 0.05 K/uL Nucleated RBC Absolute Count (auto) 0.21 K/uL Nucleated Red Blood Cells % 1.2 % Polychromasia 3+ Anisocytosis PRESENT Spherocytes 3+ Creatinine 0.80 mg/dl Est Creatinine Clear Calc Drug Dose 145.5 ml/min Estimated GFR () 145.9 Estimated GFR (Non- 125.9 C-Reactive Protein 4.88 mg/dl Procalcitonin 1.41 ng/mL Vancomycin Level Trough 7.4 mcg/ml Assessment and Plan hemolytic anemia w chronic spherocytosis -appearing due to metabolic stressors from febrile illness provoking hemolysis w spherocytosis -Hgb stable, high retic. continue to follow CBC but appearing much more stable -outpt f/u heme/onc -stop steroids febrile illness -likely non-flu viral. empiric abx as per ID for now, but consider dc if nothing further showing on cultures, focal findings on exam chest discomfort/pain after swallowing -does sound esophageal; no thrush visible so doubt esophageal drake. probably acute indigestion from febrile illness / acute indigestion mediated esophagitis and/or spasm. follow. since febrile illness improving, would anticipate improvement in this as well - if it doesn't improve shortly after febrile illness resolves, then would need to consider EGD leukocytosis -continue to follow DVT proph -ambulation
[2016-06-26 15:44] VITALS: BP 128/73; PULSE 91; TEMP 36.7; O2SAT 98
[2016-06-26] MEDS ORDERED: ALUMINUM/MAGNESIUM SUSP 30 ML UDC PO STA (18:06)
[2016-06-26] MEDS ORDERED: FAMOTIDINE 20 MG TAB PO ONE (18:15)
[2016-06-26] MEDS ORDERED: LIDOCAINE HCL 2% VISC SOLN 20 ML UDC PO ONE (18:15)
[2016-06-26] MEDS ORDERED: ALUMINUM/MAGNESIUM SUSP 30 ML UDC ONE (21:05)
[2016-06-26 23:32] VITALS: BP 104/64; PULSE 88; TEMP 36.9; O2SAT 96
[2016-06-27] MEDS: IPRATROPIUM BROMIDE HFA INHALER INH SCH ×4 (00:53→17:39)
[2016-06-27] MEDS: LEValbuterol HFA 15GM INHALER INH SCH ×4 (00:53→17:39)
[2016-06-27] MEDS: VANCOMYCIN INJ 1,350 MG in SODIUM CHLORIDE 0.9% 250ML 250 ML IV SCH ×2 (04:05→10:55)
[2016-06-27] MEDS: PIPERACILL/TAZOBAC IV 3.375 GM in DEXTROSE 5% 100ML 100 ML IV SCH (06:22)
[2016-06-27 06:44] LABS: BASO % 0.2 %; BASO ABS # 0.03 K/uL (0-0.2); EOS % 0.1 %; HEMATOCRIT 25.4 % (42-52); IG% 0.3 %; LYMPH ABS # 2.48 K/uL (1.2-3.4); MEAN CELL VOLUME 97.3 fL (80-100); MEAN CORPUSCULAR HEMOGLOBIN 31.8 pg (25-34); MEAN CORPUSCULAR HGB CONC 32.7 g/dl (32-36); MEAN PLATELET VOLUME 10.3 fL (7.4-10.4); MONO % 15.8 %; NEUT % 67.6 %; PLATELET COUNT 205 K/uL (130-400); RED BLOOD COUNT 2.61 M/uL (4.7-6.1); WHITE BLOOD COUNT 15.54 K/uL (4.8-10.8)
[2016-06-27 07:13] LABS: BUN/CREATININE RATIO 12.6 (10-20); CALCIUM 8.6 mg/dl (8.5-10.1); CREATININE 0.89 mg/dl (0.60-1.40); POTASSIUM 3.6 mmol/L (3.5-5.1)
[2016-06-27 07:19] LABS: ANISOCYTOSIS PRESENT; COMPLETE YES; POLYCHROMASIA 2+; SPHEROCYTE 3+
[2016-06-27 07:23] LABS: ALB/GLOB RATIO 1.2 (0.9-2)
[2016-06-27 07:56] VITALS: BP 108/64; PULSE 96; TEMP 36.9; O2SAT 98
[2016-06-27] MEDS: FoLIC ACID TAB 400 MCG TAB PO SCH (08:00)
[2016-06-27] MEDS: PANTOprazole SOD 40 MG TAB PO SCH ×2 (08:00→20:29)
--- NOTE | 2016-06-27 08:42 | HEME/ONC PROGRESS NOTE ---
DATE: 06/27/2016 DIAGNOSES: 1. Viral syndrome. 2. Low grade fever. 3. Hereditary spherocytosis. HISTORY OF PRESENT ILLNESS: Brando is a pleasant 25-year-old gentleman who was admitted over the weekend with fever of unknown origin. He has been byrd cultured all which been negative thus far. He is feeling better; however, today he complains of midsternal chest pain. He states that initially he experienced some dysphagia with water but now he is complaining of difficulty with solids and breads per se. According to him, there is no history of diffuse esophageal spasm or cardiac history. Primary team I believe is considering a GI consultation if symptoms do not resolve. PHYSICAL EXAMINATION: GENERAL: He is in no acute distress. VITAL SIGNS: Temperature 36.9, pulse 96, respiratory rate 18, blood pressure 108/64. SKIN: Without rash or lesion. HEENT: Buccal mucosa without erythema or ulceration. NECK: Supple. HEART: Regular rate and rhythm. No clicks, rubs or murmurs. LUNGS: Clear to auscultation bilaterally. ABDOMEN: Soft, nontender, nondistended. EXTREMITIES: No clubbing, cyanosis or edema. NEUROLOGIC: Grossly intact. LABORATORY DATA: WBC count 15,500, hemoglobin 8.3, platelet count 205,000. Sodium 141, potassium 3.6, chloride 107, CO2 of 24, creatinine 0.89, BUN 11. Total bilirubin elevated at 3.4. ASSESSMENT AND PLAN: 1. Viral syndrome. 2. Atypical chest pain. Consider diffuse esophageal spasm. 3. Hereditary spherocytosis. PLAN: I met with Brando and his mother at bedside today. From the standpoint of viral syndrome, he is feeling better and fever has subsided. He continues to complain of substernal chest pain related to dysphagia. His symptoms could be attributable to diffuse esophageal spasm and perhaps a trial of p.r.n. nitroglycerin to see if he gets some relief. I would also consider a GI consult at some point. His hemoglobin does not seem to be worsening at this time. We will continue to follow periodically during his hospital stay. More importantly, will make arrangements to connect with hematology once discharged. Thank you for allowing us to care for this pleasant gentleman. [facility] HOSPITALVladislav
[2016-06-27] MEDS ORDERED: VANCOMYCIN TROUGH ONE (09:30)
[2016-06-27] MEDS: LEVOFLOXACIN / D5W 500 MG in PREMIXED IN D5W 100 ML IV SCH (10:51)
--- NOTE | 2016-06-27 13:46 | Pharmacy Progress Note ---
Pharmacy Antibiotic Prog Note Date of Service: Jun 27, 2016. Subjective: The patient is currently receiving Vancomycin 1350mg IV every 6 hours. The patient is currently on day # 3 of Vancomycin IV therapy. Objective: Height (Feet): 5 Height (Inches): 5.00 Weight (Kilograms): 86.700 Levels: Item Value Date Time Vancomycin Level Trough 22.0 mcg/ml 06/27/16 0940 Lab Results (24hrs): Laboratory Tests Test 06/27/16 06:20 BUN/Creatinine Ratio 12.6 Blood Urea Nitrogen 11 mg/dl Creatinine 0.89 mg/dl White Blood Count 15.54 K/uL Red Blood Count 2.61 M/uL Hemoglobin 8.3 g/dL Hematocrit 25.4 % Mean Corpuscular Volume 97.3 fL Mean Corpuscular Hemoglobin 31.8 pg Mean Corpuscular Hemoglobin Concent 32.7 g/dl Platelet Count 205 K/uL Mean Platelet Volume 10.3 fL Neutrophils (%) (Auto) 67.6 % Lymphocytes (%) (Auto) 16.0 % Monocytes (%) (Auto) 15.8 % Eosinophils (%) (Auto) 0.1 % Basophils (%) (Auto) 0.2 % Neutrophils # (Auto) 10.53 K/uL Lymphocytes # (Auto) 2.48 K/uL Monocytes # (Auto) 2.45 K/uL Eosinophils # (Auto) 0.01 K/uL Basophils # (Auto) 0.03 K/uL Micro Results: Item Value Date Time Blood Culture - Preliminary Resulted 06/25/16 0100 Blood NO GROWTH TO DATE. Blood Culture - Preliminary Resulted 06/24/16 2355 Blood NO GROWTH TO DATE. Recent Pertinent Medications: Item Value Date Time Piperacillin Sod/ 115 ml @ 28 mls/hr 06/25/16 0630 Tazobactam Sod Q8H/IV 06/27/16 0622 3.375 gm/Dextrose Levofloxacin 500 100 ml @ 100 mls/hr 06/25/16 0800 mg/Prmx Q24H/IV 06/27/16 1051 Assessment & Plan: This drug level is: Supratherapeutic. After being subtherapeutic, patient was changed to every 6 hour frequency, current trough is a little high and given patient has achieved steady state at this point I will reduce frequency. Will change to Vancomycin 1350mg (~15mg/kg) every 8 hours and check another trough level prior to 0400 dose on 06/29/16 Goal trough level estimate: between 15-20 mcg/mL. Pharmacy will continue to follow and will adjust dose/frequency as necessary. Thank you
--- NOTE | 2016-06-27 14:29 | Infectious Disease Progress Nt ---
Progress Note Date of Service Jun 27, 2016. Subjective Pt evaluation today including: conversation w/ patient, conversation w/ family , physical exam, chart review, lab review, review of studies, conversation w/ health care consultant, review of inpatient medication list Only major complaint is dysphagia, otherwise feeling better. Has been afebrile. Cultures negative to date. No new significant serologic findings. All Other Systems: Reviewed and Negative Medications Current Inpatient Medications Medications (Trade) Dose Ordered Sig/Juan Pablo Route Start Time Stop Time Status Last Admin Dose Admin Acetaminophen (Tylenol Tab) 650 mg Q4H PRN PO 06/25/16 02:45 07/25/16 02:44 06/25/16 04:48 650 MG Zolpidem Tartrate (Ambien Tab) 5 mg HSZ PRN PO 06/25/16 02:45 07/25/16 02:44 Folic Acid (Folvite Tab) 800 mcg QAM PO 06/25/16 09:00 07/25/16 08:59 06/27/16 08:00 800 MCG Ondansetron HCl (Zofran Inj) 4 mg Q6H PRN IV 06/25/16 03:00 07/25/16 02:59 Vancomycin HCl (Consult) 1 ea UD PRN N/A 06/25/16 04:00 07/25/16 03:59 Calcium Carbonate (Tums Chew Tab) 1-2 TABS Q4H PRN PO 06/26/16 05:00 07/26/16 04:59 06/26/16 05:52 1,000 MG Ipratropium [place] (Atrovent Hfa Inhaler) 2 puffs Q6 INH 06/26/16 12:00 07/26/16 11:59 06/27/16 12:20 2 PUFFS Levalbuterol 2 puffs 2 puffs Q6 INH 06/26/16 12:00 07/26/16 11:59 06/27/16 12:20 2 PUFFS Vancomycin HCl/ Sodium Chloride (Vancomycin Inj/ Nss 250ml) 277 ml @ 125 mls/hr Q6H IV 06/26/16 16:00 06/27/16 12:00 06/27/16 10:55 125 MLS/HR Pantoprazole Sodium (Protonix Tab) 40 mg BID PO 06/27/16 20:00 07/27/16 19:59 UNV Objective Vital Signs Date Time Temp Pulse Resp B/P Pulse Ox O2 Delivery O2 Flow Rate FiO2 06/27/16 08:00 Room Air 06/27/16 07:56 36.9 96 18 108/64 98 Room Air 06/27/16 00:05 Room Air 06/26/16 23:32 36.9 88 18 104/64 96 Room Air 06/26/16 21:58 Room Air 06/26/16 16:00 Room Air 06/26/16 15:44 36.7 91 18 128/73 98 Room Air Physical Exam General Appearance: WD/WN, no apparent distress Eyes: normal inspection, EOMI, sclerae normal ENT: normal ENT inspection, pharynx normal Neck: supple, no adenopathy, trachea midline Respiratory/Chest: lungs clear, normal breath sounds, no respiratory distress Cardiovascular: regular rate, rhythm, no gallop, no murmur Abdomen: normal bowel sounds, non tender, soft, no organomegaly Extremities: non-tender, no calf tenderness Neurologic/Psychiatric: alert, oriented x 3 Skin: normal color, warm/dry, no rash Lymphatic: no adenopathy Laboratory Results RUN DATE: 06/26/16 [facility] LAB PAGE 1 RUN TIME: 0804 Specimen Inquiry PATIENT: ASAEL NIETO LOC: [id number] U # : [id number] AGE/SX: 25/M ROOM: [facility] REG : 06/25/[address]: Isaias Ricks D.O. : 1990 BED: 2 DIS : STATUS: ADM IN TLOC: SPEC #: [id number] EMILIA: 06/25/16 STATUS: RES REQ #: [id number] RECD: 06/25/[address]: Jeffrey Steiner D.O. SOURCE: BLOOD ENTR: 06/25/16-[address]: Maira West, Assigned [facility]: ORDERED: BLOOD CULTURE COMMENTS: Comments to Systems Checkout Mechanic SAME TIME DIFFERENT SITES Procedure Result Verified Site BLD CULT Preliminary 06/26/16 NO GROWTH TO DATE. Last 24 Hours Test 06/27/16 06:20 06/27/16 09:40 White Blood Count 15.54 K/uL Red Blood Count 2.61 M/uL Hemoglobin 8.3 g/dL Hematocrit 25.4 % Mean Corpuscular Volume 97.3 fL Mean Corpuscular Hemoglobin 31.8 pg Mean Corpuscular Hemoglobin Concent 32.7 g/dl Platelet Count 205 K/uL Mean Platelet Volume 10.3 fL Neutrophils (%) (Auto) 67.6 % Lymphocytes (%) (Auto) 16.0 % Monocytes (%) (Auto) 15.8 % Eosinophils (%) (Auto) 0.1 % Basophils (%) (Auto) 0.2 % Neutrophils # (Auto) 10.53 K/uL Lymphocytes # (Auto) 2.48 K/uL Monocytes # (Auto) 2.45 K/uL Eosinophils # (Auto) 0.01 K/uL Basophils # (Auto) 0.03 K/uL RDW Standard Deviation 66.2 fL RDW Coefficient of Variation 19.3 % Immature Granulocyte % (Auto) 0.3 % Immature Granulocyte # (Auto) 0.04 K/uL Nucleated RBC Absolute Count (auto) 0.16 K/uL Nucleated Red Blood Cells % 1.1 % Polychromasia 2+ Basophilic Stippling 1+ Anisocytosis PRESENT Spherocytes 3+ Sodium Level 141 mmol/L Potassium Level 3.6 mmol/L Chloride Level 107 mmol/L Carbon Dioxide Level 24 mmol/L Anion Gap 10.0 mmol/L Blood Urea Nitrogen 11 mg/dl Creatinine 0.89 mg/dl Est Creatinine Clear Calc Drug Dose 130.7 ml/min Estimated GFR () 139.7 Estimated GFR (Non- 120.5 BUN/Creatinine Ratio 12.6 Random Glucose 89 mg/dl Calcium Level 8.6 mg/dl Total Bilirubin 3.4 mg/dl Aspartate Amino Transf (AST/SGOT) 18 U/L Alanine Aminotransferase (ALT/SGPT) 22 U/L Alkaline Phosphatase 45 U/L Total Protein 6.5 gm/dl Albumin 3.5 gm/dl Globulin 3.0 gm/dl Albumin/Globulin Ratio 1.2 Vancomycin Level Trough 22.0 mcg/ml Assessment and Plan 25-year-old male with hereditary spherocytosis now febrile illness with worsening anemia. Appears viral in nature, blood cultures remain negative. Continues with odynophagia, and would consider GI consult and possible endoscopy if persists. Would consider discontinuation of vancomycin if cultures remain negative.
[2016-06-27] MEDS ORDERED: SUCRALFATE 1 GM/10 ML UDC PO ONE (15:37)
--- NOTE | 2016-06-27 15:43 | Family Medicine Progress Note ---
Progress Note Date of Service Jun 27, 2016. Subjective Pt evaluation today including: conversation w/ patient, physical exam, chart review, lab review Pain: epigastric pain Voiding: no voiding problems Patient is being afebrile overnight. He continues to complains of epigastric pain with every time he eats. It's been going on for 1 week now. He thinks it's progressively getting worse. He was nauseated yesterday night but didn't vomit. Not nauseated anymore. He does have hx of acid reflux but denies taking anything for it. He states last bowel movement he had on Monday. Denies headache, SOB, chest pain, nausea, vomiting, constipation, diarrhea, dysuria, or any other additional symptoms. Constitutional: No chills, No fever Respiratory: No cough, No shortness of breath, No sputum, No wheezing Cardiovascular: No chest pain, No edema Abdomen: + pain (epigastric pain with food), No constipation, No diarrhea, No nausea, No vomiting Musculoskeletal: No muscle pain Male : No dysuria Skin: No rash Medications Current Inpatient Medications Medications (Trade) Dose Ordered Sig/Juan Pablo Route Start Time Stop Time Status Last Admin Dose Admin Acetaminophen (Tylenol Tab) 650 mg Q4H PRN PO 06/25/16 02:45 07/25/16 02:44 06/25/16 04:48 650 MG Zolpidem Tartrate (Ambien Tab) 5 mg HSZ PRN PO 06/25/16 02:45 07/25/16 02:44 Folic Acid (Folvite Tab) 800 mcg QAM PO 06/25/16 09:00 07/25/16 08:59 06/27/16 08:00 800 MCG Ondansetron HCl (Zofran Inj) 4 mg Q6H PRN IV 06/25/16 03:00 07/25/16 02:59 Calcium Carbonate (Tums Chew Tab) 1-2 TABS Q4H PRN PO 06/26/16 05:00 07/26/16 04:59 06/26/16 05:52 1,000 MG Ipratropium Canones (Atrovent Hfa Inhaler) 2 puffs Q6 INH 06/26/16 12:00 07/26/16 11:59 06/27/16 12:20 2 PUFFS Levalbuterol (Xopenex Hfa Inhaler) 2 puffs Q6 INH 06/26/16 12:00 07/26/16 11:59 06/27/16 12:20 2 PUFFS Pantoprazole Sodium (Protonix Tab) 40 mg BID PO 06/27/16 20:00 07/27/16 19:59 Objective Vital Signs Date Time Temp Pulse Resp B/P Pulse Ox O2 Delivery O2 Flow Rate FiO2 06/27/16 08:00 Room Air 06/27/16 07:56 36.9 96 18 108/64 98 Room Air 06/27/16 00:05 Room Air 06/26/16 23:32 36.9 88 18 104/64 96 Room Air 06/26/16 21:58 Room Air 06/26/16 16:00 Room Air 06/26/16 15:44 36.7 91 18 128/73 98 Room Air Physical Exam General Appearance: no apparent distress Neck: supple, trachea midline Respiratory/Chest: chest non-tender, lungs clear, normal breath sounds, no respiratory distress Cardiovascular: regular rate, rhythm, no edema Abdomen: normal bowel sounds, soft, no organomegaly, no pulsatile mass, + pertinent finding (mild tender on epigastric on deep palpation) Extremities: non-tender, no pedal edema Neurologic/Psychiatric: alert, normal mood/affect, oriented x 3 Skin: normal color, warm/dry, no rash Laboratory Results Results Past 24 Hours Test 06/27/16 06:20 06/27/16 09:40 Range/Units White Blood Count 15.54 4.8-10.8 K/uL Red Blood Count 2.61 4.7-6.1 M/uL Hemoglobin 8.3 14.0-18.0 g/dL Hematocrit 25.4 42-52 % Mean Corpuscular Volume 97.3 80-100 fL Mean Corpuscular Hemoglobin 31.8 25-34 pg Mean Corpuscular Hemoglobin Concent 32.7 32-36 g/dl Platelet Count 205 130-400 K/uL Mean Platelet Volume 10.3 7.4-10.4 fL Neutrophils (%) (Auto) 67.6 % Lymphocytes (%) (Auto) 16.0 % Monocytes (%) (Auto) 15.8 % Eosinophils (%) (Auto) 0.1 % Basophils (%) (Auto) 0.2 % Neutrophils # (Auto) 10.53 1.4-6.5 K/uL Lymphocytes # (Auto) 2.48 1.2-3.4 K/uL Monocytes # (Auto) 2.45 0.11-0.59 K/uL Eosinophils # (Auto) 0.01 0-0.5 K/uL Basophils # (Auto) 0.03 0-0.2 K/uL RDW Standard Deviation 66.2 36.4-46.3 fL RDW Coefficient of Variation 19.3 11.5-14.5 % Immature Granulocyte % (Auto) 0.3 % Immature Granulocyte # (Auto) 0.04 0.00-0.02 K/uL Nucleated RBC Absolute Count (auto) 0.16 0-0 K/uL Nucleated Red Blood Cells % 1.1 % Polychromasia 2+ Basophilic Stippling 1+ Anisocytosis PRESENT Spherocytes 3+ Sodium Level 141 136-145 mmol/L Potassium Level 3.6 3.5-5.1 mmol/L Chloride Level 107 98-107 mmol/L Carbon Dioxide Level 24 21-32 mmol/L Anion Gap 10.0 3-11 mmol/L Blood Urea Nitrogen 11 7-18 mg/dl Creatinine 0.89 0.60-1.40 mg/dl Est Creatinine Clear Calc Drug Dose 130.7 ml/min Estimated GFR () 139.7 Estimated GFR (Non- 120.5 BUN/Creatinine Ratio 12.6 10-20 Random Glucose 89 70-99 mg/dl Calcium Level 8.6 8.5-10.1 mg/dl Total Bilirubin 3.4 0.2-1 mg/dl Aspartate Amino Transf (AST/SGOT) 18 15-37 U/L Alanine Aminotransferase (ALT/SGPT) 22 12-78 U/L Alkaline Phosphatase 45 45-117 U/L Total Protein 6.5 6.4-8.2 gm/dl Albumin 3.5 3.4-5.0 gm/dl Globulin 3.0 2.5-4.0 gm/dl Albumin/Globulin Ratio 1.2 0.9-2 Vancomycin Level Trough 22.0 SEE COMMENT mcg/ml Assessment and Plan The patient is a 25-year-old male with a history of hereditary spherocytosis and hemolytic anemia, presented to the hospital with worsening anemia secondary to febrile illness. 1. Hemolytic anemia with hereditary spherocytosis - Secondary to metabolic stressors from febrile illness. - Hgb is stable (8.3) and high reticulo count (0.41) - Heme/Onc on board, continue to appreciate their recommendations - f/u with heme/onc after discharge - d/c steroids 2. Febrile illness - Patient is afebrile - Blood culture negative X48hrs - Stop all the antibiotics (Vanco, Zosyn, and levofloxacin) 3. Epigastric pain with swallowing food - Elevated lipase, most probably secondary to acute pancreatitis - Increased Protonix 40mg to BID - Start Sucralfate 1 gm qid - At this time will continue to observe and reassess tomorrow morning. If pain is not control tomorrow am will make him NPO and will have CT of abd. 4. Leukocytosis - Improving (15.54) - Continue to follow 5. DVT prophylaxis - Ambulation 6. Code Status - Full code History Resident Physician Supervision Note: I was present with Dr. Mejia during the history and exam. I discussed the case with the resident and agree with the findings and plan as documented in the note. Any exceptions or clarifications are listed here. Pt seen and examined at bedside. No acute events overnight. Persistent epigastric burning pain w/ oral intake which improves shortly after cessation ( incl' water and crackers). Accompanied by some nausea w/ pain which also resolves. Anemia sx not present. Reports no hematemesis, vomiting, changes in BM , rashes, lightheadedness, other CP. h/o Cholecystectomy. General Appearance: WD/WN, no apparent distress Respiratory: chest non-tender, lungs clear, normal breath sounds, no respiratory distress Cardiovascular: normal peripheral pulses, regular rate, rhythm, no edema, no murmur Gastrointestinal: normal bowel sounds, soft, no organomegaly, other ( epigastric TTP reproducing pain to lesser degree) Assessment/Plan 25 y/o male h/o hereditary spherocytosis w/ chronic anemia w/ acute exacerbation 2/2 febrile illness now w/ epigastric abd pain Epigastric abdominal pain - elevated lipase, likely acute pancreatitis - started on carafate and 40mg BID PPI. Will re-evaluate for improvement. If not : - repeat lipase in AM - change diet to NPO - CT abdomen w/ IV contrast to further evaluate Anemia w/ hereditary spherocytosis - H/H stable, trend - afebrile, BCx neg x 48hr - d/c abx, steroids
[2016-06-27 16:00] VITALS: O2SAT 98
[2016-06-27 16:11] VITALS: BP 117/74; PULSE 100; TEMP 36.7; O2SAT 98
[2016-06-27] MEDS: SUCRALFATE 1 GM/10 ML UDC PO SCH ×2 (17:39→20:29)
[2016-06-27] MEDS ORDERED: VANCOMYCIN INJ 1,350 MG in SODIUM CHLORIDE 0.9% 250ML 250 ML IV SCH (20:00)
[2016-06-28 00:02] VITALS: BP 117/64; PULSE 102; TEMP 37.3; O2SAT 98
[2016-06-28] MEDS: LEValbuterol HFA 15GM INHALER INH SCH ×3 (00:28→13:40)
[2016-06-28] MEDS: IPRATROPIUM BROMIDE HFA INHALER INH SCH ×3 (00:28→13:40)
[2016-06-28] MEDS: CALCIUM CARBONATE 500 MG CHEWABLE PO PRN ×2 (02:43→06:44)
--- NOTE | 2016-06-28 07:15 | Family Medicine Progress Note ---
Progress Note Date of Service Jun 28, 2016.
[2016-06-28 07:16] LABS: BASO % 0.4 %; BASO ABS # 0.06 K/uL (0-0.2); EOS % 0.4 %; HEMATOCRIT 23.9 % (42-52); IG% 0.4 %; LYMPH % 15.4 %; LYMPH ABS # 2.12 K/uL (1.2-3.4); MEAN CELL VOLUME 93.7 fL (80-100); MEAN CORPUSCULAR HEMOGLOBIN 31.8 pg (25-34); MEAN CORPUSCULAR HGB CONC 33.9 g/dl (32-36); MEAN PLATELET VOLUME 10.2 fL (7.4-10.4); MONO % 20.2 %; NEUT % 63.2 %; PLATELET COUNT 207 K/uL (130-400); RED BLOOD COUNT 2.55 M/uL (4.7-6.1); WHITE BLOOD COUNT 13.78 K/uL (4.8-10.8)
[2016-06-28 07:41] LABS: CREATININE 1.1 mg/dl (0.60-1.40)
[2016-06-28 07:56] LABS: COMPLETE YES; POLYCHROMASIA 2+; SPHEROCYTE 3+
[2016-06-28 08:00] VITALS: O2SAT 98
[2016-06-28 08:18] VITALS: BP 114/73; PULSE 110; TEMP 37.2; O2SAT 97
[2016-06-28] MEDS: SUCRALFATE 1 GM/10 ML UDC PO SCH ×2 (08:24→13:41)
[2016-06-28] MEDS: FoLIC ACID TAB 400 MCG TAB PO SCH (08:24)
[2016-06-28] MEDS: PANTOprazole SOD 40 MG TAB PO SCH (08:25)
[2016-06-28 08:40] VITALS: O2SAT 98
--- NOTE | 2016-06-28 09:01 | HEME/ONC PROGRESS NOTE ---
DATE: 06/28/2016 DATE: 06/28/2016. DIAGNOSES: 1. Low grade fever. 2. Viral syndrome. 3. Hereditary spherocytosis. HOSPITAL COURSE: Brando is a 25-year-old gentleman now on hospital day 3 for fever of unknown origin, suspected viral syndrome (upper respiratory infection). Clinically, seems to be doing a bit better. His appetite is not maximal at this point. He is moving his bowels regularly. Continues to experience dysphagia and primary team has started Cafagate. Hemoglobin remains stable around 8.1. Offered transfusional support, which was respectfully declined. PHYSICAL EXAMINATION: GENERAL: He is in no acute distress. VITAL SIGNS: Temperature 37.2, pulse 110, respiratory rate 18, blood pressure 114/73. SKIN: Without rash or lesion. HEAD, EYES, EARS, NOSE, AND THROAT: Buccal mucosa without erythema or ulceration. NECK: Supple. HEART: Regular rate and rhythm. LUNGS: Clear to auscultation. ABDOMEN: Soft, nontender, nondistended. EXTREMITIES: No clubbing, cyanosis or edema. NEUROLOGIC EXAMINATION: Intact. LABORATORY DATA: WBC count of 13,780, hemoglobin 8.1, platelet count 207,000. Creatinine today 1.1. Lipase significantly elevated at 4123. IMPRESSION: 1. Epigastric pain. 2. Fever of unknown origin. 3. Hereditary spherocytosis. 4. Leukocytosis. PLAN: I had the pleasure of seeing Brando at bedside today. Still complaining of epigastric pain. Lipase markedly elevated and suspect acute pancreatitis. Recently started on Cafagate. PO intake remains minimal at this point. Primary team considering a CT scan of the abdomen. Hemoglobin remains stable around 8 grams per deciliter. I offered transfusional support. The patient would rather hold until absolutely necessary. Overall, seems to be making steady improvement. Will continue to follow Brando periodically through his stay. CARLOS
[2016-06-28] MEDS ORDERED: PRT40 PO (09:54)
[2016-06-28] MEDS ORDERED: CRFUDL PO (09:54)
--- NOTE | 2016-06-28 10:11 | Discharge Instructions ---
Discharge Instructions Admission Reason for Admission: Hx Of Hereditary Spherocytosis, Sirs Discharge Discharge Diagnosis / Problem: febrile illness, SIRS, epigastric pain Discharge Goals Goal(s): Decrease discomfort, Increase independence, Improve disease control Activity Recommendations Activity Limitations: resume your previous activity . Instructions / Follow-Up Instructions / Follow-Up You are presented to the hospital because of febrile illness which worse your anemia. Hemolytic Anemia - Your hemoglobin is stable and your body is making red blood cells, which is good - Please follow up with heme/onc as scheduled in 1 month Abdominal pain - You most likely has gastritis and very less likely you have acute pancreatitis - Please continue taking Protonix 40mg twice daily and carafate three times a day. - Also order a test for H. pyloric that can be follow up as outpatient - Please follow up with your primary doctor in 2 weeks. If symptoms don't improve or get worse, have any other new symptoms including but not limited to high fever, nausea, vomiting, shortness of breath, or chest pain please come back to the hospital. Current Hospital Diet Patient's current hospital diet: Regular Diet Discharge Diet Recommended Diet: Regular Diet Pending Studies Studies pending at discharge: yes List of pending studies: H Pyloric stool antigen Medical Emergencies . Who to Call and When: Medical Emergencies: If at any time you feel your situation is an emergency, please call 911 immediately. . Non-Emergent Contact Non-Emergency issues call your: Primary Care Provider . . "Provider Documentation" section prepared by Ranjan Mejia. VTE Core Measure Inpt VTE Proph given/why not?: Treatment not indicated
--- NOTE | 2016-06-28 11:10 | Discharge Summary ---
Discharge Summary Admission Date: Jun 25, 2016 at 02:44 Discharge Date: Jun 28, 2016 Discharge Disposition: Home Principal Diagnosis: febrile illness, SIRS, epigastric pain Procedures: ABDOMINAL ULTRASOUND, RIGHT UPPER QUADRANT HISTORY: Right upper quadrant ultrasound. Pain. Nausea. epigastric pain. COMPARISON: None. FINDINGS: Pancreas: The pancreas demonstrates a normal echotexture. Liver: Unremarkable. Gallbladder: Prior cholecystectomy CBD: 5 mm Right kidney: No hydronephrosis. IMPRESSION: No significant abnormality identified within the within the right upper quadrant. Prior cholecystectomy. CHEST ONE VIEW PORTABLE CLINICAL HISTORY: Fever and sepsis COMPARISON STUDY: 02/06/2015 FINDINGS: The cardiac and mediastinal contours are normal. There is no evidence of focal pulmonary consolidation. There is no evidence of failure. No pleural effusions are visualized.[ IMPRESSION: No active disease in the chest. (Ranjan Mejia MD) Medication Reconciliation New Medications: Pantoprazole (Pantoprazole Sodium) 40 Mg Tab 40 MG PO BID for 30 Days, TAB Sucralfate (Sucralfate) 1 Gm/10 Ml Susp 1 GM PO QID for 30 Days Continued Medications: Folic Acid (Folic Acid) 800 Mcg Tab 800 MCG PO DAILY Discharge Exam Patient was seen during discharge. He states that his pain has improved since yesterday and tolerating food well now. He was nauseated yesterday but didn't vomit. Denies nausea today. Denies vomiting, SOB, chest pain, weakness, dizziness, or any other additional complaints. Patient was advised to follow up with the primary care provider in 2 weeks. Review of Systems: Constitutional: No chills, No fever Respiratory: No cough, No dyspnea at rest, No dyspnea on exertion, No shortness of breath Abdomen: + pain (Still have epigastric pain with food but improved since yesterday), No GI bleeding, No constipation, No diarrhea, No nausea, No vomiting Musculoskeletal: No muscle pain Genitourinary - Male: No dysuria Integumentary: No rash Physical Exam: General Appearance: no apparent distress Neck: supple, trachea midline Respiratory/Chest: chest non-tender, lungs clear, normal breath sounds, no respiratory distress Cardiovascular: regular rate, rhythm, no edema, no murmur Abdomen / GI: normal bowel sounds, soft, + tenderness (mild tender on epigastric on deep palpation) Extremities: normal inspection, no pedal edema Neurologic/Psychiatric: alert, normal mood/affect, oriented x 3 Skin: normal color, warm/dry, no rash (Ranjan Mejia MD) Hospital Course This is a 25 y/o male with a hx of hereditary spherocytosis, hemolytic anemia and cholecystectomy presented to the hospital with fever, sore throat, generalized weakness, swollen lymph nodes and a lower lip lesion at began X2days. He is also noted epigastric area discomfort when drinking water, but does not have generalized abdominal pain, nausea or vomiting. The lesion on his lip initially began as what he thought was a blister, which he manipulated and is concerned is become secondarily infected. He does note that he has baseline jaundice, which typically gets worse when he is sick. 1. Hemolytic anemia with hereditary spherocytosis - Secondary to metabolic stressors from febrile illness. - Continued to monitor H&H. Hgb became stable (8.3) and had high reticulo count (0.41) - Heme/Onc were consulted and followed him through out his hospital stay - f/u with heme/onc after discharge in 1 month 2. Febrile illness - Patient was initially placed on Solu-Medrol 60 mg IV every 6 hours, vancomycin IV per renal dosing, and Zosyn 3.375 mg IV every 6 hours. - Flu and monoscreen were negative, Coxsackie, CMV, EBV, and Parvo B19 are still pending - Stop steroid on 06/26 - Blood culture was negative X48hrs - Stop all the antibiotics (Vanco, Zosyn, and levofloxacin) on 06/27 - On discharge patient was afebrile 3. Abnormal EKG - On admission patient had abnormal EKG - Serial cardiac enzymes and Echo were normal - Patient was initially monitored in Tele and no acute events happened. Eventually downgraded to the Med/Surg 4. Epigastric pain - Patient was given Pepcid 40mg, Maalox 30ml, Lidocaine Viscous and Protonix 40mg - Patient continued to have pain. Protonix dose was increased to 40mg BID and add Carafate 1gm qid - Lipase was ordered and it was elevated (4123), US of abdomen was normal - Given improvement of pain with Protonix and Carafate patient most likely has gastritis. - H pyloric stool antigen is ordered and it's pending - Discarged home with Protonix 40mg to BID and Sucralfate 1 gm qid. Follow up with PCP in 2 weeks. 5. Leukocytosis - Improving (13.78) Called Dr. Medrano and informed her about the patient current condition and to follow up with him. Total Time Spent: Greater than 30 minutes This includes examination of the patient, discharge planning, medication reconciliation, and communication with other providers. (Ranjan Mejia MD) Total Time Spent: Greater than 30 minutes (Clemente Rogers MD) Discharge Instructions Please refer to the electronic Patient Visit Report (Discharge Instructions) for additional information. (Ranjan Mejia MD) Additional Copies To Imelda Medrano D.O. History Resident Physician Supervision Note: I was present with Dr. Mejia during the history and exam. I discussed the case with the resident and agree with the findings and plan as documented in the note. Any exceptions or clarifications are listed here. Pt reports significantly improved pain with carafate compared to yesterday, tolerating clear fluids without pain at present. Reports no nausea, lightheadedness, constipation/diarrhea, leg swelling, bruising, fatigue. (Clemente Rogers MD) Respiratory: chest non-tender, lungs clear, normal breath sounds, no respiratory distress Cardiovascular: normal peripheral pulses, regular rate, rhythm, no edema, no murmur Gastrointestinal: normal bowel sounds, soft, no organomegaly, tenderness ( epigastric, improved) (Clemente Rogers MD) Assessment/Plan 25 y/o male h/o hereditary spherocytosis w/ chronic anemia w/ acute exacerbation 2/2 febrile illness now w/ epigastric abd pain Epigastric abdominal pain - elevated lipase, pain atypical, US as noted - continue carafate and PPI x 2 wks, f/u w/ PCP Anemia w/ hereditary spherocytosis - H/H stable, repeat outpatient (Clemente Rogers MD)
--- NOTE | 2016-06-28 14:21 | DIAGNOSTIC IMAGING REPORT ---
ABDOMINAL ULTRASOUND, RIGHT UPPER QUADRANT HISTORY: Right upper quadrant ultrasound. Pain. Nausea. epigastric pain. COMPARISON: None. FINDINGS: Pancreas: The pancreas demonstrates a normal echotexture. Liver: Unremarkable. Gallbladder: Prior cholecystectomy CBD: 5 mm Right kidney: No hydronephrosis. IMPRESSION: No significant abnormality identified within the within the right upper quadrant. Prior cholecystectomy. Electronically signed by: Gregorio Valencia M.D. 06/28/2016 2:19 PM Dictated Date/Time: 06/28/2016 2:18 PM
[2016-06-28 14:40] VITALS: BP 114/73; PULSE 110; TEMP 37.2; O2SAT 98
--- NOTE | 2016-06-28 15:58 | Discharge Instructions ---
Discharge Instructions Admission Reason for Admission: Hx Of Hereditary Spherocytosis, Sirs Discharge Discharge Diagnosis / Problem: febrile illness, SIRS, epigastric pain Discharge Goals Goal(s): Decrease discomfort, Increase independence, Improve disease control Activity Recommendations Activity Limitations: resume your previous activity . Instructions / Follow-Up Instructions / Follow-Up You are presented to the hospital because of febrile illness which worse your anemia. Hemolytic Anemia - Your hemoglobin is stable and your body is making red blood cells, which is good - Please follow up with heme/onc as scheduled in 1 month Abdominal pain - You most likely has gastritis and very less likely you have acute pancreatitis - Please continue taking Protonix 40mg twice daily and carafate three times a day. - Also order a test for H. pyloric that can be follow up as outpatient - Please follow up with your primary doctor in 2 weeks. Current Hospital Diet Patient's current hospital diet: Regular Diet Discharge Diet Recommended Diet: Regular Diet Pending Studies Studies pending at discharge: yes List of pending studies: H pyloric stool antigen School Instructions Return To School: 1 day Additional Instructions: Patient was admitted to the hospital. Patient is stable to be dischrage today and can return to school in 1-2days. Medical Emergencies . Who to Call and When: Medical Emergencies: If at any time you feel your situation is an emergency, please call 911 immediately. . Non-Emergent Contact Non-Emergency issues call your: Primary Care Provider . . "Provider Documentation" section prepared by Ranjan Mejia. VTE Core Measure Inpt VTE Proph given/why not?: Treatment not indicated
[2016-06-29] MEDS ORDERED: VANCOMYCIN TROUGH SCH (03:30)
[2016-06-30 23:35] LABS: COXSACKIE A10 <1:8; COXSACKIE A16 <1:8; COXSACKIE A2 <1:8; COXSACKIE A4 <1:8; COXSACKIE A7 <1:8; COXSACKIE A9 <1:8; COXSACKIE B3 <1:8 (<1:8); COXSACKIE B4 <1:8 (<1:8); COXSACKIE B5 <1:8 (<1:8); CYTOMEGALOVIRUS IGG AB <0.91; EPSTEIN BARR VIR CAPSID IGG 2.18 INDEX; PARVOVIRUS IgG INDEX 7.8 (<0.9); PARVOVIRUS IgM INDEX 0.1 (<0.9)
== END 2016-06-28 16:40 | disposition home or self-care (01) | DRG 812 ==
LOC: ENRESERVDT → ENRESERVTM → C.EDB 23:33 → C.2T 06-25 02:44 → C.MS4W 06-25 20:23
PROVIDERS: ADMIT Hospitalist; ATTEND Family Medicine
DX: D58.0 Hereditary spherocytosis (principal); K29.70 Gastritis, unspecified, without bleeding

== ENCOUNTER → 2016-08-29 | Outpatient (CLI) | payer BC, OTHER ==
[~2016-08-29] MED LIST changes: +CRFUDL PO; +PRT40 PO
--- NOTE | 2016-08-29 16:07 | DIAGNOSTIC IMAGING REPORT ---
CHEST 2 VIEWS ROUTINE HISTORY: COUGH COMPARISON: Chest 06/17/2016. FINDINGS: The lungs are clear. Cardiac silhouette is normal in size. No pleural effusions. No pneumothorax. Cholecystectomy. IMPRESSION: No acute process. Electronically signed by: Jayro Mesa M.D. 08/29/2016 4:06 PM Dictated Date/Time: 08/29/2016 4:04 PM
[2016-08-29 17:08] LABS: BASO % 0.7 %; BASO ABS # 0.11 K/uL (0-0.2); EOS % 1.6 %; HEMATOCRIT 25.8 % (42-52); IG% 0.5 %; LYMPH ABS # 2.75 K/uL (1.2-3.4); MEAN CELL VOLUME 94.5 fL (80-100); MEAN CORPUSCULAR HEMOGLOBIN 31.5 pg (25-34); MEAN CORPUSCULAR HGB CONC 33.3 g/dl (32-36); MEAN PLATELET VOLUME 10.1 fL (7.4-10.4); MONO % 13.7 %; NEUT % 65.5 %; PLATELET COUNT 304 K/uL (130-400); RED BLOOD COUNT 2.73 M/uL (4.7-6.1); WHITE BLOOD COUNT 15.26 K/uL (4.8-10.8)
[2016-08-29 17:38] LABS: ALB/GLOB RATIO 1.2 (0.9-2); ALKALINE PHOSPHATASE 83 U/L (45-117); ALT/SGPT 30 U/L (12-78); AST/SGOT 32 U/L (15-37); BLOOD UREA NITROGEN 6 mg/dl (7-18); BUN/CREATININE RATIO 9.9 (10-20); CARBON DIOXIDE 26 mmol/L (21-32); CHLORIDE 106 mmol/L (98-107); CREATININE 0.65 mg/dl (0.60-1.40); GLUCOSE 101 mg/dl (70-99); POTASSIUM 3.4 mmol/L (3.5-5.1); SODIUM 140 mmol/L (136-145)
[2016-08-29 17:47] LABS: ANISOCYTOSIS PRESENT; COMPLETE YES; POLYCHROMASIA 1+
[2016-08-30 10:01] LABS: SPHEROCYTE 3+
== END | disposition home or self-care (01) ==
LOC: C.LABBC 15:33
PROVIDERS: ATTEND Family Medicine
DX: R17 Unspecified jaundice (principal); R05 Cough

== ENCOUNTER 2019-10-03 16:12 | Inpatient (IN) ==
--- OUTSIDE RECORDS SUMMARY | 2019-10-03 16:14 | External Medical Summary | Continuity of Care Document ---
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) Allergic rhinitis (477.9) (J30.9) Allergies and Adverse Reactions No Known Drug Allergies (Allergy) Medications Folic Acid 800 MCG Oral Tablet Refills: 0 Azelastine HCl - 0.1 % Nasal Solution; T wo sprays in each nostril twice daily as needed Arminda Johnston Start: 23-Aug-2018 Quantity: 1 30 ML Bottle Refills: 11 Fluticasone Propionate 50 MCG/ACT Nasal Suspension; USE 2 SPRAYS IN EACH NOSTRIL ONCE DAILY Arminda Johnston Start: 23-Aug-2018 Quantity: 1 16 GM Bottle Refills: 11 Procedures History of cholecystectomy Status: Compl eted History of medial patellofemoral ligament reconstruction Status: Completed Immunizations Immunizations not documented Family History Mother No pertinent family history (V49.89) (Z78.9) Status: Active Father No pertinent family history (V49.89) (Z78.9) Status: Active Social History - Smoking Status Ex-smoker Plan of Treatment Planned Observations Planned Goals not documented Results No Known Results Results not documented Encounters Appointment; Emory Johnston M.D. 23-Aug-2018 13:30 Encounter Diagnosis: Problem not documented Appointment; Emory Johnston M.D. 18-Sep-2018 13:10 Encounter Diagnosis: Problem not documented
[2019-10-03] MEDS ORDERED: ACETAMINOPHEN 500 MG TAB PO STA (16:59)
[2019-10-03] MEDS ORDERED: SODIUM CHLORIDE 0.9% 1000ML 1,000 ML IV SCH (17:00)
[2019-10-03 17:59] LABS: Basophils # (auto) 0.04 K/uL (0-0.2); Basophils % (auto) 0.5 %; Eosinophils # (auto) 0.04 K/uL (0-0.5); Eosinophils % (auto) 0.5 %; Hematocrit (blood only) 25.4 % (42-52); Hemoglobin 8.3 g/dL (14.0-18.0); Immature Granulocytes # (auto) 0.06 K/uL (0.00-0.02); Immature Granulocytes % (auto) 0.7 %; Lymphocytes # (auto) 0.52 K/uL (1.2-3.4); Lymphocytes % (auto) 6.3 %; Mean Corpuscular Hemoglobin 33.5 pg (25-34); Mean Corpuscular Hgb Conc 32.7 g/dL (32-36); Mean Corpuscular Volume 102.4 fL (80-100); Mean Platelet Volume 9.9 fL (7.4-10.4); Monocytes # (auto) 2.14 K/uL (0.11-0.59); Monocytes % (auto) 25.8 %; Neutrophils # (auto) 5.51 K/uL (1.4-6.5); Neutrophils % (auto) 66.2 %; Nucleated RBC % (auto) 4.9 %; Platelet Count 182 K/uL (130-400); RDW Coefficient of Variation 23.7 % (11.5-14.5); RDW Standard Deviation 83.2 fL (36.4-46.3); Red Blood Count 2.48 M/uL (4.7-6.1); White Blood Count 8.31 K/uL (4.8-10.8)
--- NOTE | 2019-10-03 18:18 | Emergency Department Note ---
Impression & Plan Febrile illness, acute, History of hemolytic anemia, History of hereditary spherocytosis, Anemia, Tachycardia ED Provider Note NAME: ASAEL NIETO AGE: 28 SEX: M ARRIVES VIA: Walk-In INFORMANT: [Patient] ED PROVIDER(S): Jakob Thorne MD CHIEF COMPLAINT: Fever PLAN: Disposition: Admitted Condition: [Good] MEDICAL DECISION MAKING: Patient presented to the emergency department with fever. The patient was tachycardic and febrile. He was treated with Tylenol and IV fluids. A febrile illness work-up was initiated. His history of hereditary spherocytosis was concerning as he has had hemolytic anemia. His last hemoglobin measured as an outpatient he reported as 12. CBC revealed hemoglobin of 8. After fever control and hydration the patient's tachycardia improved. Bio fire testing was negative. Chest x-ray was negative. Given the patient's history I was concerned about possible bacteremia and he was given empiric Rocephin. His pro calcitonin is mildly elevated. I discussed further management in the hospital as he is moderately anemic and this needs to be trended. His blood cultures and other test need to be monitored. The patient was in agreement. I did consult with Dr. Hull of internal medicine. The patient will be evaluated in the ER for further management. Triage Nursing notes reviewed and agree them. [Prior medical records reviewed] prior history of hemolytic anemia noted. Vital Signs: reviewed and remarkable for fever and tachycardia Differential diagnosis: Viral syndrome, otitis, pharyngitis, pneumonia, influenza, meningitis, urinary tract infection, sepsis, bacteremia, hemolytic anemia, as well as other pathologies. ER treatment provided: Tylenol Saline hydration Diagnostics interpreted by me: ECG: [none] Cardiac Monitoring: Cardiac monitoring ordered by me: The patient was placed on continuous cardiac monitoring and observed. It revealed a sinus tachycardia rhythm at 120 beats per minute without ectopy or evidence of dysrhythmia. Laboratory studies: [See below] moderate anemia on CBC. Reticulocyte count elevated. Platelets normal. Imaging studies: Imaging studies: Chest x-ray. Findings: A chest x-ray was performed and revealed no pneumothorax, effusion, infiltrate, pulmonary edema, free air under the diaphragm, or wide mediastinum. Impression: No acute disease. Consultation(s): Dr. Hull, internal medicine HPI: 28/M arrives for evaluation of fever. He notes mild cough and fever over the last 2 days. He also notes some discomfort in his left upper quadrant of his abdomen which he states is common when he gets fever because he has an enlarged spleen. He was concerned as he has a history of hereditary spherocytosis and hemolytic anemia with fever type illnesses. Patient states he has been close to transfusion threshold on his last visit. He denies any sick contacts. He has been in quarantine with his family in a remote area of [facility] for the last 2 months. He did come back to [place] just recently. He states he has been by himself without any significant contacts. The patient took no medication for relieving factors. Pt denies LOC, headache, diaphoresis, visual changes, neck pain, chest pain, breathing difficulties, nausea, vomiting, other abdominal pain, back pain, melena, hematochezia, urinary symptoms, numbness, weakness, lymphadenopathy, rash, or other complaints. ROS: See above HPI for pertinent positives & negatives. A total of [10] systems reviewed and were otherwise negative. PAST MEDICAL HISTORY:[See Below] hereditary spherocytosis PAST SURGICAL HISTORY:[See Below] FAMILY HISTORY:[See Below] SOCIAL HISTORY:[See Below] HOME MEDICATIONS:[See Below] ALLERGIES:[See Below] VITALS:[See Below] PHYSICAL EXAMINATION: GENERAL: Awake, alert, well-appearing, in no distress HENT: Normocephalic, atraumatic. Oropharynx unremarkable. EYES: Normal conjunctiva. Sclera mildly-icteric. NECK: Inspection normal. Non-tender. Supple. No nuchal rigidity. FROM. No masses. RESPIRATORY: Clear to auscultation. No wheezes. No rales. Normal respiratory effort. CARDIAC: Tachycardic rate. Normal rhythm. No murmurs. No rubs. Extremities warm and well perfused. Pulses equal. No JVD. GI: Soft, non-distended. Minimal left upper quadrant tenderness to palpation. No rebound or guarding. RECTAL: Deferred. MUSCULOSKELETAL: Atraumatic. Chest examination reveals no tenderness. The back is symmetrical on inspection without obvious abnormality. There is no CVA tenderness to palpation. No joint edema. LOWER EXTREMITIES: Calves are equal size bilaterally and non-tender. No edema. No discoloration. NEURO: Normal sensorium. No sensory or motor deficits noted. SKIN: No rash or jaundice noted. ED COURSE: [Critical Care:] [None] Jakob Thorne MD Past Med/Surg History Medical History (Updated 10/03/19 @ 18:15 by Jakob Thorne MD) SIRS (systemic inflammatory response syndrome) Social History Preferred Language: Turkish Feels Safe at Home: Yes Smoking Status: Former smoker Allergies Allergies Allergy/AdvReac Type Severity Reaction Status Date / Time No Known Allergies Allergy Verified 03/28/18 15:26 Home Meds Home Medications Medication Instructions Recorded Confirmed folic acid 0.8 mg PO DAILY 10/03/19 10/03/19 Results & Data (ED) Vital Signs Vital Signs - 24 hr 10/03/19 16:20 10/03/19 17:54 10/03/19 17:58 Temperature 39.2 C H Temperature Source Oral Pulse Rate 139 H 126 H 127 H Pulse Rate [Finger] Pulse Rate from SpO2 Sensor 126 H 127 H Pulse Rhythm Regular Pulse Strength Normal Respiratory Rate 20 20 21 Respiratory Effort / Characteristics Non-Labored Spontaneous Respiratory Depth Normal Respiratory Pattern Regular Blood Pressure 140/96 104/72 Blood Pressure [Left Arm] Blood Pressure Mean 110 85 Blood Pressure Mean [Left Arm] Blood Pressure Position Sitting Pulse Oximetry 98 99 99 Oxygen Delivery Method Room Air Sepsis Recent Fever Within 48 Hours Yes Sepsis New/Unexplained Change in Mental Status No Sepsis Action Taken by Nursing No Action Required 10/03/19 18:00 10/03/19 18:01 10/03/19 18:30 Temperature Temperature Source Pulse Rate 125 H 127 H 120 H Pulse Rate [Finger] Pulse Rate from SpO2 Sensor 125 H 127 H 123 H Pulse Rhythm Pulse Strength Respiratory Rate 23 20 20 Respiratory Effort / Characteristics Respiratory Depth Respiratory Pattern Blood Pressure 131/74 Blood Pressure [Left Arm] Blood Pressure Mean 92 Blood Pressure Mean [Left Arm] Blood Pressure Position Pulse Oximetry 99 100 96 Oxygen Delivery Method Sepsis Recent Fever Within 48 Hours Sepsis New/Unexplained Change in Mental Status Sepsis Action Taken by Nursing 10/03/19 18:44 10/03/19 19:00 10/03/19 19:01 Temperature Temperature Source Pulse Rate 120 H 116 H 116 H Pulse Rate [Finger] Pulse Rate from SpO2 Sensor 120 H 117 H 115 H Pulse Rhythm Pulse Strength Respiratory Rate 20 18 22 Respiratory Effort / Characteristics Respiratory Depth Respiratory Pattern Blood Pressure 113/65 115/68 Blood Pressure [Left Arm] Blood Pressure Mean 80 97 Blood Pressure Mean [Left Arm] Blood Pressure Position Pulse Oximetry 96 97 97 Oxygen Delivery Method Sepsis Recent Fever Within 48 Hours Sepsis New/Unexplained Change in Mental Status Sepsis Action Taken by Nursing 10/03/19 20:07 10/03/19 21:04 Temperature 38.1 C H Temperature Source Oral Pulse Rate Pulse Rate [Finger] 115 H Pulse Rate from SpO2 Sensor Pulse Rhythm Pulse Strength Respiratory Rate 20 Respiratory Effort / Characteristics Non-Labored Spontaneous Respiratory Depth Normal Respiratory Pattern Blood Pressure Blood Pressure [Left Arm] 122/73 Blood Pressure Mean Blood Pressure Mean [Left Arm] 89 Blood Pressure Position Pulse Oximetry 97 Oxygen Delivery Method Room Air Sepsis Recent Fever Within 48 Hours Sepsis New/Unexplained Change in Mental Status Sepsis Action Taken by Nursing Laboratory Data Result diagrams: 10/03/19 17:40 10/03/19 17:40 Lab Results 10/03/19 10/03/19 10/03/19 Range/Units 17:40 17:40 17:40 WBC 8.31 (4.8-10.8) K/uL RBC 2.48 L (4.7-6.1) M/uL Hgb 8.3 L (14.0-18.0) g/dL Hct 25.4 L (42-52) % MCV 102.4 H (80-100) fL MCH 33.5 (25-34) pg MCHC 32.7 (32-36) g/dL RDW Std Deviation 83.2 H (36.4-46.3) fL RDW Coeff of Rebecca 23.7 H (11.5-14.5) % Plt Count 182 (130-400) K/uL MPV 9.9 (7.4-10.4) fL Immature Gran % (Auto) 0.7 % Neut % (Auto) 66.2 % Lymph % (Auto) 6.3 % [place] % (Auto) 25.8 % Eos % (Auto) 0.5 % Baso % (Auto) 0.5 % Reticulocyte % (Auto) 20.3 H (0.5-2.0) % Immature Gran # (Auto) 0.06 H (0.00-0.02) K/uL Neut # (Auto) 5.51 (1.4-6.5) K/uL Lymph # (Auto) 0.52 L (1.2-3.4) K/uL [place] # (Auto) 2.14 H (0.11-0.59) K/uL Eos # (Auto) 0.04 (0-0.5) K/uL Baso # (Auto) 0.04 (0-0.2) K/uL Reticulocyte # 0.50 H (0.02-0.10) 10^6/uL Absolute Nucleated RBC 0.40 H (0-0) K/uL Nucleated RBC % (auto) 4.9 % Polychromasia 2+ Basophilic Stippling 1+ Anisocytosis Present Macrocytosis Present Pappenheimer Bodies 1+ [place] Bodies Occasional Sodium 135 L (136-145) mmol/L Potassium 3.3 L (3.5-5.1) mmol/L Chloride 103 (98-107) mmol/L Carbon Dioxide 24 (21-32) mmol/L Anion Gap 8.0 (3-11) BUN 9 (7-18) mg/dl Creatinine 0.92 (0.6-1.4) mg/dl Est Cr Clr Drug Dosing 130.7 ml/min Est GFR ( Amer) 132.6 Est GFR (Non-Af Amer) 114.4 BUN/Creatinine Ratio 9.4 L (10-20) Glucose 104 H (70-99) mg/dl Lactate (0.4-2.0) mmol/L Calcium 8.5 (8.5-10.1) mg/dl Total Bilirubin 8.7 H (0.2-1) mg/dl AST 139 H (15-37) U/L ALT 66 (12-78) U/L Alkaline Phosphatase 68 (45-117) U/L Total Protein 7.6 (6.4-8.2) gm/dl Albumin 4.1 (3.4-5.0) gm/dl Globulin 3.5 (2.5-4.0) gm/dl Albumin/Globulin Ratio 1.2 (0.9-2) Procalcitonin (0-0.5) ng/ml Urine Color Urine Appearance (Clear) Urine pH (4.5-7.5) Ur Specific [place] (1.000-1.030) Urine Protein (Negative) Urine Glucose (UA) (Negative) Urine Ketones (Negative) Urine Blood (Negative) Urine Nitrite (Negative) Urine Bilirubin (Negative) Urine Urobilinogen (Negative) Ur Leukocyte Esterase (Negative) Urine WBC (Auto) (0-5) /hpf Urine RBC (Auto) (0-4) /hpf U Hyaline Cast (Auto) (0-5) /lpf U Epithel Cells (Auto) (0-5) /lpf Urine Bacteria (Auto) (Negative) Adenovirus (PCR) (NotDetected) B. pertussis DNA (PCR) (NotDetected) B.parapertussis DNA PCR (NotDetected) C. pneumoniae DNA (PCR) (NotDetected) Coronavirus OC43 (PCR) (NotDetected) Coronavirus HKU1 (PCR) (NotDetected) Coronavirus 229E (PCR) (NotDetected) Coronavirus NL63 (PCR) (NotDetected) Human Metapneumovir PCR (NotDetected) Influenza Type A (PCR) (NotDetected) Influenza Type B (PCR) (NotDetected) M. pneumoniae (PCR) (NotDetected) Parainfluenza 1 (PCR) (NotDetected) Parainfluenza 2 (PCR) (NotDetected) Parainfluenza 3 (PCR) (NotDetected) Parainfluenza 4 (PCR) (NotDetected) RSV (PCR) (NotDetected) Entero/Rhino (PCR) (NotDetected) Blood Type A Negative Antibody Screen NEGATIVE 10/03/19 10/03/19 10/03/19 Range/Units 17:40 17:40 17:40 WBC (4.8-10.8) K/uL RBC (4.7-6.1) M/uL Hgb (14.0-18.0) g/dL Hct (42-52) % MCV (80-100) fL MCH (25-34) pg MCHC (32-36) g/dL RDW Std Deviation (36.4-46.3) fL RDW Coeff of Rebecca (11.5-14.5) % Plt Count (130-400) K/uL MPV (7.4-10.4) fL Immature Gran % (Auto) % Neut % (Auto) % Lymph % (Auto) % [place] % (Auto) % Eos % (Auto) % Baso % (Auto) % Reticulocyte % (Auto) Cancelled (0.5-2.0) % Immature Gran # (Auto) (0.00-0.02) K/uL Neut # (Auto) (1.4-6.5) K/uL Lymph # (Auto) (1.2-3.4) K/uL [place] # (Auto) (0.11-0.59) K/uL Eos # (Auto) (0-0.5) K/uL Baso # (Auto) (0-0.2) K/uL Reticulocyte # Cancelled (0.02-0.10) 10^6/uL Absolute Nucleated RBC (0-0) K/uL Nucleated RBC % (auto) % Polychromasia Basophilic Stippling Anisocytosis Macrocytosis Pappenheimer Bodies [place] Bodies Sodium (136-145) mmol/L Potassium (3.5-5.1) mmol/L Chloride (98-107) mmol/L Carbon Dioxide (21-32) mmol/L Anion Gap (3-11) BUN (7-18) mg/dl Creatinine (0.6-1.4) mg/dl Est Cr Clr Drug Dosing ml/min Est GFR ( Amer) Est GFR (Non-Af Amer) BUN/Creatinine Ratio (10-20) Glucose (70-99) mg/dl Lactate 1.3 (0.4-2.0) mmol/L Calcium (8.5-10.1) mg/dl Total Bilirubin (0.2-1) mg/dl AST (15-37) U/L ALT (12-78) U/L Alkaline Phosphatase (45-117) U/L Total Protein (6.4-8.2) gm/dl Albumin (3.4-5.0) gm/dl Globulin (2.5-4.0) gm/dl Albumin/Globulin Ratio (0.9-2) Procalcitonin 0.51 H (0-0.5) ng/ml Urine Color Urine Appearance (Clear) Urine pH (4.5-7.5) Ur Specific [place] (1.000-1.030) Urine Protein (Negative) Urine Glucose (UA) (Negative) Urine Ketones (Negative) Urine Blood (Negative) Urine Nitrite (Negative) Urine Bilirubin (Negative) Urine Urobilinogen (Negative) Ur Leukocyte Esterase (Negative) Urine WBC (Auto) (0-5) /hpf Urine RBC (Auto) (0-4) /hpf U Hyaline Cast (Auto) (0-5) /lpf U Epithel Cells (Auto) (0-5) /lpf Urine Bacteria (Auto) (Negative) Adenovirus (PCR) (NotDetected) B. pertussis DNA (PCR) (NotDetected) B.parapertussis DNA PCR (NotDetected) C. pneumoniae DNA (PCR) (NotDetected) Coronavirus OC43 (PCR) (NotDetected) Coronavirus HKU1 (PCR) (NotDetected) Coronavirus 229E (PCR) (NotDetected) Coronavirus NL63 (PCR) (NotDetected) Human Metapneumovir PCR (NotDetected) Influenza Type A (PCR) (NotDetected) Influenza Type B (PCR) (NotDetected) M. pneumoniae (PCR) (NotDetected) Parainfluenza 1 (PCR) (NotDetected) Parainfluenza 2 (PCR) (NotDetected) Parainfluenza 3 (PCR) (NotDetected) Parainfluenza 4 (PCR) (NotDetected) RSV (PCR) (NotDetected) Entero/Rhino (PCR) (NotDetected) Blood Type Antibody Screen 10/03/19 10/03/19 Range/Units 17:50 20:00 WBC (4.8-10.8) K/uL RBC (4.7-6.1) M/uL Hgb (14.0-18.0) g/dL Hct (42-52) % MCV (80-100) fL MCH (25-34) pg MCHC (32-36) g/dL RDW Std Deviation (36.4-46.3) fL RDW Coeff of Rebecca (11.5-14.5) % Plt Count (130-400) K/uL MPV (7.4-10.4) fL Immature Gran % (Auto) % Neut % (Auto) % Lymph % (Auto) % [place] % (Auto) % Eos % (Auto) % Baso % (Auto) % Reticulocyte % (Auto) (0.5-2.0) % Immature Gran # (Auto) (0.00-0.02) K/uL Neut # (Auto) (1.4-6.5) K/uL Lymph # (Auto) (1.2-3.4) K/uL [place] # (Auto) (0.11-0.59) K/uL Eos # (Auto) (0-0.5) K/uL Baso # (Auto) (0-0.2) K/uL Reticulocyte # (0.02-0.10) 10^6/uL Absolute Nucleated RBC (0-0) K/uL Nucleated RBC % (auto) % Polychromasia Basophilic Stippling Anisocytosis Macrocytosis Pappenheimer Bodies [place] Bodies Sodium (136-145) mmol/L Potassium (3.5-5.1) mmol/L Chloride (98-107) mmol/L Carbon Dioxide (21-32) mmol/L Anion Gap (3-11) BUN (7-18) mg/dl Creatinine (0.6-1.4) mg/dl Est Cr Clr Drug Dosing ml/min Est GFR ( Amer) Est GFR (Non-Af Amer) BUN/Creatinine Ratio (10-20) Glucose (70-99) mg/dl Lactate (0.4-2.0) mmol/L Calcium (8.5-10.1) mg/dl Total Bilirubin (0.2-1) mg/dl AST (15-37) U/L ALT (12-78) U/L Alkaline Phosphatase (45-117) U/L Total Protein (6.4-8.2) gm/dl Albumin (3.4-5.0) gm/dl Globulin (2.5-4.0) gm/dl Albumin/Globulin Ratio (0.9-2) Procalcitonin (0-0.5) ng/ml Urine Color [place] Urine Appearance Clear (Clear) Urine pH 5.0 (4.5-7.5) Ur Specific [place] 1.011 (1.000-1.030) Urine Protein 1+ H (Negative) Urine Glucose (UA) Negative (Negative) Urine Ketones Negative (Negative) Urine Blood 2+ H (Negative) Urine Nitrite Negative (Negative) Urine Bilirubin 1+ H (Negative) Urine Urobilinogen Negative (Negative) Ur Leukocyte Esterase Negative (Negative) Urine WBC (Auto) 0 (0-5) /hpf Urine RBC (Auto) 0-4 (0-4) /hpf U Hyaline Cast (Auto) 0 (0-5) /lpf U Epithel Cells (Auto) 0-5 (0-5) /lpf Urine Bacteria (Auto) Negative (Negative) Adenovirus (PCR) Not Detected (NotDetected) B. pertussis DNA (PCR) Not Detected (NotDetected) B.parapertussis DNA PCR Not Detected (NotDetected) C. pneumoniae DNA (PCR) Not Detected (NotDetected) Coronavirus OC43 (PCR) Not Detected (NotDetected) Coronavirus HKU1 (PCR) Not Detected (NotDetected) Coronavirus 229E (PCR) Not Detected (NotDetected) Coronavirus NL63 (PCR) Not Detected (NotDetected) Human Metapneumovir PCR Not Detected (NotDetected) Influenza Type A (PCR) Not Detected (NotDetected) Influenza Type B (PCR) Not Detected (NotDetected) M. pneumoniae (PCR) Not Detected (NotDetected) Parainfluenza 1 (PCR) Not Detected (NotDetected) Parainfluenza 2 (PCR) Not Detected (NotDetected) Parainfluenza 3 (PCR) Not Detected (NotDetected) Parainfluenza 4 (PCR) Not Detected (NotDetected) RSV (PCR) Not Detected (NotDetected) Entero/Rhino (PCR) Not Detected (NotDetected) Blood Type Antibody Screen Administered Medications Discontinued Medications Acetaminophen (Tylenol) 1,000 mg PO NOW STA Stop: 10/03/19 17:00 Last Admin: 10/03/19 17:57 Dose: 1,000 mg Documented by: [id number] Sodium Chloride (Nss 1000ml) 1,000 mls @ 999 mls/hr IV .[id number] SANTANA Stop: 10/03/19 18:00 Last Infusion: 10/03/19 19:48 Dose: 0 mls/hr Documented by: [id number] Admin: 10/03/19 18:47 Dose: 999 mls/hr Documented by: [id number] Ceftriaxone Sodium (Rocephin) 2,000 mg in 70 mls @ 140 mls/hr IV NOW STA Stop: 10/03/19 20:28 Last Infusion: 10/03/19 20:35 Dose: 0 mls/hr Documented by: [id number] Admin: 10/03/19 20:05 Dose: 140 mls/hr Documented by: [id number] Discharge Plan Visit Data Chief Complaint: Fever Stated Complaint: FEVER, COUGH, X1DAY ED Provider: Jakob Thorne Discharge Problem: Febrile illness, acute, History of hemolytic anemia, History of hereditary spherocytosis, Anemia, Tachycardia Forms Stand Alone Forms: My [facility] Prescriptions Prescriptions: No Action folic acid 800 mcg Tablet 0.8 mg PO DAILY RF: 0
[2019-10-03 18:23] LABS: Albumin Globulin Ratio 1.2 (0.9-2); Albumin Level 4.1 gm/dl (3.4-5.0); BUN Creatinine Ratio 9.4 (10-20); Bilirubin,Total 8.7 mg/dl (0.2-1); Calcium 8.5 mg/dl (8.5-10.1); Creatinine Clr Calc Pharmacy 130.7 ml/min; Est GFR (African American) 132.6; Est GFR (Non-African American) 114.4; Globulin 3.5 gm/dl (2.5-4.0); Potassium 3.3 mmol/L (3.5-5.1); Total Protein 7.6 gm/dl (6.4-8.2)
--- NOTE | 2019-10-03 18:34 | XRay Report ---
XR chest 1V portable HISTORY: Cough. fever COMPARISON: Chest 08/29/2016. FINDINGS: The lungs are clear. Cardiac silhouette is normal in size. No pleural effusions. No pneumot horax. IMPRESSION: No acute process. ACT 112: Negative or not required by law. Electronically signed by: Jayro Mesa M.D. 10/03/2019 6:33 PM
[2019-10-03 19:04] LABS: Anisocytosis Present; Basophilic Stippling 1+; Howell-Jolly Bodies Occasional; Macrocytosis Present; Pappenheimer Bodies 1+; Polychromasia 2+; Reticulocyte % 20.3 % (0.5-2.0)
[2019-10-03 19:28] LABS: Adenovirus PCR Not Detected (NotDetected); Coronavirus 229E PCR Not Detected (NotDetected); Coronavirus HKU1 PCR Not Detected (NotDetected); Coronavirus NL63 PCR Not Detected (NotDetected); Coronavirus OC43PCR Not Detected (NotDetected); Human Metapneumovirus PCR Not Detected (NotDetected); Influenza A PCR Not Detected (NotDetected); Influenza B PCR Not Detected (NotDetected); Parainfluenza Virus 1 PCR Not Detected (NotDetected); Rhinovirus/Enterovirus PCR Not Detected (NotDetected)
[2019-10-03 19:29] LABS: Bordetella parapertussis PCR Not Detected (NotDetected); Bordetella pertussis PCR Not Detected (NotDetected); Chlamydia pneumoniae PCR Not Detected (NotDetected); Mycoplasma pneumoniae PCR Not Detected (NotDetected); Parainfluenza Virus 2 PCR Not Detected (NotDetected); Parainfluenza Virus 3 PCR Not Detected (NotDetected); Parainfluenza Virus 4 PCR Not Detected (NotDetected); Respiratory Syncytial VirusPCR Not Detected (NotDetected)
[2019-10-03] MEDS ORDERED: cefTRIAXone SODIUM 2,000 MG/70 ML BAG IV STA (19:59)
[2019-10-03 20:16] LABS: Appearance Urine Clear (Clear); Bacteria Urine Automated Negative (Negative); Blood Urine 2+ (Negative); Cast Urine Automated 0 /lpf (0-5); Color Urine Orange; Epithelial Cell Urine Auto 0-5 /lpf (0-5); Glucose Urine UA Negative (Negative); Ketones Urine Negative (Negative); Leukocyte Esterase Urine Negative (Negative); Nitrite Urine Negative (Negative); Protein Urine 1+ (Negative); RBC Urine Automated 0-4 /hpf (0-4); Specific Gravity Urine 1.011 (1.000-1.030); Urobilinogen Urine Negative (Negative); WBC Urine Automated 0 /hpf (0-5)
[2019-10-03 20:38] LABS: Bilirubin Urine 1+ (Negative); Ictotest Urine Positive (Negative)
[2019-10-04] MEDS ORDERED: SODIUM CHLORIDE 0.9% 1000ML 1,000 ML IV SCH (01:20)
[2019-10-04] MEDS ORDERED: POTASSIUM CHLORIDE 20 MEQ TABCR PO ONE (01:45)
--- NOTE | 2019-10-04 01:54 | History & Physical Report ---
Date of Service October 04, 2019 Assessment & Plan (1) Febrile illness, acute: Patient febrile, tachycardic. WBC within normal range at 8.31. +Lymphopenia. +Procalcitonin elevated mildly at 0.51. Source unclear at this time. Certainly some concern for Covid-19, patient febrile with cough/SOB/chest discomfort, lymphopenic, elevated AST could be secondary to hemolysis. Biofire panel negative. No overt evidence of PNA on CXR. UA clear. -Follow cultures -Testing for SARS-CoV-2 sent - requesting in-house testing -Maintain isolation precautions - Contact and Airborne until testing resulted -Tylenol as needed for pain or fever Present on Admission?: Yes (2) History of hereditary spherocytosis: Most likely with ongoing hemolysis in setting of febrile illness - Hgb=8.3, baseline reported to be appx 12.5. Elevated AST, Tbili with urine bilirubin. Elevated reticulocyte count. -Admit to medical floor with telemetry -Continue to monitor CBC - transfuse for acute drop, Hgb <6 or symptomatic anemia -LDH and peripheral smear requested for AM labs -Continue PO folic acid -Gently hydration with 1/2 NSS -Consider Hematology consultation F/E/N - 1/2 NSS, monitor electrolytes, Regular diet Ppx - Lovenox Code - Full Dispo - Observation to medical floor with telemetry Admission and Anticipated Discharge Date Admission Date: October 03, 2019 Anticipated date of discharge: 10/05/19 History of Present Illness Chief Complaint: Fever Primary Care Provider: DO Brando Garcia Octaviano is a 28yo C male presenting with two days of fever to 102.7 as well as chills, slight cough/SOB and chest heaviness, LUQ pain. Denies RUBIN/visual changes/neck pain or stiffness. Denies abdominal pain/nausea/vomiting/diarrhea or constipation. No skin rashes Patient has history of hereditary spherocytosis - he reports his baseline Hgb to be about 12.5. He states that he always appears slightly jaundiced, however, this has increased in the last day. His spleen is still in place. Reports he is UTD on all vaccines. He was diagnosed as a child at age 8 and has received 3 blood transfusions during childhood for Hgb of approximately 6 He denies sick contacts or recent travel. No contact with Covid-19 positive individuals. He reports adherance to social distancing and has been living at home with exception of grocery shopping. ER Course: Tylenol, Ceftriaxone Allergies Allergy/AdvReac Type Severity Reaction Status Date / Time No Known Allergies Allergy Verified 03/28/18 15:26 Home Medications Home Medications Medication Instructions Recorded Confirmed Type folic acid 0.8 mg PO DAILY 10/03/19 10/03/19 History Past Med/Surg History Medical History (Updated 10/04/19 @ 01:44 by Scarlet Hull DO) History of hereditary spherocytosis (Inactive) Family History (Updated 10/04/19 @ 01:45 by Scarlet Hull DO) Other Hereditary spherocytosis Social History Preferred Language: Georgian Communication Ability: Effective Beliefs That Will Affect Care: None Current Living Situation: Alone Current Living Situation Comment: roomates no longer living there Feels Safe at Home: Yes Safety Concerns: Feels Safe At This Time Smoking Status: Never smoker Hx Alcohol Use: Yes Alcohol type: beer and hard liquor Hx Substance Use: No Review of Systems Review of Systems: All systems reviewed & are unremarkable except as noted in HPI & below Physical Exam Physical Exam: General: patient resting comfortably, NAD, non-toxic in appearance, AA&O x 4 Skin: warm, dry, intact, no rashes or lesions, slightly jaundiced HEENT: NC/AT, PERRL, EOMI, mild scleral icterus, conjunctiva without injection, external ear normal to inspection and nontender, nares patent, moist mucus membranes, dentition intact, no oropharyngeal lesions, neck supple, trachea midline, no LAD, no thyromegaly, no JVD Heart: +S1/S2, regular, no m/r/g Lungs: equal air entry bilaterally, no rales/rhonchi/wheezes Abd: +BS, soft, NT/ND, no masses/organomegaly/ascites Ext: warm, 2+ pulses in UE/LE bilaterally, no clubbing/cyanosis or edema Neuro: nonfocal, patient AA&O x 4, speech intact, no facial droop, moving all extremities on command with equal strength 5/5 Bedside urinal with dark, tea colored urine present Results & Data Results & Data ([facility]) Vital Signs (Past 12 Hours) Vital Signs Temp Pulse Pulse Resp BP BP Pulse Ox 10/04/19 00:35 39.5 C H 136 H 18 136/79 99 10/04/19 00:00 115 H 21 120/67 100 10/03/19 23:30 112 H 19 129/92 10/03/19 23:00 111 H 23 132/83 100 10/03/19 22:30 111 H 19 125/84 100 10/03/19 22:00 116 H 20 127/87 98 10/03/19 21:04 115 H 20 122/73 97 10/03/19 20:07 38.1 C H 10/03/19 19:01 116 H 22 97 10/03/19 19:00 116 H 18 115/68 97 10/03/19 18:44 120 H 20 113/65 96 10/03/19 18:30 120 H 20 96 10/03/19 18:01 127 H 20 100 10/03/19 18:00 125 H 23 131/74 99 10/03/19 17:58 127 H 21 99 10/03/19 17:54 126 H 20 104/72 99 10/03/19 16:20 39.2 C H 139 H 20 140/96 98 Laboratory Results Lab Results 10/03/19 10/03/19 10/03/19 Range/Units 17:40 17:40 17:40 WBC 8.31 (4.8-10.8) K/uL RBC 2.48 L (4.7-6.1) M/uL Hgb 8.3 L (14.0-18.0) g/dL Hct 25.4 L (42-52) % MCV 102.4 H (80-100) fL MCH 33.5 (25-34) pg MCHC 32.7 (32-36) g/dL RDW Std Deviation 83.2 H (36.4-46.3) fL RDW Coeff of Rebecca 23.7 H (11.5-14.5) % Plt Count 182 (130-400) K/uL MPV 9.9 (7.4-10.4) fL Immature Gran % (Auto) 0.7 % Neut % (Auto) 66.2 % Lymph % (Auto) 6.3 % [place] % (Auto) 25.8 % Eos % (Auto) 0.5 % Baso % (Auto) 0.5 % Reticulocyte % (Auto) 20.3 H (0.5-2.0) % Immature Gran # (Auto) 0.06 H (0.00-0.02) K/uL Neut # (Auto) 5.51 (1.4-6.5) K/uL Lymph # (Auto) 0.52 L (1.2-3.4) K/uL [place] # (Auto) 2.14 H (0.11-0.59) K/uL Eos # (Auto) 0.04 (0-0.5) K/uL Baso # (Auto) 0.04 (0-0.2) K/uL Reticulocyte # 0.50 H (0.02-0.10) 10^6/uL Absolute Nucleated RBC 0.40 H (0-0) K/uL Nucleated RBC % (auto) 4.9 % Polychromasia 2+ Basophilic Stippling 1+ Anisocytosis Present Macrocytosis Present Pappenheimer Bodies 1+ [place] Ignace Bodies Occasional Sodium 135 L (136-145) mmol/L Potassium 3.3 L (3.5-5.1) mmol/L Chloride 103 (98-107) mmol/L Carbon Dioxide 24 (21-32) mmol/L Anion Gap 8.0 (3-11) BUN 9 (7-18) mg/dl Creatinine 0.92 (0.6-1.4) mg/dl Est Cr Clr Drug Dosing 130.7 ml/min Est GFR ( Amer) 132.6 Est GFR (Non-Af Amer) 114.4 BUN/Creatinine Ratio 9.4 L (10-20) Glucose 104 H (70-99) mg/dl Lactate (0.4-2.0) mmol/L Calcium 8.5 (8.5-10.1) mg/dl Total Bilirubin 8.7 H (0.2-1) mg/dl AST 139 H (15-37) U/L ALT 66 (12-78) U/L Alkaline Phosphatase 68 (45-117) U/L Total Protein 7.6 (6.4-8.2) gm/dl Albumin 4.1 (3.4-5.0) gm/dl Globulin 3.5 (2.5-4.0) gm/dl Albumin/Globulin Ratio 1.2 (0.9-2) Procalcitonin (0-0.5) ng/ml Urine Color Urine Appearance (Clear) Urine pH (4.5-7.5) Ur Specific Jackson (1.000-1.030) Urine Protein (Negative) Urine Glucose (UA) (Negative) Urine Ketones (Negative) Urine Blood (Negative) Urine Nitrite (Negative) Urine Bilirubin (Negative) Urine Urobilinogen (Negative) Ur Leukocyte Esterase (Negative) Urine WBC (Auto) (0-5) /hpf Urine RBC (Auto) (0-4) /hpf U Hyaline Cast (Auto) (0-5) /lpf U Epithel Cells (Auto) (0-5) /lpf Urine Bacteria (Auto) (Negative) Adenovirus (PCR) (NotDetected) B. pertussis DNA (PCR) (NotDetected) B.parapertussis DNA PCR (NotDetected) C. pneumoniae DNA (PCR) (NotDetected) Coronavirus OC43 (PCR) (NotDetected) Coronavirus HKU1 (PCR) (NotDetected) Coronavirus 229E (PCR) (NotDetected) Coronavirus NL63 (PCR) (NotDetected) Human Metapneumovir PCR (NotDetected) Influenza Type A (PCR) (NotDetected) Influenza Type B (PCR) (NotDetected) M. pneumoniae (PCR) (NotDetected) Parainfluenza 1 (PCR) (NotDetected) Parainfluenza 2 (PCR) (NotDetected) Parainfluenza 3 (PCR) (NotDetected) Parainfluenza 4 (PCR) (NotDetected) RSV (PCR) (NotDetected) Entero/Rhino (PCR) (NotDetected) Blood Type A Negative Antibody Screen NEGATIVE 10/03/19 10/03/19 10/03/19 Range/Units 17:40 17:40 17:40 WBC (4.8-10.8) K/uL RBC (4.7-6.1) M/uL Hgb (14.0-18.0) g/dL Hct (42-52) % MCV (80-100) fL MCH (25-34) pg MCHC (32-36) g/dL RDW Std Deviation (36.4-46.3) fL RDW Coeff of Rebecca (11.5-14.5) % Plt Count (130-400) K/uL MPV (7.4-10.4) fL Immature Gran % (Auto) % Neut % (Auto) % Lymph % (Auto) % [place] % (Auto) % Eos % (Auto) % Baso % (Auto) % Reticulocyte % (Auto) Cancelled (0.5-2.0) % Immature Gran # (Auto) (0.00-0.02) K/uL Neut # (Auto) (1.4-6.5) K/uL Lymph # (Auto) (1.2-3.4) K/uL [place] # (Auto) (0.11-0.59) K/uL Eos # (Auto) (0-0.5) K/uL Baso # (Auto) (0-0.2) K/uL Reticulocyte # Cancelled (0.02-0.10) 10^6/uL Absolute Nucleated RBC (0-0) K/uL Nucleated RBC % (auto) % Polychromasia Basophilic Stippling Anisocytosis Macrocytosis Pappenheimer Bodies [place] Ignace Bodies Sodium (136-145) mmol/L Potassium (3.5-5.1) mmol/L Chloride (98-107) mmol/L Carbon Dioxide (21-32) mmol/L Anion Gap (3-11) BUN (7-18) mg/dl Creatinine (0.6-1.4) mg/dl Est Cr Clr Drug Dosing ml/min Est GFR ( Amer) Est GFR (Non-Af Amer) BUN/Creatinine Ratio (10-20) Glucose (70-99) mg/dl Lactate 1.3 (0.4-2.0) mmol/L Calcium (8.5-10.1) mg/dl Total Bilirubin (0.2-1) mg/dl AST (15-37) U/L ALT (12-78) U/L Alkaline Phosphatase (45-117) U/L Total Protein (6.4-8.2) gm/dl Albumin (3.4-5.0) gm/dl Globulin (2.5-4.0) gm/dl Albumin/Globulin Ratio (0.9-2) Procalcitonin 0.51 H (0-0.5) ng/ml Urine Color Urine Appearance (Clear) Urine pH (4.5-7.5) Ur Specific [place] (1.000-1.030) Urine Protein (Negative) Urine Glucose (UA) (Negative) Urine Ketones (Negative) Urine Blood (Negative) Urine Nitrite (Negative) Urine Bilirubin (Negative) Urine Urobilinogen (Negative) Ur Leukocyte Esterase (Negative) Urine WBC (Auto) (0-5) /hpf Urine RBC (Auto) (0-4) /hpf U Hyaline Cast (Auto) (0-5) /lpf U Epithel Cells (Auto) (0-5) /lpf Urine Bacteria (Auto) (Negative) Adenovirus (PCR) (NotDetected) B. pertussis DNA (PCR) (NotDetected) B.parapertussis DNA PCR (NotDetected) C. pneumoniae DNA (PCR) (NotDetected) Coronavirus OC43 (PCR) (NotDetected) Coronavirus HKU1 (PCR) (NotDetected) Coronavirus 229E (PCR) (NotDetected) Coronavirus NL63 (PCR) (NotDetected) Human Metapneumovir PCR (NotDetected) Influenza Type A (PCR) (NotDetected) Influenza Type B (PCR) (NotDetected) M. pneumoniae (PCR) (NotDetected) Parainfluenza 1 (PCR) (NotDetected) Parainfluenza 2 (PCR) (NotDetected) Parainfluenza 3 (PCR) (NotDetected) Parainfluenza 4 (PCR) (NotDetected) RSV (PCR) (NotDetected) Entero/Rhino (PCR) (NotDetected) Blood Type Antibody Screen 10/03/19 10/03/19 Range/Units 17:50 20:00 WBC (4.8-10.8) K/uL RBC (4.7-6.1) M/uL Hgb (14.0-18.0) g/dL Hct (42-52) % MCV (80-100) fL MCH (25-34) pg MCHC (32-36) g/dL RDW Std Deviation (36.4-46.3) fL RDW Coeff of Rebecca (11.5-14.5) % Plt Count (130-400) K/uL MPV (7.4-10.4) fL Immature Gran % (Auto) % Neut % (Auto) % Lymph % (Auto) % [place] % (Auto) % Eos % (Auto) % Baso % (Auto) % Reticulocyte % (Auto) (0.5-2.0) % Immature Gran # (Auto) (0.00-0.02) K/uL Neut # (Auto) (1.4-6.5) K/uL Lymph # (Auto) (1.2-3.4) K/uL [place] # (Auto) (0.11-0.59) K/uL Eos # (Auto) (0-0.5) K/uL Baso # (Auto) (0-0.2) K/uL Reticulocyte # (0.02-0.10) 10^6/uL Absolute Nucleated RBC (0-0) K/uL Nucleated RBC % (auto) % Polychromasia Basophilic Stippling Anisocytosis Macrocytosis Pappenheimer Bodies [place]-St[place] Ignace Bodies Sodium (136-145) mmol/L Potassium (3.5-5.1) mmol/L Chloride (98-107) mmol/L Carbon Dioxide (21-32) mmol/L Anion Gap (3-11) BUN (7-18) mg/dl Creatinine (0.6-1.4) mg/dl Est Cr Clr Drug Dosing ml/min Est GFR ( Amer) Est GFR (Non-Af Amer) BUN/Creatinine Ratio (10-20) Glucose (70-99) mg/dl Lactate (0.4-2.0) mmol/L Calcium (8.5-10.1) mg/dl Total Bilirubin (0.2-1) mg/dl AST (15-37) U/L ALT (12-78) U/L Alkaline Phosphatase (45-117) U/L Total Protein (6.4-8.2) gm/dl Albumin (3.4-5.0) gm/dl Globulin (2.5-4.0) gm/dl Albumin/Globulin Ratio (0.9-2) Procalcitonin (0-0.5) ng/ml Urine Color [place] Urine Appearance Clear (Clear) Urine pH 5.0 (4.5-7.5) Ur Specific [place] 1.011 (1.000-1.030) Urine Protein 1+ H (Negative) Urine Glucose (UA) Negative (Negative) Urine Ketones Negative (Negative) Urine Blood 2+ H (Negative) Urine Nitrite Negative (Negative) Urine Bilirubin 1+ H (Negative) Urine Urobilinogen Negative (Negative) Ur Leukocyte Esterase Negative (Negative) Urine WBC (Auto) 0 (0-5) /hpf Urine RBC (Auto) 0-4 (0-4) /hpf U Hyaline Cast (Auto) 0 (0-5) /lpf U Epithel Cells (Auto) 0-5 (0-5) /lpf Urine Bacteria (Auto) Negative (Negative) Adenovirus (PCR) Not Detected (NotDetected) B. pertussis DNA (PCR) Not Detected (NotDetected) B.parapertussis DNA PCR Not Detected (NotDetected) C. pneumoniae DNA (PCR) Not Detected (NotDetected) Coronavirus OC43 (PCR) Not Detected (NotDetected) Coronavirus HKU1 (PCR) Not Detected (NotDetected) Coronavirus 229E (PCR) Not Detected (NotDetected) Coronavirus NL63 (PCR) Not Detected (NotDetected) Human Metapneumovir PCR Not Detected (NotDetected) Influenza Type A (PCR) Not Detected (NotDetected) Influenza Type B (PCR) Not Detected (NotDetected) M. pneumoniae (PCR) Not Detected (NotDetected) Parainfluenza 1 (PCR) Not Detected (NotDetected) Parainfluenza 2 (PCR) Not Detected (NotDetected) Parainfluenza 3 (PCR) Not Detected (NotDetected) Parainfluenza 4 (PCR) Not Detected (NotDetected) RSV (PCR) Not Detected (NotDetected) Entero/Rhino (PCR) Not Detected (NotDetected) Blood Type Antibody Screen Diagnostic Findings XR chest 1V portable HISTORY: Cough. fever COMPARISON: Chest 08/29/2016. FINDINGS: The lungs are clear. Cardiac silhouette is normal in size. No pleural effusions. No pneumothorax. IMPRESSION: No acute process. ACT 112: Negative or not required by law. Code Status & VTE Plan Code Status FULL PG Care Time/CCT Total # of Minutes Spent Total Time Spent with Patient: Total time spent is greater than 50% in coordination of care (as documented) at patient's floor/unit and/or counseling patient: Coding Level of Care Code 89034 OBS Care - Level 2 Diagnoses Febrile illness, acute R50.9 History of hereditary spherocytosis Z86.2
[2019-10-04] MEDS: SODIUM CHLORIDE 0.45 % 1,000 ML IV SCH (01:57)
[2019-10-04] MEDS: ACETAMINOPHEN 325 MG TAB PO PRN ×4 (01:57→20:28)
[2019-10-04 02:20] LABS: Magnesium 2.1 mg/dl (1.8-2.4); Phosphorus 3.1 mg/dl (2.5-4.9)
[2019-10-04 06:52] LABS: Spherocytes 1+
[2019-10-04 07:13] LABS: Hematocrit (blood only) 19.3 % (42-52); Hemoglobin 6.4 g/dL (14.0-18.0); Mean Corpuscular Hemoglobin 33.9 pg (25-34); Mean Corpuscular Hgb Conc 33.2 g/dL (32-36); Mean Corpuscular Volume 102.1 fL (80-100); Mean Platelet Volume 9.6 fL (7.4-10.4); Nucleated RBC # (auto) 0.31 K/uL (0-0); Nucleated RBC % (auto) 4.5 %; Platelet Count 156 K/uL (130-400); RDW Coefficient of Variation 23.9 % (11.5-14.5); Red Blood Count 1.89 M/uL (4.7-6.1); White Blood Count 6.99 K/uL (4.8-10.8)
[2019-10-04 07:15] LABS: D Dimer 1280 ug/L FEU (0-500)
[2019-10-04 07:32] LABS: Anisocytosis Present; Basophilic Stippling 1+; Basophils # (auto) 0.04 K/uL (0-0.2); Basophils % (auto) 0.6 %; Eosinophils # (auto) 0.03 K/uL (0-0.5); Eosinophils % (auto) 0.4 %; Immature Granulocytes # (auto) 0.04 K/uL (0.00-0.02); Immature Granulocytes % (auto) 0.6 %; Lymphocytes # (auto) 1.43 K/uL (1.2-3.4); Lymphocytes % (auto) 20.5 %; Monocytes % (auto) 18.6 %; Neutrophils # (auto) 4.15 K/uL (1.4-6.5); Neutrophils % (auto) 59.3 %; Polychromasia 2+; Spherocytes 2+
[2019-10-04] MEDS ORDERED: SODIUM CHLORIDE 0.9% 250 ML IV PRN (07:52)
[2019-10-04 07:58] LABS: Bilirubin Direct 1.3 mg/dl (0-0.2)
[2019-10-04 08:00] LABS: Albumin Level 3.7 gm/dl (3.4-5.0); BUN Creatinine Ratio 9.7 (10-20); Bilirubin,Total 7.9 mg/dl (0.2-1); C Reactive Protein 5.46 mg/dl (0-0.29); Calcium 7.9 mg/dl (8.5-10.1); Creatinine Clr Calc Pharmacy 131.8 ml/min; Est GFR (African American) 134.3; Est GFR (Non-African American) 115.9; Potassium 3.7 mmol/L (3.5-5.1); Total Protein 6.9 gm/dl (6.4-8.2)
[2019-10-04 08:05] LABS: Reticulocytes # 0.38 10^6/uL (0.02-0.10)
[2019-10-04] MEDS: FOLIC ACID 400 MCG TAB PO SCH (08:07)
[2019-10-04 08:22] LABS: Ferritin 903.8 ng/ml (8-388)
[2019-10-04] MEDS: ENOXAPARIN INJ 40 MG/0.4 ML SYR SQ SCH (09:20)
--- NOTE | 2019-10-04 09:58 | Consultation Report ---
DATE OF CONSULTATION: 10/04/2019 REASON FOR CONSULTATION: Active hemolysis/hereditary spherocytosis/fever. 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 He describes a slight cough with shortness of breath and chest heaviness. His hemoglobin on admission was in the 6 gram per deciliter range, which could explain the chest pain and shortness of breath per se. He denies any recent travel; however, he visited his parents in [facility] [facility] couple of weeks ago. [place] The patient knows of no other potential COVID exposures. Testing was performed and pending at this time. In regard to hereditary spherocytosis, he was diagnosed as a child. His baseline hemoglobin is in the 12 gram per deciliter range. Brando received transfusional support when he was 8 years of age. The patient was actually seen by Dr. Park back in 05/2016 during inpatient consultation, but never followed up with CCP thereafter. Reviewed peripheral smear with Dr. Randhawa clearly shows both numerous spherocytes and nucleated RBCs with a robust reticulocytosis which is reflected in the patient's MCV. PAST MEDICAL HISTORY: Again significant for hereditary spherocytosis. MEDICATIONS: He continues daily folic acid. ALLERGIES: No known drug allergies. FAMILY HISTORY: Positive for hereditary spherocytosis. 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 He does drink alcohol and hard liquor socially, is a nonsmoker and non-illicit drug user. REVIEW OF SYSTEMS: CONSTITUTIONAL: Positive for fever and chills, no sweats per se. No rigors. Appetite has been poor over the past couple of days. He denies overt weight loss, however. SKIN: Slightly jaundiced; otherwise, no history of dermatosis or current rashes. HEENT: He admits to lightheadedness and some dizziness. No headaches. No sinus symptoms. No sore throat or dysphagia. LYMPH: No history of lymphoproliferative disease. No current adenopathy. CARDIAC: Positive for tachycardia. Has no cardiac history. No angina at present. PULMONARY: He is short of breath, dyspneic on exertion, minimal cough. No hemoptysis reported. GASTROINTESTINAL: Negative for abdominal pain. Positive for chronic splenomegaly. No diarrhea or constipation, hematochezia, melena or marivel rectal bleeding. GENITOURINARY: No hematuria, dysuria, urinary incontinence. PSYCHIATRIC: Negative for anxiety, depression or psychoses. ENDOCRINE: Negative for thyroid disease. Negative for diabetes mellitus. NEUROLOGIC: Negative for seizure, stroke or history of migraine headache. MUSCULOSKELETAL: No focal muscle weakness. No arthralgias. HEMATOLOGIC: Positive for profound anemia, reticulocytosis. PHYSICAL EXAMINATION: GENERAL: Very pleasant 28-year-old male, awake, alert and appropriate, in no acute distress. VITAL SIGNS: Temperature 38.1, pulse 99, respiratory rate 18, blood pressure 136/79. SKIN: No rashes or lesions. He is mildly jaundiced. HEENT: Atraumatic, normocephalic. Eyes: PERRLA, EOMI. Sclerae are nonicteric. No conjunctival injection. Nares patent without rhinorrhea or discharge. Throat is clear. Tongue midline. No buccal lesions or ulcerations. NECK: Supple No JVD or thyromegaly. LYMPH: No cervical or supraclavicular palpable nodes. HEART:: Tachy, but regular. LUNGS: Clear to auscultation bilaterally. No rales or rhonchi appreciated. ABDOMEN: Moderate splenomegaly palpable, tender on palpation. Bowel sounds are active, otherwise soft. EXTREMITIES: Musculoskeletal strength and pulses are equal in all 4 quadrants. No clubbing, cyanosis or edema. NEUROLOGICAL: He is awake, alert and oriented x3. Cranial nerves are intact. LABORATORY DATA: WBC count 6990, hemoglobin 6.4, platelet count 156,000, MCV 102. Monocytosis 1300 and nucleated RBCs are present on smear. D-dimer is elevated at 1280. Ferritin 903.8, TIBC 241, serum iron 68. AST 186. LDH 1237. C-reactive protein 5.46. Urine shows 2+ blood, bilirubin and protein, no wbc's. There are multiple viral titers including COVID pending. RADIOGRAPHIC DATA: Chest x-ray negative for intrapulmonary process. IMPRESSION: 1. Profound anemia attributable to hereditary spherocytosis. 2. Fever. 3. Reticulocytosis. 4. Probable viremia, COVID-19 status pending. PLAN: The patient is a very pleasant 28-year-old gentleman, somewhat known to [facility], previously seen by Dr. Hayder Park back in 05/2016 and the patient failed to followup as outpatient thereafter. For the most part, his hemolytic anemia/hereditary spherocytosis has been reasonably controlled. The patient still has his spleen, which is enlarged on physical examination. 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 Clearly his hemoglobin warrants a couple units of packed RBCs. Make sure he continues folic acid as well. Monitoring moving forward daily CBC, reticulocyte count and LDH, all of which were markedly abnormal at present. Identify infectious pathogen and treat appropriately should slow down active hemolysis. Personally, I am not convinced he suffers from COVID devoid of many of the symptoms and those that he claims could be attributable to profound anemia. It would be interesting to see if the shortness of breath and chest pain go away once he is transfused. I would try to maintain his hemoglobin over 8.5 grams per deciliter. Agree with current isolation until pathogen identified. I have nothing further to add. We will continue to periodically follow him while inpatient. Thank you very much for allowing me to participate in his care. CARLOS
[2019-10-04] MEDS ORDERED: Nursing to Pharmacy Communication ONE (21:19)
--- NOTE | 2019-10-04 23:49 | Hospitalist Progress Note ---
Date of Service October 04, 2019 Assessment & Plan (1) Febrile illness, acute: Patient febrile, tachycardic. WBC within normal range at 8.31. +Lymphopenia. +Procalcitonin elevated mildly at 0.51. Source unclear at this time. Certainly some concern for Covid-19, patient febrile with cough/SOB/chest discomfort, lymphopenic, elevated AST could be secondary to hemolysis. Biofire panel negative. No overt evidence of PNA on CXR. UA clear. -Follow cultures: negative so far. -Testing for SARS-CoV-2 sent - requesting in-house testing: this was negative. will remove precautions. As patient remains febrile, started doxycycine for possible tick borne illness. will continue to monitor. -Maintain isolation precautions - Contact and Airborne until testing resulted -Tylenol as needed for pain or fever (2) History of hereditary spherocytosis: Most likely with ongoing hemolysis in setting of febrile illness - Hgb=8.3, baseline reported to be appx 12.5. Elevated AST, Tbili with urine bilirubin. Elevated reticulocyte count. -Admit to medical floor with telemetry -transfused 2 PRNC. Will check reticulocyte count and LDL daily. -Continue PO folic acid -Gently hydration with 1/2 NSS -consulted Hematology. -workup is suggetsing an inflammatory/infectious response. -No evidence of bleeding. Ppx - Lovenox Code - Full Admission and Anticipated Discharge Date Admission Date: October 03, 2019 Subjective Patient reports no new symptoms today. He states that he is very fatigued and gets dizzy and SOB when he becomes anemic, usually below 10. He states a level below 7 is very low for him. He is also anxious for his COVID testing results and is requesting inhouse testing. Review of Systems Review of Systems: All systems reviewed & are unremarkable except as noted in HPI & below Physical Exam Physical Exam: General: patient resting comfortably, NAD, non-toxic in appearance, AA&O x 4 Skin: warm, dry, intact, no rashes or lesions, slightly jaundiced HEENT: NC/AT, PERRL, EOMI, mild scleral icterus, conjunctiva without injection, external ear normal to inspection and nontender, nares patent, moist mucus membranes, dentition intact, no oropharyngeal lesions, neck supple, trachea midline, no LAD, no thyromegaly, no JVD Heart: +S1/S2, regular, no m/r/g Lungs: equal air entry bilaterally, no rales/rhonchi/wheezes Abd: +BS, soft, NT/ND, no masses/organomegaly/ascites Ext: warm, 2+ pulses in UE/LE bilaterally, no clubbing/cyanosis or edema Neuro: nonfocal, patient AA&O x 4, speech intact, no facial droop, moving all extremities on command with equal strength 5/5 Results & Data Results & Data ([facility]) Vital Signs (Past 12 Hours) Vital Signs Temp Pulse Pulse Resp BP BP Pulse Ox 10/04/19 23:24 115 H 10/04/19 19:14 38.2 C H 116 H 19 116/68 97 10/04/19 17:40 38.1 C H 10/04/19 16:50 39.1 C H 10/04/19 15:44 38.0 C H 111 H 18 134/79 100 10/04/19 14:57 37.2 C 103 H 16 125/84 98 10/04/19 14:55 116 H 10/04/19 14:27 113 H 10/04/19 14:14 37.7 C H 107 H 18 136/73 98 10/04/19 13:57 36.7 C 114 H 16 125/78 98 10/04/19 13:38 37.4 C 116 H 16 132/77 96 10/04/19 12:42 37.3 C 116 H 16 136/82 99 10/04/19 12:05 37.4 C 111 H 16 122/76 99 PG Care Time/CCT Total # of Minutes Spent Total Time Spent with Patient: Total time spent is greater than 50% in coordination of care (as documented) at patient's floor/unit and/or counseling patient: Coding Level of Care Code 79755 Subseq Hosp Care Lvl 3 Diagnoses Febrile illness, acute R50.9 History of hereditary spherocytosis Z86.2 Time Spent (min) 35
[2019-10-05] MEDS: DOXYCYCLINE HYCLATE 100 MG in DEXTROSE 5% 100 ML IV SCH ×2 (00:30→12:26)
[2019-10-05 01:03] LABS: Hematocrit (blood only) 23.9 % (42-52); Hemoglobin 8.2 g/dL (14.0-18.0)
[2019-10-05 01:25] LABS: Lyme Ab IgG w/WB Rflx Negative (Negative)
[2019-10-05 01:56] LABS: Lyme Ab IgM w/WB Rflx Equivocal (Negative)
[2019-10-05] MEDS: SODIUM CHLORIDE 0.45 % 1,000 ML IV SCH (03:22)
[2019-10-05] MEDS: ACETAMINOPHEN 325 MG TAB PO PRN (05:52)
[2019-10-05 05:57] LABS: Basophils # (auto) 0.05 K/uL (0-0.2); Basophils % (auto) 0.6 %; Eosinophils # (auto) 0.12 K/uL (0-0.5); Eosinophils % (auto) 1.4 %; Hematocrit (blood only) 24.1 % (42-52); Immature Granulocytes # (auto) 0.04 K/uL (0.00-0.02); Immature Granulocytes % (auto) 0.5 %; Lymphocytes # (auto) 2.47 K/uL (1.2-3.4); Lymphocytes % (auto) 28.4 %; Mean Corpuscular Hgb Conc 33.2 g/dL (32-36); Mean Corpuscular Volume 96.4 fL (80-100); Mean Platelet Volume 10.2 fL (7.4-10.4); Monocytes % (auto) 19.6 %; Neutrophils # (auto) 4.31 K/uL (1.4-6.5); Neutrophils % (auto) 49.5 %; Nucleated RBC # (auto) 0.36 K/uL (0-0); Nucleated RBC % (auto) 4.1 %; Platelet Count 133 K/uL (130-400); RDW Coefficient of Variation 23.7 % (11.5-14.5); RDW Standard Deviation 75.9 fL (36.4-46.3); White Blood Count 8.69 K/uL (4.8-10.8)
[2019-10-05 06:27] LABS: Anisocytosis Present; Giant Platelets 1+; Polychromasia 1+; Reticulocyte % 17.3 % (0.5-2.0); Reticulocytes # 0.43 10^6/uL (0.02-0.10); Spherocytes 1+
[2019-10-05] MEDS: ENOXAPARIN INJ 40 MG/0.4 ML SYR SQ SCH (07:44)
[2019-10-05] MEDS: FOLIC ACID 400 MCG TAB PO SCH (07:44)
--- NOTE | 2019-10-05 10:36 | Hospitalist Progress Note ---
Date of Service October 05, 2019 Assessment & Plan (1) Febrile illness, acute: To date the following are negative -- * rapid COVID-19 PCR * blood cultures * chest x-ray * urinalysis * biofire respiratory panel * monospot checked this am - negative He remains febrile without obvious source. Lyme IgM is equivocal - doxycycline IV is still being employed to cover for Lyme disease. Will send anaplasmosis DNA and ehrlichiosis DNA testing as well - doxy will cover both. EBV panel to be sent since monospot is negative. Consider CMV and parvo testing. In light of worsening AST, ongoing fevers, etc will re-check COVID-19 PCR. Unfortunately will have to place back in isolation. (2) Anemia: 2nd to hereditary spherocytosis and active hemolysis. Hb 8 today. Satisfactory with stable vitals, no dizziness, etc. Cont daily CBC, retic, LDH. Appreciate Dr Mcrae's consultation. (3) Hereditary spherocytosis: baseline Hb ~12. Hb today 8. Repeat cbc, retic, LDH in am. (4) Elevated AST (SGOT): uncertain cause. repeat level today continues to rise. viral processes (EBV, CMV, COVID-19, etc) can cause. anaplasmosis and ehrlichiosis can also cause. CPK is normal. repeat level in am. no symptoms on exam to suggest biliary colic. (5) Thrombocytopenia: mild. trending down over last 48 hours. viral suppression? tick-borne? other? cont lovenox cautiously. the drop in platelets would be a bit too early for HIT. CBC in am. (6) Splenomegaly: 2nd to hereditary spherocytosis. infectious process (viral, tick-borne disease, etc) can contribute. follow clinically w/ serial exams. (7) DVT prophylaxis: lovenox 40mg daily Admission and Anticipated Discharge Date Admission Date: October 04, 2019 Subjective Patient feeling better today. More energy, better appetite, dyspnea is resolved. Denies headaches, conjunctival discharge, ear pain, sore throat, sinus pain, nasal congestion, cough, rigors, abdominal pain (except for expected location of spleen), nausea, vomiting, diarrhea, dysuria, rash, myalgias, joint pains. Denies recent sick contacts. Was at home with his parents in the [facility] - [place]. He admits he had been outside cutting wood. Denies any tick bites. When he traveled back to [place] 1-2 weeks ago he has had very little contact with friends. Landlord was over to his rental house but he kept a distance from that person. Review of Systems Constitutional: + fever; no chills, no body aches, no fatigue and no anorexia Respiratory: no cough and no wheezing Cardiovascular: no chest pain Gastrointestinal: no abdominal pain Physical Exam Constitutional: well developed and well nourished; no acute distress and no altered mental status Eyes: + scleral abnormality (icteric ); no conjunctival abnormality ENMT: external ear and nose normal, oropharynx normal Neck: trachea midline, no thyromegaly Respiratory: normal respiratory effort, lungs clear to auscultation Cardiovascular: Rate/Rhythm: regular rate and regular rhythm Heart Sounds: normal S1 and normal S2; no murmur Vessels: posterior tibial pulses present and dorsalis pedis pulses present; no JVD Extremities: no edema Gastrointestinal (Abdomen): Inspection/Auscultation: abdomen normal to inspection and normal bowel sounds Percussion/Palpation: abdomen soft and + splenomegaly; abdomen nontender, no guarding and no hepatomegaly Musculoskeletal: no cyanosis or clubbing, extremities motor strength 5/5 Skin: no rashes, warm and dry Psychiatric: A+Ox3, euthymic affect Lymphatic: no cervical lymphadenopathy Results & Data Results & Data ([facility]) Vital Signs (Past 12 Hours) Vital Signs Temp Pulse Pulse Resp BP Pulse Ox 10/05/19 06:52 37.5 C 104 H 16 121/75 97 10/05/19 05:15 38 C H 116 H 16 137/77 98 10/05/19 00:42 37.3 C 93 H 20 139/80 100 10/04/19 23:24 115 H Laboratory Results Laboratory Results - last 24 hr 10/03/19 10/03/19 10/04/19 17:40 17:50 06:41 WBC RBC Hgb Hct MCV MCH MCHC RDW Std Deviation RDW Coeff of Rebecca Plt Count MPV Immature Gran % (Auto) Neut % (Auto) Lymph % (Auto) [place] % (Auto) Eos % (Auto) Baso % (Auto) Reticulocyte % (Auto) Immature Gran # (Auto) Neut # (Auto) Lymph # (Auto) [place] # (Auto) Eos # (Auto) Baso # (Auto) Reticulocyte # Absolute Nucleated RBC Nucleated RBC % (auto) Giant Platelets Polychromasia Anisocytosis Spherocytes Peripher Smr Path Cons AST Lactate Dehydrogenase Total Creatine Kinase Specimen Hemolysis Anaplasma Smear A. phagocytophilum DNA Lyme Disease IgG Ab Lyme IgG (Western Blot) Lyme IgG 18 kDa Band Lyme IgG 23 kDa Band Lyme IgG 28 kDa Band Lyme IgG 30 kDa Band Lyme IgG 39 kDa Band Lyme IgG 41 kDa Band Lyme IgG 45 kDa Band Lyme IgG 58 kDa Band Lyme IgG 66 kDa Band Lyme IgG 93 kDa Band Lyme IgM Ab (WB) Lyme Disease IgM Ab Lyme IgM 23 kDa Band Lyme IgM 39 kDa Band Lyme IgM 41 kDa Band COVID-19 PCR NEGATIVE E.chaffeensis DNA (PCR) EBV Capsid Ag IgG Ab EBV Capsid Ag IgM Ab EBV EA Restrict+Diffuse EBV Nuclear Antigen Ab EBV Antibody Interp Monoscreen Blood Type A Negative Antibody Screen NEGATIVE Crossmatch See Detail 10/05/19 10/05/19 10/05/19 00:13 00:13 00:13 WBC RBC Hgb 8.2 L Hct 23.9 L MCV MCH MCHC RDW Std Deviation RDW Coeff of Rebecca Plt Count MPV Immature Gran % (Auto) Neut % (Auto) Lymph % (Auto) [place] % (Auto) Eos % (Auto) Baso % (Auto) Reticulocyte % (Auto) Immature Gran # (Auto) Neut # (Auto) Lymph # (Auto) [place] # (Auto) Eos # (Auto) Baso # (Auto) Reticulocyte # Absolute Nucleated RBC Nucleated RBC % (auto) Giant Platelets Polychromasia Anisocytosis Spherocytes Peripher Smr Path Cons AST Lactate Dehydrogenase Total Creatine Kinase Specimen Hemolysis Anaplasma Smear See Comment A. phagocytophilum DNA Lyme Disease IgG Ab Negative Lyme IgG (Western Blot) Lyme IgG 18 kDa Band Lyme IgG 23 kDa Band Lyme IgG 28 kDa Band Lyme IgG 30 kDa Band Lyme IgG 39 kDa Band Lyme IgG 41 kDa Band Lyme IgG 45 kDa Band Lyme IgG 58 kDa Band Lyme IgG 66 kDa Band Lyme IgG 93 kDa Band Lyme IgM Ab (WB) Lyme Disease IgM Ab Equivocal A Lyme IgM 23 kDa Band Lyme IgM 39 kDa Band Lyme IgM 41 kDa Band COVID-19 PCR E.chaffeensis DNA (PCR) EBV Capsid Ag IgG Ab EBV Capsid Ag IgM Ab EBV EA Restrict+Diffuse EBV Nuclear Antigen Ab EBV Antibody Interp Monoscreen Blood Type Antibody Screen Crossmatch 10/05/19 10/05/19 10/05/19 00:13 05:23 05:23 WBC 8.69 RBC 2.50 L Hgb 8.0 L Hct 24.1 L MCV 96.4 D MCH 32.0 MCHC 33.2 RDW Std Deviation 75.9 H RDW Coeff of Rebecca 23.7 H Plt Count 133 MPV 10.2 Immature Gran % (Auto) 0.5 Neut % (Auto) 49.5 Lymph % (Auto) 28.4 [place] % (Auto) 19.6 Eos % (Auto) 1.4 Baso % (Auto) 0.6 Reticulocyte % (Auto) 17.3 H Immature Gran # (Auto) 0.04 H Neut # (Auto) 4.31 Lymph # (Auto) 2.47 [place] # (Auto) 1.70 H Eos # (Auto) 0.12 Baso # (Auto) 0.05 Reticulocyte # 0.43 H Absolute Nucleated RBC 0.36 H Nucleated RBC % (auto) 4.1 Giant Platelets 1+ Polychromasia 1+ Anisocytosis Present Spherocytes 1+ Peripher Smr Path Cons AST Lactate Dehydrogenase 1576 H Total Creatine Kinase Specimen Hemolysis Anaplasma Smear A. phagocytophilum DNA Lyme Disease IgG Ab Lyme IgG (Western Blot) Pending Lyme IgG 18 kDa Band Pending Lyme IgG 23 kDa Band Pending Lyme IgG 28 kDa Band Pending Lyme IgG 30 kDa Band Pending Lyme IgG 39 kDa Band Pending Lyme IgG 41 kDa Band Pending Lyme IgG 45 kDa Band Pending Lyme IgG 58 kDa Band Pending Lyme IgG 66 kDa Band Pending Lyme IgG 93 kDa Band Pending Lyme IgM Ab (WB) Pending Lyme Disease IgM Ab Lyme IgM 23 kDa Band Pending Lyme IgM 39 kDa Band Pending Lyme IgM 41 kDa Band Pending COVID-19 PCR E.chaffeensis DNA (PCR) EBV Capsid Ag IgG Ab EBV Capsid Ag IgM Ab EBV EA Restrict+Diffuse EBV Nuclear Antigen Ab EBV Antibody Interp Monoscreen Blood Type Antibody Screen Crossmatch 10/05/19 10/05/19 10/05/19 10:44 10:44 10:44 WBC RBC Hgb Hct MCV MCH MCHC RDW Std Deviation RDW Coeff of Rebecca Plt Count MPV Immature Gran % (Auto) Neut % (Auto) Lymph % (Auto) [place] % (Auto) Eos % (Auto) Baso % (Auto) Reticulocyte % (Auto) Immature Gran # (Auto) Neut # (Auto) Lymph # (Auto) [place] # (Auto) Eos # (Auto) Baso # (Auto) Reticulocyte # Absolute Nucleated RBC Nucleated RBC % (auto) Giant Platelets Polychromasia Anisocytosis Spherocytes Peripher Smr Path Cons AST 215 H Lactate Dehydrogenase Total Creatine Kinase 68 Specimen Hemolysis Anaplasma Smear A. phagocytophilum DNA Pending Lyme Disease IgG Ab Lyme IgG (Western Blot) Lyme IgG 18 kDa Band Lyme IgG 23 kDa Band Lyme IgG 28 kDa Band Lyme IgG 30 kDa Band Lyme IgG 39 kDa Band Lyme IgG 41 kDa Band Lyme IgG 45 kDa Band Lyme IgG 58 kDa Band Lyme IgG 66 kDa Band Lyme IgG 93 kDa Band Lyme IgM Ab (WB) Lyme Disease IgM Ab Lyme IgM 23 kDa Band Lyme IgM 39 kDa Band Lyme IgM 41 kDa Band COVID-19 PCR E.chaffeensis DNA (PCR) Pending EBV Capsid Ag IgG Ab EBV Capsid Ag IgM Ab EBV EA Restrict+Diffuse EBV Nuclear Antigen Ab EBV Antibody Interp Monoscreen Negative Blood Type Antibody Screen Crossmatch 10/05/19 10:44 WBC RBC Hgb Hct MCV MCH MCHC RDW Std Deviation RDW Coeff of Rebecca Plt Count MPV Immature Gran % (Auto) Neut % (Auto) Lymph % (Auto) [place] % (Auto) Eos % (Auto) Baso % (Auto) Reticulocyte % (Auto) Immature Gran # (Auto) Neut # (Auto) Lymph # (Auto) [place] # (Auto) Eos # (Auto) Baso # (Auto) Reticulocyte # Absolute Nucleated RBC Nucleated RBC % (auto) Giant Platelets Polychromasia Anisocytosis Spherocytes Peripher Smr Path Cons AST Lactate Dehydrogenase Total Creatine Kinase Specimen Hemolysis Anaplasma Smear A. phagocytophilum DNA Lyme Disease IgG Ab Lyme IgG (Western Blot) Lyme IgG 18 kDa Band Lyme IgG 23 kDa Band Lyme IgG 28 kDa Band Lyme IgG 30 kDa Band Lyme IgG 39 kDa Band Lyme IgG 41 kDa Band Lyme IgG 45 kDa Band Lyme IgG 58 kDa Band Lyme IgG 66 kDa Band Lyme IgG 93 kDa Band Lyme IgM Ab (WB) Lyme Disease IgM Ab Lyme IgM 23 kDa Band Lyme IgM 39 kDa Band Lyme IgM 41 kDa Band COVID-19 PCR E.chaffeensis DNA (PCR) EBV Capsid Ag IgG Ab Pending EBV Capsid Ag IgM Ab Pending EBV EA Restrict+Diffuse Pending EBV Nuclear Antigen Ab Pending EBV Antibody Interp Pending Monoscreen Blood Type Antibody Screen Crossmatch PG Care Time/CCT Total # of Minutes Spent Total Time Spent with Patient: Total time spent is greater than 50% in coordin ation of care (as documented) at patient's floor/unit and/or counseling patient: Coding Level of Care Code 37727 Subseq Hosp Care Lvl 3 Diagnoses Febrile illness, acute R50.9 Anemia D58.0 Anemia type: acquired or hereditary hemolytic anemia Hemolytic anemia type: hereditary spherocytosis Hereditary spherocytosis D58.0 Elevated AST (SGOT) R74.0 Thrombocytopenia D69.6 Splenomegaly R16.1 DVT prophylaxis Z29.9 (1) Anemia Anemia type: acquired or hereditary hemolytic anemia Hemolytic anemia type: hereditary spherocytosis Qualified Code(s): D58.0 - Hereditary spherocytosis
[2019-10-05 11:44] LABS: Aspartate Aminotransferase 215 U/L (15-37); Creatine Kinase 68 U/L (39-308)
[2019-10-06] MEDS: DOXYCYCLINE HYCLATE 100 MG in DEXTROSE 5% 100 ML IV SCH (00:11)
[2019-10-06 07:04] LABS: Basophils # (auto) 0.05 K/uL (0-0.2); Basophils % (auto) 0.4 %; Eosinophils % (auto) 3.2 %; Hematocrit (blood only) 23.7 % (42-52); Hemoglobin 8.1 g/dL (14.0-18.0); Immature Granulocytes # (auto) 0.07 K/uL (0.00-0.02); Immature Granulocytes % (auto) 0.6 %; Lymphocytes # (auto) 3.61 K/uL (1.2-3.4); Lymphocytes % (auto) 29.2 %; Mean Corpuscular Hemoglobin 33.6 pg (25-34); Mean Corpuscular Hgb Conc 34.2 g/dL (32-36); Mean Corpuscular Volume 98.3 fL (80-100); Mean Platelet Volume 9.6 fL (7.4-10.4); Monocytes # (auto) 2.13 K/uL (0.11-0.59); Monocytes % (auto) 17.2 %; Neutrophils # (auto) 6.11 K/uL (1.4-6.5); Neutrophils % (auto) 49.4 %; Nucleated RBC # (auto) 0.44 K/uL (0-0); Nucleated RBC % (auto) 3.5 %; Platelet Count 123 K/uL (130-400); RDW Coefficient of Variation 22.6 % (11.5-14.5); RDW Standard Deviation 75.7 fL (36.4-46.3); Red Blood Count 2.41 M/uL (4.7-6.1); Reticulocyte % 14.8 % (0.5-2.0); Reticulocytes # 0.36 10^6/uL (0.02-0.10); White Blood Count 12.37 K/uL (4.8-10.8)
[2019-10-06 07:33] LABS: Alanine Aminotransferase 84 U/L (12-78); Aspartate Aminotransferase 145 U/L (15-37); BUN Creatinine Ratio 14.3 (10-20); Blood Urea Nitrogen 10 mg/dl (7-18); Calcium 8.4 mg/dl (8.5-10.1); Carbon Dioxide 22 mmol/L (21-32); Chloride 106 mmol/L (98-107); Est GFR (African American) > 150.0; Est GFR (Non-African American) 131.8; Glucose 93 mg/dl (70-99); Potassium 3.7 mmol/L (3.5-5.1); Sodium 136 mmol/L (136-145)
[2019-10-06 07:35] LABS: Anisocytosis Present; Polychromasia 1+; Spherocytes 3+
[2019-10-06] MEDS: FOLIC ACID 400 MCG TAB PO SCH (08:17)
[2019-10-06] MEDS: ENOXAPARIN INJ 40 MG/0.4 ML SYR SQ SCH (08:17)
[2019-10-06] MEDS ORDERED: DOXYCYCLINE HYCLATE 100 MG CAP PO SCH ×2 (10:00→12:00)
--- NOTE | 2019-10-06 12:03 | Discharge Summary ---
Date of Service date of admission - October 03, 2019 date of discharge - October 06, 2019 Admission HPI Per Admitting Provider Brando Brumfield is a 28yo C male presenting with two days of fever to 102.7 as well as chills, slight cough/SOB and chest heaviness, LUQ pain. Denies RUBIN/visual changes/neck pain or stiffness. Denies abdominal pain/nausea/vomiting/diarrhea or constipation. No skin rashes Patient has history of hereditary spherocytosis - he reports his baseline Hgb to be about 12.5. He states that he always appears slightly jaundiced, however, this has increased in the last day. His spleen is still in place. Reports he is UTD on all vaccines. He was diagnosed as a child at age 8 and has received 3 blood transfusions during childhood for Hgb of approximately 6 He denies sick contacts or recent travel. No contact with Covid-19 positive individuals. He reports adherance to social distancing and has been living at home with exception of grocery shopping. ER Course: Tylenol, Ceftriaxone Principal Diagnosis febrile illness, exact etiology uncertain; hereditary spherocytosis with active hemolysis requiring PRBCs Discharge Exam Constitutional well developed and well nourished; no acute distress and no altered mental status Eyes + scleral abnormality (icteric ); no conjunctival abnormality ENMT external ear and nose normal, oropharynx normal Neck trachea midline, no thyromegaly Respiratory normal respiratory effort, lungs clear to auscultation Cardiovascular Rate/Rhythm: regular rate and regular rhythm Heart Sounds: normal S1 and normal S2; no murmur Vessels: posterior tibial pulses present and dorsalis pedis pulses present; no JVD Extremities: no edema Gastrointestinal (Abdomen) Inspection/Auscultation: abdomen normal to inspection and normal bowel sounds Percussion/Palpation: abdomen soft and + splenomegaly; abdomen nontender, no guarding and no hepatomegaly Skin no rashes, warm and dry Psychiatric A+Ox3, euthymic affect Discharge Data Allergies Allergy/AdvReac Type Severity Reaction Status Date / Time No Known Allergies Allergy Verified 03/28/18 15:26 Consultations hematology/oncology - Jermaine Mcrae DO Procedures Performed PRBCs x 2 units COVID-19 testing x 2; first negative; second pending Hospital Course (1) Febrile illness, acute: The patient had fever for the first 48 hours of his stay. The following were negative or normal: * rapid COVID-19 PCR * blood cultures * chest x-ray * urinalysis * biofire respiratory panel * monospot Lyme IgM testing was equivocal - thus, doxycycline IV was employed to cover for Lyme disease as well as other tick-borne illness. Anaplasmosis DNA and ehrlichiosis DNA testing as well were dispatched. EBV panel was sent since monospot was negative. In light of worsening AST on liver function panel, ongoing fevers, etc a repeat COVID-19 PCR was sent. This was forwarded to [facility] and was pending at time of discharge. In the 24 hours leading up to discharge the patient's fevers did resolve and he was feeling better. To cover for the possibility of Lyme and other tick-borne disease as the cause of his illness he will complete a course of oral doxycycline at home while awaiting his test results. He was also asked to isolate himself at home while awaiting repeat COVID-19 testing. (2) Anemia: 2nd to hereditary spherocytosis and active hemolysis in the setting of a febrile illness. Received 2 units of PRBCs while hospitalized. Hb was 8.1 on day of discharge. Doyle recommendations were made for his anemia by Dr Jermaine Mcrae from hematology during this stay. In 3 days post-discharge the patient will need repeat CBC, retic count, and LDH for stability purposes. He was also advised to follow-up with Dr Mcrae within 1 week of discharge. (3) Hereditary spherocytosis: baseline Hb ~12. Hb 8.1 on day of discharge. s/p 2 units PRBCs while hospitalized. Repeat cbc, retic, LDH needed in 3 days post-discharge for stability. (4) Elevated AST (SGOT): uncertain cause. peak level was 215. ALT was also elevated. viral processes (EBV, CMV, COVID-19, etc) can cause a transaminitis. anaplasmosis and ehrlichiosis can also cause. CPK level was normal. He had no symptoms on exam to suggest biliary colic. EBV titers were pending at discharge. Repeat COVID-19 testing was pending at discharge. CMV titers will be obtained during his post-discharge blood draw. He will also have repeat AST/ALT post-discharge to ensure normalization. (5) Thrombocytopenia: mild. trending down over the 48 hours prior to discharge. viral suppression? tick-borne? due to splenomegaly? Platelet count was 123 at discharge. He will need repeat CBC 3 days post-discharge to ensure stability. (6) Splenomegaly: 2nd to hereditary spherocytosis. infectious process (viral, tick-borne disease, etc) can contribute. follow clinically w/ serial exams post-discharge. He was counseled to avoid heavy lifting and contact sports after discharge. Total Time Total Time Spent Total Time Spent (In Minutes): 40 Total Time Includes: Examination of the Patient, Discharge Planning, Medication Reconciliation and Communication With Other Providers Discharge Plan Discharge Items Patient Disposition: Home - Self-Care Reason For Visit: FEVER, HEMOLYSIS, COVID 19 RULE OUT Discharge Diagnosis: 1. fever - uncertain etiology - suspect viral illness vs tick-borne disease - multiple lab tests are pending. 2. concern for COVID-19 infection - first test was negative; second test is pending. 3. equivocal Lyme disease test - confirmatory testing is pending. 4. hereditary spherocytosis with active hemolysis/anemia requiring 2 units of blood. 5. mildly abnormal liver function tests - likely due to #1 above - improving. Activity: As commented below Activity Comment: no contact sports or heavy lifting over 15 pounds due to enlarged spleen Exercise/Sports: Wait until after follow-up appointment Non-emergency contact: Primary Care Provider and Oncologist Call non-emergency contact if: you have any medication questions, your symptoms worsen and you have a fever Follow-up/Referrals: Jermaine Mcrae DO [Physician] - (see Dr Mcrae within 1 week ) Imelda Medrano DO [Primary Care Provider] - (please contact Dr Medrano this week to schedule follow-up for 1-2 weeks ) Diet: Regular Ambulatory Orders: Alanine Aminotransferase (Routine) Timeframe: 20191009 Location: Determined by Patient Ordered By: Memo Carver Aspartate Aminotransferase (Routine) Timeframe: 20191009 Location: Determined by Patient Ordered By: Memo Carver Complete Blood Count with Diff (Routine) Timeframe: 20191009 Location: Determined by Patient Ordered By: Memo Carver Lactate Dehydrogenase (Routine) Timeframe: 20191009 Location: Determined by Patient Ordered By: Memo Carver Reticulocyte Count (Routine) Timeframe: 20191009 Location: Determined by Patient Ordered By: Memo Carver CMV (Cytomegalovirus) IgG Ab (Routine) Timeframe: 20191009 Location: None Selected Ordered By: Memo Carver CMV (Cytomegalovirus) IgM Ab (Routine) Timeframe: 20191009 Location: None Selected Ordered By: Memo Carver Addtl Attending Provider Instructions: You were admitted for a febrile illness as well as significant anemia due to your hereditary spherocytosis. Multiple tests were run to look for the cause of your fever. We did not find any urinary tract infection or pneumonia. A respiratory panel for multiple viruses and some forms of bacteria was negative. Your initial COVID-19 test was negative. We have repeated a second COVID-19 test and this is pending. Your blood cultures are negative (we did not find bacteria in your bloodstream). Your initial mono test was negative. Your lyme test was "equivocal" which means that the test is uncertain if you could have early Lyme disease - thus, a 2nd Lyme test was dispatched and is pending. My suspicion is that you have been suffering from a viral infection or a tick- borne disease. To cover for the latter please complete a course of doxycycline antibiotic. Start this TODAY. This will cover for most forms of tick-borne illness. Know that doxycycline can sometimes cause heartburn. It can also cause a rash if you go out in the sun so be sure to cover up. Since your repeat COVID-19 test is PENDING please return home and isolate from all individuals while awaiting the test. Do not visit with other people or go in public until you hear your test results. Stay at your home. Dr Mcrae would like for you to have repeat blood work THIS MONDAY (as long as COVID test comes back negative). Take the lab slips with you and come to the MAIN ENTRANCE OF THE HOSPITAL for the lab draw. We will call you with these lab results and your COVID-19 test results. Follow-up with your family doctor and Dr Mcrae - both within a week - especially Dr Mcrae. Return to [facility] if -- * you have recurrent fevers over 101 degrees * you have worsening cough or shortness of breath * you have chest pains * you have abdominal pains * you develop rashes * you are dizzy or lightheaded * any other concerns Pending Studies at Discharge: Yes Studies:: 1. lyme testing 2. COVID-19 testing 3. mono testing 4. anaplasmosis and ehrlichiosis testing (2 other tick-borne illnesses) Stand-Alone Forms: My [facility], Smoking Cessation Medications and DC Order Prescriptions: New doxycycline hyclate 100 mg Capsule 100 mg PO BID 12 Days Qty: 24 RF: 0 Continued folic acid 800 mcg Tablet 0.8 mg PO DAILY RF: 0 Discharge Orders: Discharge Order (Routine); Ordered 10/06/19 Ordered By: Memo Carver Admission Data Admit Date/Time: 10/04/19 23:52 Attending Provider: Memo Carver Admit Provider: Scarlet Hull Primary Care Provider: Imelda Medrano Other Providers: Scarlet Hull ; Jermaine Mcrae V. Other Interventions: Discharge Summary Assessment (RN) Last Done: 10/06/19 12:10 DC Date/Time DO NOT enter until pt leaves facility: 10/06/19 12:40 Coding Level of Care Code D/C Day Management >30 mins Diagnoses Febrile illness, acute R50.9 Anemia D58.0 Anemia type: acquired or hereditary hemolytic anemia Hemolytic anemia type: hereditary spherocytosis Hereditary spherocytosis D58.0 Elevated AST (SGOT) R74.0 Thrombocytopenia D69.6 Splenomegaly R16.1
--- NOTE | 2019-10-06 12:31 | Progress Notes ---
DATE: 10/06/2019 DIAGNOSES: 1. Fever of unknown origin. 2. Hereditary spherocytosis. 3. Active hemolysis. 4. Probable viral syndrome. 5. Splenomegaly. SUBJECTIVE: I visited with the patient this morning. Clinically, he was much better. He has not had fever in quite a while well over 24 hours. The hospitalist service is working vigorously to try to identify pathogen. COVID-19 was resent. Based on my initial interview with the patient, I do not believe he suffers from COVID. I believe EBV and CMV titers are to be sent later on today. He is tolerating his diet. He is ambulating ad gerri. He has no pain complaints at this time. His hemoglobin has remained relatively stable, thus indicating the hemolysis is leveling off. I expect as the patient improves, the hemolytic process will slow. OBJECTIVE: GENERAL: A very pleasant 28-year-old gentleman, awake, alert, appropriate, in no acute distress. VITAL SIGNS: Temperature 37.2, pulse 84, respiratory rate 18, blood pressure 109/66. SKIN: Without jaundice. No rashes or lesions otherwise. HEENT: Oral mucosa without erythema or ulceration. HEART: Regular rate and rhythm. No clicks, rubs, murmurs or gallops. LUNGS: Clear to auscultation bilaterally. ABDOMEN: Soft, nontender, nondistended without palpable hepatosplenomegaly. EXTREMITIES: No calf tenderness or swelling. No clubbing, cyanosis or edema. NEUROLOGIC: Grossly intact. LABORATORY DATA: WBC count 12,370, hemoglobin 8.1, platelet count 123,000. Reticulocyte percentage is 14.8, which is steadily falling over 20% when he was first admitted. LDH remains elevated at 1330 and also seems to be trending downward. IMPRESSION: 1. Fever of unknown origin. 2. Hemolytic anemia attributable to #3. 3. Hereditary spherocytosis. 4. Splenomegaly as a consequence of #3 again. PLAN: Again, I was very surprised to see the patient was feeling much better. The hemolytic process seems to be nadiring at this point. I appreciate Dr. Guthrie's effort to track down the pathogen with many viral cultures still pending at this time. Nonetheless, as the patient improves, his hemolytic process will also lessen. Continue supplemental folic acid and perhaps transfusional support if his hemoglobin falls below 7.5 grams per deciliter. If he is to be discharged, I would insist on CBC, reticulocyte count and LDH on a 2-3 day basis and have him seen in our office within 1-2 weeks. Thank you very much for allowing me to participate in his care. If you have any questions or concerns, feel free to contact me at any time. CARLOS
[2019-10-08 10:40] LABS: SARS CoV2 RNA (COVID-19) NOT DETECTED (NOT DETECTED)
[2019-10-09 01:59] LABS: 18KDIGG Band NON-REACTIVE; 23KDIGG Band NON-REACTIVE; 23KDIGM Band NON-REACTIVE; 28KDIGG Band NON-REACTIVE; 30KDIGG Band NON-REACTIVE; 39KDIGG Band NON-REACTIVE; 39KDIGM Band NON-REACTIVE; 41KDIGG Band NON-REACTIVE; 41KDIGM Band NON-REACTIVE; 45KDIGG Band NON-REACTIVE; 58KDIGG Band NON-REACTIVE; 66KDIGG Band NON-REACTIVE; 93KDIGG Band NON-REACTIVE; Lyme Antibodies, WB IgG NEGATIVE (NEGATIVE); Lyme Antibodies, WB IgM NEGATIVE (NEGATIVE)
--- NOTE | 2019-10-10 09:02 | Coding Query ---
CODING QUERY To promote full compliance with coding requirements relating to patient care, provider participation is requested in all cases of library services dean uncertainty. Please assist us with the question(s) below: Coding Question(s): The Discharge Summary documents, "concern for COVID-19 infection - first test was negative; second test is pending.". Please specify below, in your clinical opinion, regarding the concern for COVID-19 infection. ( x ) COVID-19 is now ruled-out ( ) COVID-19 infection ( ) Other: Please specify Physician's Response(s): Thank you Heaven Trammell Principal Diagnosis: "that condition established after study, to be chiefly responsible for occasioning the admission of the patient to the hospital for care." Co-Existing Principal Diagnosis: "when two or more diagnoses equally meet the criteria for principal diagnosis as determined by the circumstances of admission, diagnostic work up, and/or therapy provided, and the Alphabetic Index, Tabular List, or another coding guideline does not provide sequencing direction, any one of the diagnoses may be sequenced first." "When the physician has documented what appears to be a current diagnosis in the body of the record, but has not included the diagnosis in the final diagnostic statement, the physician should be asked whether the diagnosis should be added." (Source [facility]oding [facility] 2 QTR90. p3-4) CARLOS
[2019-10-10 10:08] LABS: EBV Nuclear Ag Antibody <18.00 U/mL; Epstein Barr Virus Early Ag Ab <9.00 U/mL
[2019-10-11 20:14] LABS: Ehrlichia chaff DNA Bld Not Detected (Not Detected)
== END 2019-10-06 12:40 | disposition home or self-care (01) | DRG 868 ==
LOC: 2S 16:12 → ED 16:12 → SUATTDRO 22:32 → 2S 10-04 00:13 → 2W 10-04 14:49 → SUATTDRO 10-04 23:52 → 2S 10-05 13:12